=== PATIENT | female | born 1985 | race Hispanic/Latino ===

== ENCOUNTER 2019-04-23 01:19 | Emergency (ER) | payer SELFPAY ==
[2019-04-23] MEDS ORDERED: BENZONATATE 100 MG CAP PO ONE (01:46)
[2019-04-23] MEDS ORDERED: IPRATROPIUM BROM 0.5MG/2.5ML ONE (01:47)
[2019-04-23] MEDS ORDERED: ALBUTEROL 2.5 MG/3 ML NEB SOL ONE (01:47)
[2019-04-23 02:01] LABS: Urine Specific Gravity >1.030 (1.005-1.030)
[2019-04-23 02:01] LABS: Urine Blood TRACE (NEG); Urine Glucose NEGATIVE (NEG); Urine Protein NEGATIVE (NEG); Urine Specific Gravity >1.030 (1.005-1.030)
--- NOTE | 2019-04-23 02:37 | EDPHYS ---
Physician Documentation [facility] Name: Dionna Pack Age: 33 yrs Sex: Female : 1985 Arrival Date: 04/23/2019 Time: 01:20 Bed 13 Private MD: ED Physician Jeffery Fish HPI: 04/23 01:46 This 33 yrs old Female presents to ER via Ambulatory with complaints of Sore cp Throat, Chest Pain, Runny Nose. 01:47 The patient or guardian reports cough, that is intermittent, with productive sputum, cp that is yellow. Onset: The symptoms/episode began/occurred 3 day(s) ago. Associated signs and symptoms: Pertinent positives: chest pain, with cough, rhinorrhea, sore throat, Pertinent negatives: diarrhea, fever, vomiting. Severity of symptoms: in the emergency department the symptoms are unchanged despite home interventions. Historical: - Allergies: 01:21 No Known Allergies; jb4 - Home Meds: 01:21 None [Active]; jb4 - PMHx: 01:21 None; jb4 - PSHx: 01:21 None; jb4 - Immunization history:: Adult Immunizations up to date. - Social history:: Smoking status: Patient/guardian denies using tobacco, Patient/guardian denies using alcohol, street drugs. - Ebola Screening: : No symptoms or risks identified at this time. ROS: 01:47 Eyes: Negative for injury, pain, redness, and discharge. cp 01:47 Constitutional: Negative for body aches, chills, fever, poor PO intake. 01:47 ENT: Positive for rhinorrhea, sore throat, Negative for drainage from ear(s), ear pain, difficulty swallowing, difficulty handling secretions. 01:47 Cardiovascular: Positive for chest pain, with cough. 01:47 Respiratory: Positive for cough, with yellow sputum, Negative for shortness of breath, wheezing. 01:47 Abdomen/GI: Negative for abdominal pain, nausea, vomiting, and diarrhea. 01:47 Neuro: Negative for headache. 01:47 All other systems are negative. Exam: 01:49 Head/Face: Normocephalic, atraumatic. cp 01:49 Constitutional: The patient appears in no acute distress, alert, awake, non-diaphoretic, non-toxic, well developed, well nourished. 01:49 Eyes: Periorbital structures: appear normal, Conjunctiva: normal, no exudate, no injection, Sclera: no appreciated abnormality, Lids and lashes: appear normal, bilaterally. 01:49 ENT: External ear(s): are unremarkable, Ear canal(s): are normal, clear, TM's: bulging, is not appreciated, bilaterally, dullness, bilaterally, erythema, is not appreciated, bilaterally, Nose: is normal, Mouth: Lips: moist, Oral mucosa: moist, Posterior pharynx: Airway: no evidence of obstruction, patent, Tonsils: with erythema, no enlargement, no exudate, Uvula: midline, erythema, that is mild, exudate, is not appreciated. 01:49 Neck: ROM/movement: is normal, is supple, without pain, no range of motions limitations, no meningismus, no nuchal rigidity, Lymph nodes: no appreciated lymphadenopathy. 01:49 Chest/axilla: Inspection: normal, Palpation: is normal, no crepitus, no tenderness. 01:49 Cardiovascular: Rate: normal, Rhythm: regular, Heart sounds: murmur, not appreciated, Edema: is not appreciated, JVD: is not appreciated. 01:49 Respiratory: the patient does not display signs of respiratory distress, Respirations: normal, no use of accessory muscles, no retractions, no splinting, no tachypnea, labored breathing, is not present, Breath sounds: rales, are not appreciated, decreased breath sounds, are not appreciated, rhonchi, are not appreciated, stridor, is not appreciated, wheezing: is not appreciated. 01:49 Abdomen/GI: Exam negative for discomfort, distension, guarding, Inspection: abdomen appears normal. 01:49 Skin: no rash present. Vital Signs: 01:21 BP 109 / 77; Pulse 95; Resp 16; Temp 98.3(O); Pulse Ox 99% on R/A; Weight 63.5 kg (R); jb4 Height 5 ft. 0 in. (152.40 cm) (R); Pain 2/10; 02:46 BP 114 / 79; Pulse 82; Resp 18; Pulse Ox 99% on R/A; jb4 01:21 Body Mass Index 27.34 (63.50 kg, 152.40 cm) jb4 MDM: 01:28 Patient medically screened. cp 01:51 Differential diagnosis: bronchitis, flu, URI, strep throat. cp 02:36 Data reviewed: vital signs, nurses notes, lab test result(s), and as a result, I will cp discharge patient. 02:36 Antibiotic administration: Not indicated, the patient does not have an appreciated cp infiltrate. Counseling: I had a detailed discussion with the patient and/or guardian regarding: the historical points, exam findings, and any diagnostic results supporting the discharge/admit diagnosis, lab results, to return to the emergency department if symptoms worsen or persist or if there are any questions or concerns that arise at home. Response to treatment: the patient's symptoms have mildly improved after treatment, and as a result, I will discharge patient. 04/23 01:30 Order name: Influenza Screen (a \T\ B) cp 04/23 01:30 Order name: Strep cp 04/23 01:54 Order name: Urine Dipstick--Ancillary (enter results) oe 04/23 01:55 Order name: Urine --Ancillary (enter results) oe 04/23 02:39 Order name: Throat Culture EDAZ 04/23 01:30 Order name: Urine Test (obtain specimen); Complete Time: 01:53 cp Administered Medications: 01:53 Drug: Albuterol 2.5 mg Route: Inhalation; jb4 02:07 Follow up: Response: No adverse reaction jb4 01:54 Drug: AtroVENT Aerosol 0.5 mg Route: Inhalation; jb4 02:07 Follow up: Response: No adverse reaction jb4 01:54 Drug: Tessalon Perle 200 mg Route: PO; jb4 02:07 Follow up: Response: No adverse reaction jb4 Disposition: 03:49 Co-signature as Attending Physician, Jeffery Fish MD. pkl Disposition: 04/23/19 02:37 Discharged to Home. Impression: Acute upper respiratory infection, unspecified. - Condition is Stable. - Discharge Instructions: Upper Respiratory Infection, Adult. - Prescriptions for Ibuprofen 800 mg Oral Tablet - take 1 tablet by ORAL route every 8 hours As needed take with food; 30 tablet. Tessalon Perles 100 mg Oral Capsule - take 2 capsule by ORAL route every 8 hours As needed; 30 capsule. Albuterol Sulfate 90 mcg/actuation - inhale 1-2 puff by INHALATION route every 4-6 hours; 1 Inhaler. - Medication Reconciliation Form, Thank You Letter, Antibiotic Education, Prescription Opioid Use, Work release form form. - Follow up: Private Physician; When: 2 - 3 days; Reason: Worsening of condition. - Problem is new. - Symptoms have improved. Signatures: Dispatcher [employer] EDMS Jeffery Fish MD MD pkl Nikoals Hernandez PA PA Cesar Galeano, RN RN jb4 Corrections: (The following items were deleted from the chart) 02:48 02:37 04/23/2019 02:37 Discharged to Home. Impression: Acute upper respiratory jb4 infection, unspecified. Condition is Stable. Forms are Medication Reconciliation Form, Thank You Letter, Antibiotic Education, Prescription Opioid Use. Follow up: Private Physician; When: 2 - 3 days; Reason: Worsening of condition. Problem is new. Symptoms have improved. cp
--- NOTE | 2019-04-23 02:37 | ER ---
Nurse's Notes [facility] Name: Dionna Pack Age: 33 yrs Sex: Female : 1985 Arrival Date: 04/23/2019 Time: 01:20 Bed 13 Private MD: Diagnosis: Acute upper respiratory infection, unspecified Presentation: 04/23 01:21 Presenting complaint: Patient states: Starting 3 days ago I felt like my allergies were jb4 acting up. It progressed to being congested and having a soar throat. Now when I cough I have chest pain. 01:21 Transition of care: patient was not received from another setting of care. Onset of jb4 symptoms was April 20, 2019. Risk Assessment: Do you want to hurt yourself or someone else? Patient reports no desire to harm self or others. Initial Sepsis Screen: Does the patient meet any 2 criteria? HR > 90 bpm. Yes Does the patient have a suspected source of infection? Yes: Productive cough/pneumonia. Care prior to arrival: None. 01:21 Method Of Arrival: Ambulatory jb4 01:21 Acuity: CORTES 4 jb4 Triage Assessment: 01:21 General: Appears in no apparent distress. comfortable, Behavior is calm, cooperative, jb4 appropriate for age. Pain: Complains of pain in chest, throat Pain does not radiate. Pain currently is 2 out of 10 on a pain scale. EENT: Ear canal clear on left ear and right ear Throat is clear is reddened. Neuro: Level of Consciousness is awake, alert, obeys commands, Oriented to person, place, time, situation. Cardiovascular: Patient's skin is warm and dry. Respiratory: Airway is patent Respiratory effort is even, unlabored, Respiratory pattern is regular, symmetrical. GI: No deficits noted. No signs and/or symptoms were reported involving the gastrointestinal system. : No deficits noted. No signs and/or symptoms were reported regarding the genitourinary system. Derm: Skin is intact, Skin is pink, warm \T\ dry. Musculoskeletal: Circulation, motion, and sensation intact. Range of motion: intact in all extremities. Historical: - Allergies: 01:21 No Known Allergies; jb4 - Home Meds: 01:21 None [Active]; jb4 - PMHx: :21 None; jb4 - PSHx: 01:21 None; jb4 - Immunization history:: Adult Immunizations up to date. - Social history:: Smoking status: Patient/guardian denies using tobacco, Patient/guardian denies using alcohol, street drugs. - Ebola Screening: : No symptoms or risks identified at this time. Screenin:21 Abuse screen: Denies threats or abuse. Nutritional screening: No deficits noted. jb4 Tuberculosis screening: No symptoms or risk factors identified. Fall Risk None identified. Assessment: 01:21 General: see triage assessment.. jb4 02:46 Reassessment: Patient appears in no apparent distress at this time. Patient and/or jb4 family updated on plan of care and expected duration. Pain level reassessed. Patient is alert, oriented x 3, equal unlabored respirations, skin warm/dry/pink. Patient states feeling better. Vital Signs: 01:21 BP 109 / 77; Pulse 95; Resp 16; Temp 98.3(O); Pulse Ox 99% on R/A; Weight 63.5 kg (R); jb4 Height 5 ft. 0 in. (152.40 cm) (R); Pain 2/10; 02:46 BP 114 / 79; Pulse 82; Resp 18; Pulse Ox 99% on R/A; jb4 01:21 Body Mass Index 27.34 (63.50 kg, 152.40 cm) jb4 ED Course: 01:20 Patient arrived in ED. ds1 01:21 Cesar Epps, RN is Primary Nurse. jb4 01:21 Arm band placed on left wrist. jb4 01:21 Patient has correct armband on for positive identification. Placed in gown. Bed in low jb4 position. Call light in reach. Side rails up X 1. Pulse ox on. NIBP on. 01:23 Nikolas Hernandez PA is PHCP. cp 01:23 Jeffery Fish MD is Attending Physician. cp 01:31 Triage completed. jb4 01:40 Flu and/or RSV swab sent to lab. Strep swab sent to lab. jb4 01:44 Strep Sent. jb4 01:44 Influenza Screen (a \T\ B) Sent. jb4 01:54 Strep Sent. jb4 01:54 Influenza Screen (a \T\ B) Sent. jb4 02:46 No provider procedures requiring assistance completed. Patient did not have IV access jb4 during this emergency room visit. Administered Medications: 01:53 Drug: Albuterol 2.5 mg Route: Inhalation; jb4 02:07 Follow up: Response: No adverse reaction jb4 01:54 Drug: AtroVENT Aerosol 0.5 mg Route: Inhalation; jb4 02:07 Follow up: Response: No adverse reaction jb4 01:54 Drug: Tessalon Perle 200 mg Route: PO; jb4 02:07 Follow up: Response: No adverse reaction jb4 Outcome: 02:37 Discharge ordered by . jody 02:46 Discharged to home ambulatory. jb4 02:46 Condition: stable 02:46 Discharge instructions given to patient, Instructed on discharge instructions, follow up and referral plans. medication usage, Demonstrated understanding of instructions, follow-up care, medications, Prescriptions given X 3. 02:48 Patient left the ED. jb4 Signatures: Gin Arias ds1 Nikolas Hernandez PA PA Cesar Galeano, RN RN jb4
[2019-04-23 02:53] VITALS: TEMP 98.3; O2SAT 99
[2019-04-23 02:55] VITALS: BP 114/79
== END 2019-04-23 02:48 | disposition home or self-care (01) ==
LOC: ER 01:19
DX: J06.9 Acute upper respiratory infection, unspecified (principal)
CPT/HCPCS: 81003; 81025; 87070; 87081; 87804; 99284

== ENCOUNTER 2019-11-24 15:29 | Emergency (ER) | payer SELFPAY ==
[2019-11-24] MEDS ORDERED: MINERAL OIL ENEMA 135 ML BTL PR ONE (16:59)
--- NOTE | 2019-11-24 18:22 | ER ---
Nurse's Notes [facility] Name: Dionna Pack Age: 34 yrs Sex: Female : 1985 Arrival Date: 11/24/2019 Time: 15:33 Bed 8 Private MD: Diagnosis: Foreign body in ear Presentation: 11/23 15:52 Chief complaint: Patient states: my LEFTear started hurting last night, my daughter tw2 left the window open and i think a bug crawled in or something but it is still hurting, i feel something moving, my coworker brought me here because i didn't have car to get here sooner. Coronavirus screen: Proceed with normal triage. Patient denies a cough. Patient denies shortness of breath or difficulty breathing. Patient denies measured and/or subjective temperature greater than 100.4F prior to today's visit. Patient denies travel on a cruise ship or to a country the [facility] currently lists as an affected area. Patient denies contact with known and/or suspected case of COVID-19. Ebola Screen: Patient denies travel to an Ebola-affected area in the 21 days before illness onset. Initial Sepsis Screen: Does the patient meet any 2 criteria? No. Patient's initial sepsis screen is negative. Does the patient have a suspected source of infection? No. Patient's initial sepsis screen is negative. Risk Assessment: Do you want to hurt yourself or someone else? Patient reports no desire to harm self or others. Onset of symptoms was November 24, 2019. 15:52 Method Of Arrival: Ambulatory tw2 15:52 Acuity: CORTES 4 tw2 Triage Assessment: 15:55 General: Appears in no apparent distress. Behavior is calm, cooperative, appropriate tw2 for age. Pain: Complains of pain in left ear. EENT: Reports pain in left ear. Historical: - Allergies: 15:54 No Known Allergies; tw2 - Home Meds: 15:54 None [Active]; tw2 - PMHx: 15:54 None; tw2 - PSHx: 15:54 ; tw2 - Immunization history:: Adult Immunizations. - Social history:: Smoking status: Patient/guardian denies using. Screenin:45 Abuse screen: Denies threats or abuse. Denies injuries from another. Nutritional sv screening: No deficits noted. Tuberculosis screening: No symptoms or risk factors identified. Fall Risk None identified. Assessment: 16:46 General: Appears in no apparent distress. uncomfortable, well groomed, Behavior is ph calm, cooperative, appropriate for age. Pain: Complains of pain in left ear. Neuro: Level of Consciousness is awake, alert, obeys commands, Oriented to person, place, time, situation. Cardiovascular: Capillary refill < 3 seconds in bilateral fingers Patient's skin is warm and dry. Respiratory: Airway is patent Respiratory effort is even, unlabored. EENT: Reports pain in left ear. Derm: Skin is intact, is healthy with good turgor, Skin is pink, warm \T\ dry. Musculoskeletal: Circulation, motion, and sensation intact. Range of motion: intact in all extremities. 17:47 Reassessment: Stan LOPEZ at the bedside attempting to get the insect out of her left ear. sv 18:41 Reassessment: Patient appears in no apparent distress at this time. No changes from sv previously documented assessment. Patient and/or family updated on plan of care and expected duration. Pain level reassessed. Patient is alert, oriented x 3, equal unlabored respirations, skin warm/dry/pink. Vital Signs: 15:52 BP 131 / 94; Pulse 78; Resp 17; Temp 97.8(TE); Pulse Ox 100% on R/A; Weight 61.23 kg tw2 (R); Height 5 ft. 0 in. (152.40 cm); Pain 8/10; 18:33 BP 127 / 98; Pulse 81; Resp 18; Temp 98.0; Pulse Ox 96% on R/A; ph 15:52 Body Mass Index 26.37 (61.23 kg, 152.40 cm) tw2 ED Course: 15:33 Patient arrived in ED. mr 15:54 Triage completed. tw2 15:54 Arm band placed on. tw2 16:30 Yumi Correa RN is Primary Nurse. sv 16:31 Stan Sena PA is PHCP. jr8 16:31 Nikolas Ladd MD is Attending Physician. jr8 16:45 Patient has correct armband on for positive identification. Bed in low position. Call sv light in reach. Door closed. Head of bed elevated. 18:00 Patient did not have IV access during this emergency room visit. Ear irrigation: Route ph left ear with Normal Saline amount 250ml Patient tolerated well. 18:20 Yumi Vora MD is Referral Physician. jr8 18:31 removal of foreign body (bug) from L ear, after multiple attempts and irrigation ph foreign body only partially removed, attempt to remove remainder has become painful for pt, provider to place pt on antibiotics to prevent infection and pt instructed to follow up w/ ENT. Administered Medications: 17:00 Drug: Viscous Lidocaine Liquid (4 %) 5 ml Route: Mucous Membrane; sv 18:34 Follow up: Response: No adverse reaction ph Outcome: 18:20 Discharge ordered by . jr8 18:41 Discharged to home ambulatory. sv 18:41 Condition: stable 18:41 Discharge instructions given to patient, Instructed on discharge instructions, follow up and referral plans. medication usage, Demonstrated understanding of instructions, follow-up care, medications, Prescriptions given X 1. 18:42 Patient left the ED. sv Signatures: Yumi Correa, RN RN De GuzmanEmiliana mr SenaStan, JOHN LOPEZ jr8 iKra Salcedo, SONAL PRUITT Alessandra Pierre RN RN tw2 Corrections: (The following items were deleted from the chart) 16:48 15:52 Chief complaint: Patient states: my LEFT eye started hurting last night, my tw2 daughter left the window open and i think a bug crawled in or something but it is still hurting, i feel something moving, my coworker brought me here because i didn't have car to get here sooner tw2
--- NOTE | 2019-11-24 18:22 | EDPHYS ---
Physician Documentation [facility] Name: Dionna Pack Age: 34 yrs Sex: Female : 1985 Arrival Date: 11/24/2019 Time: 15:33 Bed 8 Private MD: ED Physician Nikolas Ladd HPI: 11/23 17:02 This 34 yrs old Female presents to ER via Ambulatory with complaints of Ear jr8 Pain. 17:02 The patient presents with a foreign body sensation, presumably from an insect, pain. jr8 The complaints affect the left ear. Onset: The symptoms/episode began/occurred acutely, today. Modifying factors: The symptoms are alleviated by nothing, the symptoms are aggravated by nothing. Associated signs and symptoms: The patient has no apparent associated signs or symptoms. Severity of symptoms: At their worst the symptoms were mild in the emergency department the symptoms are unchanged. The patient has not experienced similar symptoms in the past. The patient has not recently seen a physician. Patient stated that she feels something crawling in ear. Historical: - Allergies: 15:54 No Known Allergies; tw2 - Home Meds: 15:54 None [Active]; tw2 - PMHx: 15:54 None; tw2 - PSHx: 15:54 ; tw2 - Immunization history:: Adult Immunizations. - Social history:: Smoking status: Patient/guardian denies using. ROS: 17:02 Eyes: Negative for injury, pain, redness, and discharge, Neck: Negative for injury, jr8 pain, and swelling, Cardiovascular: Negative for chest pain, palpitations, and edema, Respiratory: Negative for shortness of breath, cough, wheezing, and pleuritic chest pain, Abdomen/GI: Negative for abdominal pain, nausea, vomiting, diarrhea, and constipation, Back: Negative for injury and pain, MS/Extremity: Negative for injury and deformity, Skin: Negative for injury, rash, and discoloration, Neuro: Negative for headache, weakness, numbness, tingling, and seizure. 17:02 ENT: Positive for ear pain, foreign body sensation. Exam: 17:02 Constitutional: This is a well developed, well nourished patient who is awake, alert, jr8 and in no acute distress. ENT: Nares patent. No nasal discharge, no septal abnormalities noted. Tympanic membranes are normal. Left external canal with insect in ear. Right canal normal. Oropharynx with no redness, swelling, or masses, exudates, or evidence of obstruction, uvula midline. Mucous membranes moist. Cardiovascular: Regular rate and rhythm with a normal S1 and S2. No gallops, murmurs, or rubs. Normal PMI, no JVD. No pulse deficits. Respiratory: Lungs have equal breath sounds bilaterally, clear to auscultation and percussion. No rales, rhonchi or wheezes noted. No increased work of breathing, no retractions or nasal flaring. Skin: Warm, dry with normal turgor. Normal color with no rashes, no lesions, and no evidence of cellulitis. MS/ Extremity: Pulses equal, no cyanosis. Neurovascular intact. Full, normal range of motion. Neuro: Awake and alert, GCS 15, oriented to person, place, time, and situation. Cranial nerves II-XII grossly intact. Motor strength 5/5 in all extremities. Sensory grossly intact. Cerebellar exam normal. Normal gait. Vital Signs: 15:52 BP 131 / 94; Pulse 78; Resp 17; Temp 97.8(TE); Pulse Ox 100% on R/A; Weight 61.23 kg tw2 (R); Height 5 ft. 0 in. (152.40 cm); Pain 8/10; 18:33 BP 127 / 98; Pulse 81; Resp 18; Temp 98.0; Pulse Ox 96% on R/A; ph 15:52 Body Mass Index 26.37 (61.23 kg, 152.40 cm) tw2 Procedures: 18:18 Foreign Body Removal: insect, from the left ear canal, by using a curette, lidocaine jr8 lavage, normal saline irrigation, The patient tolerated the removal well. MDM: 16:31 Patient medically screened. jr8 18:18 Data reviewed: vital signs, nurses notes. Data interpreted: Pulse oximetry: on room air jr8 is 100 %. Interpretation: normal. Counseling: I had a detailed discussion with the patient and/or guardian regarding: the historical points, exam findings, and any diagnostic results supporting the discharge/admit diagnosis, the need for outpatient follow up, an ENT specialist, to return to the emergency department if symptoms worsen or persist or if there are any questions or concerns that arise at home. ED course: Was able to extract most of insect but still some in there but too deep and too near TM to get the rest. Will put on Abx drops and send to ENT for rest of extraction . Administered Medications: 17:00 Drug: Viscous Lidocaine Liquid (4 %) 5 ml Route: Mucous Membrane; sv 18:34 Follow up: Response: No adverse reaction ph Disposition: 11/24/19 18:20 Discharged to Home. Impression: Foreign body in ear. - Condition is Stable. - Discharge Instructions: Ear Foreign Body. - Prescriptions for Ciprodex 0.3- 0.1 % Otic Drops, Suspension - instill 4 drop by OTIC route every 12 hours for 7 days , for ears ONLY; 1 Container. - Medication Reconciliation Form, Thank You Letter, Antibiotic Education, Prescription Opioid Use form. - Follow up: Yumi Vora MD; When: 2 - 3 days; Reason: Recheck today's complaints, Continuance of care, Re-evaluation by your physician. - Problem is new. - Symptoms have improved. Addendum: 11/25/2019 18:42 Co-signature as Attending Physician, Nikolas Ladd MD I agree with the assessment and c diaz plan of care. Signatures: Yumi Correa, RN RN Nikolas Ayon MD MD cha Roszak, Josh, PA PA jr8 Alessandra Pierre RN RN tw2 Kira Salcedo RN ph Corrections: (The following items were deleted from the chart) 11/23 18:42 18:20 11/24/2019 18:20 Discharged to Home. Impression: Foreign body in ear. Condition sv is Stable. Forms are Medication Reconciliation Form, Thank You Letter, Antibiotic Education, Prescription Opioid Use. Follow up: Yumi Vora; When: 2 - 3 days; Reason: Recheck today's complaints, Continuance of care, Re-evaluation by your physician. Problem is new. Symptoms have improved. jr8
[2019-11-24 18:48] VITALS: BP 127/98; TEMP 98; O2SAT 96
== END 2019-11-24 18:42 | disposition home or self-care (01) ==
LOC: ER 15:29
PROC: 09C47ZZ Extirpation of Matter from Left External Auditory Canal, Via Natural or Artificial Opening (ICD-10-PCS; principal; 2019-11-24)
DX: T16.2XXA Foreign body in left ear, initial encounter (principal); X58.XXXA Exposure to other specified factors, initial encounter; Y93.9 Activity, unspecified; Y92.013 Bedroom of single-family (private) house as the place of occurrence of the external cause
CPT/HCPCS: 99283

== ENCOUNTER 2020-04-16 23:36 | Emergency (ER) | payer SELFPAY ==
--- NOTE | 2020-04-17 01:31 | EDPHYS ---
Physician Documentation [facility] Name: Dionna Pack Age: 34 yrs Sex: Female : 1985 Arrival Date: 04/16/2020 Time: 23:38 Bed 4 Private MD: ED Physician Cachorro Lewis HPI: 04/17 00:37 This 34 yrs old Female presents to ER via Wheelchair with complaints of Leg mh7 Injury, Fall Injury. 00:37 The patient presents with an injury. The complaints affect the dorsum of left foot. mh7 Context: The problem was sustained at a relative's home, resulted from a direct blow, from a heavy object. Onset: The symptoms/episode began/occurred 2 day(s) ago. 00:55 Modifying factors: The symptoms are alleviated by nothing. the symptoms are aggravated mh7 by weight bearing. Associated signs and symptoms: Pertinent positives: swelling, Pertinent negatives calf tenderness, fever, nausea, numbness, rash, tingling, vomiting, warmth, weakness. Treatment prior to arrival includes: no previous treatment. Severity of symptoms: At their worst the symptoms were moderate, 2 day(s) ago, in the emergency department the symptoms have improved, moderately. Patient states that she was helping someone move a heavy piece of furniture down some stairs when the furniture slipped and fell onto her foot. She denies any other injuries.. 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 - Social history:: Smoking status: unknown Patient/guardian denies using alcohol, street drugs. ROS: 04/17 00:55 Constitutional: Negative for fever, chills, and weight loss, Eyes: Negative for injury, mh7 pain, redness, and discharge, ENT: Negative for injury, pain, and discharge, Neck: Negative for injury, pain, and swelling, Cardiovascular: Negative for chest pain, palpitations, and edema, Respiratory: Negative for shortness of breath, cough, wheezing, and pleuritic chest pain, Abdomen/GI: Negative for abdominal pain, nausea, vomiting, diarrhea, and constipation, Back: Negative for injury and pain, : Negative for injury, bleeding, discharge, and swelling, Skin: Negative for injury, rash, and discoloration, Neuro: Negative for headache, weakness, numbness, tingling, and seizure, Psych: Negative for depression, anxiety, suicide ideation, homicidal ideation, and hallucinations, Allergy/Immunology: Negative for hives, rash, and allergies, Endocrine: Negative for neck swelling, polydipsia, polyuria, polyphagia, and marked weight changes, Hematologic/Lymphatic: Negative for swollen nodes, abnormal bleeding, and unusual bruising. Exam: 00:55 Constitutional: This is a well developed, well nourished patient who is awake, alert, mh7 and in no acute distress. Head/Face: Normocephalic, atraumatic. Eyes: Pupils equal round and reactive to light, extra-ocular motions intact. Lids and lashes normal. Conjunctiva and sclera are non-icteric and not injected. Cornea within normal limits. Periorbital areas with no swelling, redness, or edema. Neck: Trachea midline, no thyromegaly or masses palpated, and no cervical lymphadenopathy. Supple, full range of motion without nuchal rigidity, or vertebral point tenderness. No Meningismus. Chest/axilla: Normal chest wall appearance and motion. Nontender with no deformity. No lesions are appreciated. Cardiovascular: Regular rate and rhythm with a normal S1 and S2. No gallops, murmurs, or rubs. Normal PMI, no JVD. No pulse deficits. Respiratory: Lungs have equal breath sounds bilaterally, clear to auscultation and percussion. No rales, rhonchi or wheezes noted. No increased work of breathing, no retractions or nasal flaring. Abdomen/GI: Soft, non-tender, with normal bowel sounds. No distension or tympany. No guarding or rebound. No evidence of tenderness throughout. Back: No spinal tenderness. No costovertebral tenderness. Full range of motion. Neuro: Awake and alert, GCS 15, oriented to person, place, time, and situation. Cranial nerves II-XII grossly intact. Motor strength 5/5 in all extremities. Sensory grossly intact. Cerebellar exam normal. Normal gait. Psych: Awake, alert, with orientation to person, place and time. Behavior, mood, and affect are within normal limits. 01:21 Musculoskeletal/extremity: Extremities: noted in the dorsum of left foot: abrasion, mh7 contusion, pain, swelling, noted in the left ankle: pain, swelling, ROM: intact in all extremities, Circulation is intact in all extremities. Pulses: are normal with no appreciated deficits, Perfusion: the patient is normally perfused throughout, Perfusion: the extremity is normally perfused throughout, Calf tenderness, is absent, Edema, is not appreciated, Sensation intact. Compartment Syndrome exam of affected extremity: is normal. no numbness, no tingling, no sensation deficit, no palor, no weak pulses, Joints: Weight bearing: able to fully bear weight, Tendon exam: specific tendon testing normal through active and passive range of motion 01:21 Skin: injury, abrasion(s), small abrasion noted, of the dorsum of left foot, contusion(s), that are superficial, of the dorsum of left foot. Vital Signs: 04/16 23:45 BP 145 / 96; Pulse 89; Resp 16; Temp 98.3; Pulse Ox 99% ; Weight 63.5 kg; Height 5 ft. rr5 0 in. (152.40 cm); Pain 9/10; 04/17 01:08 BP 105 / 63; Pulse 72; Resp 16; Pulse Ox 100% on R/A; ll2 01:35 BP 110 / 70; Pulse 75; Resp 16; Pulse Ox 99% ; rr5 04/16 23:45 Body Mass Index 27.34 (63.50 kg, 152.40 cm) rr5 MDM: 04/16 23:56 Patient medically screened. mh7 04/17 01:21 Differential diagnosis: dislocation, closed fracture, contusion, abrasion. Data 7 reviewed: vital signs, nurses notes, radiologic studies, plain films. Data interpreted: Pulse oximetry: on room air is 100 %. Interpretation: normal. Counseling: I had a detailed discussion with the patient and/or guardian regarding: the historical points, exam findings, and any diagnostic results supporting the discharge/admit diagnosis, radiology results, the need for outpatient follow up, to return to the emergency department if symptoms worsen or persist or if there are any questions or concerns that arise at home. Response to treatment: the patient's symptoms have markedly improved after treatment. 04/16 23:58 Order name: Foot Left 3 View XRAY 7 04/17 00:00 Order name: Ankle Left 3 View XRAY 7 04/17 01:54 Order name: Aircast Ankle Splint; Complete Time: :54 5 Administered Medications: 01:24 Drug: Ibuprofen 600 mg Route: PO; rr5 01:51 Follow up: Response: Medication administered at discharge. rr5 Disposition: 04/17/20 01:30 Discharged to Home. Impression: Left Foot Contusion . - Condition is Stable. - Discharge Instructions: Foot Contusion, [id number]. - Prescriptions for Ibuprofen 600 mg Oral Tablet - take 1 tablet by ORAL route every 8 hours As needed take with food; 15 tablet. - Medication Reconciliation Form, Thank You Letter, Antibiotic Education, Prescription Opioid Use form. - Follow up: Private Physician; When: 1 - 2 days; Reason: Worsening of condition, Recheck today's complaints, Continuance of care, Re-evaluation by your physician. Follow up: Clyde Mccray DPM; When: 1 - 2 days; Reason: Worsening of condition, Recheck today's complaints. - Problem is new. - Symptoms have improved. Signatures: Dispatcher [employer] EDMS Cliff Aguilar RN RN rr5 Cachorro Lewis MD MD mh7 Corrections: (The following items were deleted from the chart) 01:44 01:30 04/17/2020 01:30 Discharged to Home. Impression: Left Foot Contusion . Condition rr5 is Stable. Forms are Medication Reconciliation Form, Thank You Letter, Antibiotic Education, Prescription Opioid Use. Follow up: Private Physician; When: 1 - 2 days; Reason: Worsening of condition, Recheck today's complaints, Continuance of care, Re-evaluation by your physician. Follow up: Clyde Mccray; When: 1 - 2 days; Reason: Worsening of condition, Recheck today's complaints. Problem is new. Symptoms have improved. 7 :54 01:54 Misc. Order ordered. rr5 rr5 01:55 01:44 04/17/2020 01:30 Discharged to Home. Impression: Left Foot Contusion . Condition rr5 is Stable. Discharge Instructions: Foot Contusion, [id number]. Prescriptions for Ibuprofen 600 mg Oral Tablet - take 1 tablet by ORAL route every 8 hours As needed take with food; 15 tablet. and Forms are Medication Reconciliation Form, Thank You Letter, Antibiotic Education, Prescription Opioid Use. Follow up: Private Physician; When: 1 - 2 days; Reason: Worsening of condition, Recheck today's complaints, Continuance of care, Re-evaluation by your physician. Follow up: Clyde Mccray; When: 1 - 2 days; Reason: Worsening of condition, Recheck today's complaints. Problem is new. Symptoms have improved. rr5
--- NOTE | 2020-04-17 01:31 | ER ---
Nurse's Notes [facility] Name: Dionna Pack Age: 34 yrs Sex: Female : 1985 Arrival Date: 04/16/2020 Time: 23:38 Bed 4 Private MD: Diagnosis: Left Foot Contusion Presentation: 04/16 23:45 Chief complaint: Patient states: my left foot is hurting. 2 days ago I fell down on a rr5 stairs 2 steps height then a dresser fell on my foot. denies Loss of consciousness. 23:45 Coronavirus screen: Client denies travel out of the [place] in the last 14 days. At this rr5 time, the client does not indicate any symptoms associated with coronavirus-19. Ebola Screen: Patient negative for fever greater than or equal to 101.5 degrees Fahrenheit, and additional compatible Ebola Virus Disease symptoms Patient denies exposure to infectious person. Patient denies travel to an Ebola-affected area in the 21 days before illness onset. Initial Sepsis Screen: Does the patient meet any 2 criteria? No. Patient's initial sepsis screen is negative. Does the patient have a suspected source of infection? No. Patient's initial sepsis screen is negative. Risk Assessment: Do you want to hurt yourself or someone else? Patient reports no desire to harm self or others. Onset of symptoms was April 14, 2020. 23:45 Method Of Arrival: Wheelchair rr5 23:45 Acuity: CORTES 4 rr5 BAIT TIER: 04/17 00:03 LMP 04/10/2020 rr5 Historical: - Allergies: 04/16 23:45 No Known Allergies; rr5 - Home Meds: 23:45 None [Active]; rr5 - PMHx: 23:45 None; rr5 - PSHx: 23:45 ; rr5 - Immunization history:: Adult Immunizations up to date, Last tetanus immunization: < 5 years ago. - Social history:: Smoking status: unknown Patient/guardian denies using alcohol, street drugs. Screenin:51 Abuse screen: Denies threats or abuse. Denies injuries from another. Nutritional rr5 screening: No deficits noted. Tuberculosis screening: No symptoms or risk factors identified. Fall Risk Fall in past 12 months (25 points). IV access (20 points). Total Benton Fall Scale indicates High Risk Score (45 or more points). Fall prevention measures have been instituted. Side Rails Up X 2 Placed Close to Nursing Station Frequent Obs/Assessments Occuring As available patient and family educated on Fall Prevention Program and Strategies. Assessment: 23:51 General: Appears in no apparent distress. uncomfortable, Behavior is calm, cooperative, rr5 appropriate for age. Pain: Complains of pain in left foot Pain currently is 9 out of 10 on a pain scale. Quality of pain is described as aching, Pain began suddenly, Is intermittent. Neuro: Level of Consciousness is awake, alert, obeys commands, Oriented to person, place, time, situation. Cardiovascular: Capillary refill < 3 seconds Patient's skin is warm and dry. Respiratory: Airway is patent Respiratory effort is even, unlabored, Respiratory pattern is regular, symmetrical. GI: No signs and/or symptoms were reported involving the gastrointestinal system. : No signs and/or symptoms were reported regarding the genitourinary system. EENT: No signs and/or symptoms were reported regarding the EENT system. Derm: Skin is intact, is healthy with good turgor, Skin temperature is warm Wound noted right foot and left foot Wound is abrasion. Musculoskeletal: Capillary refill < 3 seconds, Swelling present in left foot. 04/17 01:00 Reassessment: Patient appears in no apparent distress at this time. Patient and/or rr5 family updated on plan of care and expected duration. Pain level reassessed. Patient is alert, oriented x 3, equal unlabored respirations, skin warm/dry/pink. awaiting for result. 01:40 Reassessment: Patient appears in no apparent distress at this time. Patient is alert, rr5 oriented x 3, equal unlabored respirations, skin warm/dry/pink. discharge instruction given and explained without complaints made. Vital Signs: 04/16 23:45 BP 145 / 96; Pulse 89; Resp 16; Temp 98.3; Pulse Ox 99% ; Weight 63.5 kg; Height 5 ft. rr5 0 in. (152.40 cm); Pain 02/23; 04/17 01:08 BP 105 / 63; Pulse 72; Resp 16; Pulse Ox 100% on R/A; ll2 01:35 BP 110 / 70; Pulse 75; Resp 16; Pulse Ox 99% ; rr5 04/16 23:45 Body Mass Index 27.34 (63.50 kg, 152.40 cm) rr5 ED Course: 04/16 23:38 Patient arrived in ED. am2 23:47 Cachorro Lewis MD is Attending Physician. 7 23:47 Cliff Aguilar, RN is Primary Nurse. rr5 23:50 Triage completed. rr5 23:51 Arm band placed on right wrist. rr5 23:51 Patient has correct armband on for positive identification. Bed in low position. Call ea light in reach. Side rails up X 1. 11 00:50 Foot Left 3 View XRAY In Process Unspecified. EDMS 00:50 Ankle Left 3 View XRAY In Process Unspecified. EDMS 01:29 Clyde Mccray DPM is Referral Physician. 7 01:30 air cast ortho boots left foot. rr5 01:35 No provider procedures requiring assistance completed. Patient did not have IV access rr5 during this emergency room visit. 01:52 Primary Nurse role handed off by Cliff Aguilar RN rr5 01:52 Cliff Aguilar RN is Primary Nurse. rr5 Administered Medications: 01:24 Drug: Ibuprofen 600 mg Route: PO; rr5 01:51 Follow up: Response: Medication administered at discharge. rr5 Outcome: 01:30 Discharge ordered by . 7 01:40 Discharged to home ambulatory. rr5 01:40 Condition: stable 01:40 Discharge instructions given to patient, Instructed on discharge instructions, follow up and referral plans. medication usage, Demonstrated understanding of instructions, follow-up care, medications, Prescriptions given X 1. 01:44 Patient left the ED. rr5 01:55 Patient left the ED. rr5 Signatures: Dispatcher [employer] EDWI Cuca Stone am2 Rima Wade RN RN ea Roque, Raymond, RN RN rr5 Ketty Renteria RN RN 2 Cachorro Lewis MD MD 7 Corrections: (The following items were deleted from the chart) 01:58 01:30 air cast ortho boots rr5 rr5
[2020-04-17] MEDS ORDERED: IBUPROFEN 400 MG TAB ONE (01:36)
[2020-04-17] MEDS ORDERED: IBUPROFEN 200 MG TAB PO ONE (01:36)
[2020-04-17 01:54] VITALS: TEMP 98.3
[2020-04-17 01:55] VITALS: BP 105/63; O2SAT 100
--- NOTE | 2020-04-17 09:57 | RAD REPORT ---
EXAM DESCRIPTION: Ankle Left 3 View CLINICAL HISTORY: 34 years,Female,trauma COMPARISON: None. TECHNIQUE: Three views of the left foot and three views of the left ankle. FINDINGS: No acute fractures or dislocations are identified. No osseous destructive lesions. There is a radiopaque density along the plantar surface of the foot which could be external to the patient . Clinical correlation recommended to exclude a radiopaque foreign body. IMPRESSION: No acute fracture is identified. There is a radiopaque density along the plantar surface of the foot which could be external to the pa tient. Clinical correlation recommended to exclude a radiopaque foreign body. Electronically signed by: Yo Fink MD 04/17/2020 12:56 AM WIND FIELD SERVICE MANAGER Due to temporary technical issues with the PACS/Fluency reporting system, reports are being signed by the in house radiologist without review as a courtesy to ensure prompt reporting. The interpreting r adiologist is fully responsible for the content of the report.
--- NOTE | 2020-04-17 09:58 | RAD REPORT ---
EXAM DESCRIPTION: Foot Left 3 View CLINICAL HISTORY: 34 years,Female,trauma COMPARISON: None. TECHNIQUE: Three views of the left foot and three views of the left ankle. FINDINGS: No acute fractures or dislocations are identified. No osseous destructive lesions. There is a radio paque density along the plantar surface of the foot which could be external to the patient. Clinical correlation recommended to exclude a radiopaque foreign body. IMPRESSION: No acute fracture is identified. There is a radiopaque density along the plantar surface of the foot which could be external to the pa tient. Clinical correlation recommended to exclude a radiopaque foreign body. Electronically signed by: Yo Fink MD 04/17/2020 12:56 AM IRON MINER Due to temporary technical issues with the PACS/Fluency reporting system, reports are being signed by the in house radiologist without review as a courtesy to ensure prompt reporting. The interpreting r adiologist is fully responsible for the content of the report.
== END 2020-04-17 01:55 | disposition home or self-care (01) ==
LOC: ER 23:36
DX: S90.32XA Contusion of left foot, initial encounter (principal); W20.8XXA Other cause of strike by thrown, projected or falling object, initial encounter; Y93.89 Activity, other specified; Y92.89 Other specified places as the place of occurrence of the external cause
CPT/HCPCS: 99284

== ENCOUNTER 2021-01-04 13:03 | Emergency (ER) | payer SELFPAY ==
--- NOTE | 2021-01-04 15:28 | ER ---
Nurse's Notes [facility] Name: Dionna Pack Age: 35 yrs Sex: Female : 1985 Arrival Date: 01/04/2021 Time: 13:05 Bed Waiting Private MD: Diagnosis: Diarrhea, unspecified Presentation: 01/04 13:19 Coronavirus screen: Client denies travel out of the [place] in the last 14 days. Ebola hb Screen: Patient denies exposure to infectious person. Patient denies travel to an Ebola-affected area in the 21 days before illness onset. Initial Sepsis Screen: Does the patient meet any 2 criteria? No. Patient's initial sepsis screen is negative. Does the patient have a suspected source of infection? No. Patient's initial sepsis screen is negative. Risk Assessment: Do you want to hurt yourself or someone else? Patient reports no desire to harm self or others. Onset of symptoms was December 31, 2020. 13:19 Method Of Arrival: Ambulatory hb 13:19 Acuity: CORTES 4 hb 13:19 Chief complaint: Patient states: abd pain that began today after eating. hb Historical: - Allergies: 13:37 NSAIDS (Non-Steroidal Anti-Inflammatory Drug); ss - Home Meds: 13:23 None [Active]; ss - PMHx: 13:23 None; ss - PSHx: 13:23 ; ss - Immunization history:: Adult Immunizations up to date, Client reports having NOT received the Covid vaccine. - Social history:: Smoking status: Patient denies any tobacco usage or history of. Screenin:19 Abuse screen: Denies threats or abuse. Denies injuries from another. Nutritional ss screening: No deficits noted. Tuberculosis screening: Never had TB. Fall Risk None identified. Assessment: 13:19 General: Appears in no apparent distress. comfortable, Behavior is calm, cooperative, ss Denies fever, feeling ill, fatigue, chills. Pain: Complains of pain in abdomen Pain currently is 0 out of 10 on a pain scale. Quality of pain is described as tender, Is episodic. Neuro: Level of Consciousness is awake, alert, obeys commands, Oriented to person, place, time, situation, Hedge Fund Manager are equal bilaterally. Cardiovascular: Capillary refill < 3 seconds is brisk in bilateral fingers Patient's skin is warm and dry. Respiratory: Airway is patent Trachea midline Respiratory effort is even, unlabored, Respiratory pattern is regular, symmetrical. GI: Abdomen is non-distended. : Denies. EENT: Oral mucosa is moist. Throat is clear. Derm: Skin is intact, is healthy with good turgor, Skin is dry, Skin is pink, warm \T\ dry. normal. Musculoskeletal: Range of motion: intact in all extremities, Swelling absent. Vital Signs: 13:19 BP 125 / 87; Pulse 90; Resp 16; Temp 97.7; Pulse Ox 99% on R/A; Weight 68.04 kg; Height ss 5 ft. 0 in. (152.40 cm); Pain 0/10; 13:19 Body Mass Index 29.30 (68.04 kg, 152.40 cm) ss ED Course: 13:05 Patient arrived in ED. rg4 13:21 Triage completed. hb 13:23 Arm band placed on right wrist. ss 13:28 Richa Carr FNP-C is PHCP. kb 13:28 Nikolas Ladd MD is Attending Physician. kb 15:35 Patient has correct armband on for positive identification. Bed in low position. Call ss light in reach. 15:35 No provider procedures requiring assistance completed. Patient did not have IV access ss during this emergency room visit. 15:40 Aspen Burciaga, RN is Primary Nurse. hb Administered Medications: No medications were administered Outcome: 15:27 Discharge ordered by . kb 15:40 Patient left the ED. hb Signatures: Richa Carr FNP-C FNP-Ckb Smirch, Shelby, RN RN Aspen Burciaga RN RN Lucina Vela rg4 Corrections: (The following items were deleted from the chart) 13:22 13:19 Chief complaint: Parent and/or Guardian states: abd pain and diarrhea that begen hb 4 days ago. Was seen in [place] [facility] and told it was a 24 hour virus. hb 13:22 13:19 Pulse 103bpm; Resp 18bpm; Pulse Ox 100% RA; Temp 98.9F Temporal; 37.5 kg; Pain hb 0/10; hb 13:29 13:19 BP 125 / 87; Pulse 90bpm; Resp 16bpm; Pulse Ox 99% RA; Temp 97.7F; 68.04 kg; ss Height 5 ft. 0 in.; BMI: 29.2; Pain 0/10; hb 13:37 13:23 Allergies: No Known Allergies; ss ss
--- NOTE | 2021-01-04 15:28 | EDPHYS ---
Physician Documentation [facility] Name: Dionna Pack Age: 35 yrs Sex: Female : 1985 Arrival Date: 01/04/2021 Time: 13:05 Bed Waiting Private MD: ED Physician Nikolas Ladd HPI: 01/04 13:55 This 35 yrs old Female presents to ER via Ambulatory with complaints of Fever, kb Vomiting. 13:55 The patient presents with abdominal pain in the epigastric area. Onset: The kb symptoms/episode began/occurred this morning. The symptoms do not radiate. Associated signs and symptoms: Pertinent positives: diarrhea, Pertinent negatives: nausea and vomiting, fever. The symptoms are described as achy. Modifying factors: The symptoms are alleviated by nothing, the symptoms are aggravated by nothing. Severity of pain: At its worst the pain was mild moderate in the emergency department the pain has resolved. The patient has not experienced similar symptoms in the past. The patient has not recently seen a physician. Pt reports upper abd pain and diarrhea after eating this morning. Symptoms now resolved. Both kids have similar symptoms. Historical: - Allergies: 13:37 NSAIDS (Non-Steroidal Anti-Inflammatory Drug); ss - Home Meds: 13:23 None [Active]; ss - PMHx: 13:23 None; ss - PSHx: 13:23 ; ss - Immunization history:: Adult Immunizations up to date, Client reports having NOT received the Covid vaccine. - Social history:: Smoking status: Patient denies any tobacco usage or history of. ROS: 13:56 Constitutional: Negative for fever, chills, and weight loss. kb 13:56 Abdomen/GI: Positive for abdominal pain, diarrhea, Negative for nausea and vomiting. 13:56 All other systems are negative. Exam: 13:56 Constitutional: This is a well developed, well nourished patient who is awake, alert, kb and in no acute distress. Head/Face: Normocephalic, atraumatic. ENT: Moist Mucous membranes Cardiovascular: Regular rate and rhythm with a normal S1 and S2. No gallops, murmurs, or rubs. No pulse deficits. Respiratory: Respirations even and unlabored. No increased work of breathing, no retractions or nasal flaring. Skin: Warm, dry with normal turgor. Normal color. MS/ Extremity: Pulses equal, no cyanosis. Neurovascular intact. Full, normal range of motion. Neuro: Awake and alert, GCS 15, oriented to person, place, time, and situation. Moves all extremities. Normal gait. Psych: Awake, alert, with orientation to person, place and time. Behavior, mood, and affect are within normal limits. 13:56 Abdomen/GI: Inspection: abdomen appears normal, Bowel sounds: normal, in all quadrants, Palpation: soft, in all quadrants, mild abdominal tenderness, in the epigastric area. Vital Signs: 13:19 BP 125 / 87; Pulse 90; Resp 16; Temp 97.7; Pulse Ox 99% on R/A; Weight 68.04 kg; Height ss 5 ft. 0 in. (152.40 cm); Pain 0/10; 13:19 Body Mass Index 29.30 (68.04 kg, 152.40 cm) ss MDM: 13:28 Patient medically screened. 13:55 Data reviewed: vital signs, nurses notes. Data interpreted: Pulse oximetry: on room air kb is 99 %. Interpretation: normal. 15:27 Counseling: I had a detailed discussion with the patient and/or guardian regarding: the kb historical points, exam findings, and any diagnostic results supporting the discharge/admit diagnosis, lab results, the need for outpatient follow up, a family practitioner, to return to the emergency department if symptoms worsen or persist or if there are any questions or concerns that arise at home. 15:29 ED course: Tolerating PO intake. 01/04 13:29 Order name: Flu 01/04 13:29 Order name: COVID-19 : Document "Date of Symptom Onset" if Symptomatic. 01/04 13:29 Order name: Influenza Screen (A ; Complete Time: 14:15 EDOH 01/04 14:52 Order name: SARS-COV-2 RT PCR; Complete Time: 14:55 EDOH 01/04 15:14 Order name: PO challenge; Complete Time: 15:14 kb Administered Medications: No medications were administered Disposition: 01/05 09:07 Co-signature as Attending Physician, Nikolas Ladd MD I agree with the assessment and kyle plan of care. Disposition Summary: 01/04/21 15:27 Discharge Ordered Location: Home kb Condition: Stable kb Diagnosis - Diarrhea, unspecified kb Followup: kb - With: Emergency Department - When: As needed - Reason: Worsening of condition Followup: kb - With: Private Physician - When: 2 - 3 days - Reason: Recheck today's complaints, Continuance of care, Re-evaluation by your physician Discharge Instructions: - Discharge Summary Sheet kb - Food Choices to Help Relieve Diarrhea, Adult kb - Diarrhea, Adult, [id number] kb Forms: - Medication Reconciliation Form kb - Thank You Letter kb - Antibiotic Education kb - Prescription Opioid Use kb - Work release form em1 Signatures: Dispatcher [employer] EDMS Richa Carr, SHANK STITCHER-C SHANK STITCHER-Nikolas Lucia MD MD cha Smirch, Shelby, RN RN Aspen Burciaga RN RN Corrections: (The following items were deleted from the chart) 01/04 13:37 13:23 Allergies: No Known Allergies; [facility]
[2021-01-04 15:57] VITALS: BP 125/87; TEMP 97.7; O2SAT 99
== END 2021-01-04 15:40 | disposition home or self-care (01) ==
LOC: ER 13:03
DX: R19.7 Diarrhea, unspecified (principal); Z20.822 Contact with and (suspected) exposure to COVID-19; Z88.6 Allergy status to analgesic agent
CPT/HCPCS: 87804; 99281; U0003

== ENCOUNTER 2021-02-02 21:00 | Emergency (ER) | payer SELFPAY ==
--- OUTSIDE RECORDS SUMMARY | 2021-02-02 21:02 | XMS REPORT | Continuity of Care Document ---
:1985 Author Organization [facility] t Address [address] [place] [address] Care Team Providers Name Role Phone Zaire OBREGON Attending Clinician Anson RN, S Attending Clinician Unavailable Doctor Unassigned, Name Attending Clinician Unavailable Jake Nails DO Attending Clinician Anaid AGUILARP Attending Clinician Xiomara AGUILARP, F Attending Clinician Alayna GLASS CUT OFF SUPERVISOR, B Attending Clinician Problems This patient has no known problems. Allergies, Adverse Reactions, Alerts This patient has no known allergies or adverse reactions. Medications This patient has no known medications. Procedures This patient has no known procedures. Encounters Start End Encounter Admission Attending Care Care Encounter Source Date/Time Date/Time Type Type Clinicians Facility Department ID 2021-01-22 2021-01-22 Emergency Zaire [facility] [id number] 20:36:00 22:45:00 [place] Derek [id number] [place] [id number] [place] [id number] 2021-01-22 2021-01-22 Nurse DAVID Griggs [id number] 00:00:00 00:00:00 Triage Isabelle LUNA [id number] [facility] [id number] 2021-01-22 2021-01-22 Orders Doctor DAVID [id number] 00:00:00 00:00:00 Only Unassigned, CHERYL [id number] [place] [facility] [id number] 2021-01-08 2021-01-08 Emergency [facility] [id number] 11:45:00 13:10:00 Joyce Jake Reed [id number] [place] [id number] [place] [id number] 2021-01-06 2021-01-06 [facility] [id number] 00:28:00 03:00:00 Bar Reed [id number] [place] [id number] [place] [id number] 2020-12-31 2020-12-31 [facility] [id number] 18:26:00 21:47:00 Aimee Reed [id number] [place] [id number] [place] [id number] 2020-12-09 2020-12-10 Emergency [place], [facility] [id number] 20:42:00 01:58:00 Hammad Reed [id number] [place] [id number] [place] [id number] Results Test Description Test Time Test Comments Results Result [facility] e Comments CHEST 1 VIEW 2020-11-16 PORTABLE 18:30:00 [facility] : 1985 Sex: F [facility] [facility], [place] [id number] IMAGING REPORTPatient Name: DONNY SÁNCHEZ Aaronmarissa of Service: [id number]: 35 Sex: F Order #: [id number] Room: ERSDOB: 1985 X-Ray Number: [id number] Record Number: [id number] Hospital Number: [id number] Physician: Flavio JADE Physician: Eve WALKER: Chest APHistory: Shortness of breathComparison: No comparison availableFindings: No focal consolidation, pleural effusion or pneumothorax. Thecardiac and superior mediastinal silhouettes are within normal limits.Impression:No acute cardiopulmonary process.Electronicall y Signed By: Jesse Davalos M.D., 11/16/2020 6:28 PMLegally authenticated by MARYLU LOWE JR 2020-11-16 18:28:06 COVID SYMPTOMATIC ER ONLY 2020-11-16 17:45:00 Test Item Value Reference Range Interpretation Comme nts CORONAVIRUS (COVID-19)BY PCR (test code = TEX51AZO) NEGATIVE ISTAT [id number] 17:10:00 Test Item Value Reference Range Interpretation Comments ISTAT HCG (test <5.0 IU/L A value of l ess than or code = ISHCG) equal to <5 IU /L is considered NEGA TIVE A value between 5 IU/L and 25 IU/L is cons idered INDETERMINATE A value of >25 IU/L is con sidered POSITIVE ANKLE 3 [id number] 04:24:00 [facility] : 1985 [facility] [place], [place] [id number] IMAGING REPORTPatient Name: DONNY SÁNCHEZ IDate of Service: [id number]: 35 Sex: F Order #: [id number] [facility] 1985 [facility] Number: [id number] Record Number: [id number] Hospital Number: [id number] Physician: Flavio JADE Physician: HAILE JADEPROEDINURE: ANKLE 3 VIEWSINDICATIONS: Dx: ankle injury pt sts: pt reports falling and twisting herleft anklenohapsv:lsrshielded3 views left ankleComparison: NoneFindings:No fractures or dislocations.There is a small ankle joint effusion.No significant arthritic change. No radiopaque foreign b olesya.Impression:1. No acute bony abnormality involving the left ankle. A small jointeffusion is present.This document has been electronically signed by: Sebastian Rutledge MD on10/08/2020 04:23:50Legally authenticated by NAZIA Kaplan 2020-10-08 02:56:00
[2021-02-03] MEDS ORDERED: dexAMETHasone 10 MG/ML VIAL ONE (00:05)
[2021-02-03] MEDS ORDERED: LEVALBUTEROL 1.25 MG/3 ML NEB ONE (00:06)
--- NOTE | 2021-02-03 01:14 | ER ---
Nurse's Notes [facility] Name: Dionna Pack Age: 35 yrs Sex: Female : 1985 Arrival Date: 02/02/2021 Time: 21:04 Bed 11 Private MD: Diagnosis: Contact with and (suspected) exposure to hazardous, chiefly nonmedicinal, chemicals Presentation: 02/02 21:14 Chief complaint: Patient states: Pt stated, " I was cleaning the bathroom with bleach kg and it splashed into my face and now I'm having difficulty breathing." This happened at 20:00 Pt denies any vision problems. Coronavirus screen: Client denies travel out of the [place] in the last 14 days. At this time, unable to obtain information related to travel outside the [place] Client presents with at least one sign or symptom that may indicate coronavirus-19. Standard/surgical mask placed on the client. Provider contacted for isolation considerations. Ebola Screen: Patient negative for fever greater than or equal to 101.5 degrees Fahrenheit, and additional compatible Ebola Virus Disease symptoms Patient denies exposure to infectious person. Patient denies travel to an Ebola-affected area in the 21 days before illness onset. No symptoms or risks identified at this time. Initial Sepsis Screen: Does the patient meet any 2 criteria? No. Patient's initial sepsis screen is negative. Does the patient have a suspected source of infection? No. Patient's initial sepsis screen is negative. Risk Assessment: Do you want to hurt yourself or someone else? Patient reports no desire to harm self or others. Onset of symptoms was February 02, 2021 at 20:00. 21:14 Method Of Arrival: Ambulatory kg 21:14 Acuity: CORTES 4 kg Triage Assessment: 21:18 General: Appears in no apparent distress. Behavior is calm, cooperative, appropriate kg for age, quiet. Pain: Complains of pain in anterior aspect of right upper chest, anterior aspect of left upper chest and mid-sternal area Pain currently is 9 out of 10 on a pain scale. at worst was 9 out of 10 on a pain scale. level that patient reports is acceptable is 3 out of 10 on a pain scale. Respiratory: Reports cough that is non-productive, pain with cough pain with movement Pain is 9 out of 10 on a pain scale. pain with respiration Pain is 9 out of 10 on a pain scale. Onset: The symptoms/episode began/occurred just prior to arrival, the patient has mild shortness of breath. PEDIATRIC DIETICIAN: 21:18 LMP 01/10/2021 kg Historical: - Allergies: 21:18 None; kg - Home Meds: 21:18 None [Active]; kg - PMHx: 21:18 Asthma; kg - PSHx: 21:18 ; Ligation of fallopian tube; kg - Immunization history:: Adult Immunizations up to date, Client reports receiving the Adin \\T\\ Adin single-dose vaccine. Date received January 04, 2021. - Social history:: Smoking status: Patient denies any tobacco usage or history of. Patient uses alcohol, occasionally. Screenin:57 Abuse screen: Denies threats or abuse. Denies injuries from another. Nutritional zb screening: No deficits noted. Tuberculosis screening: No symptoms or risk factors identified. Fall Risk None identified. Assessment: 22:50 Reassessment: patient clarified that bleach didn't splash on her face. she inhaled the zb fumes while she was cleaning and she was unable to breathe due to the fume being so strong. 22:56 General: Appears in no apparent distress. comfortable, Behavior is calm, cooperative, zb appropriate for age. Pain: Denies pain. Neuro: Level of Consciousness is awake, alert, obeys commands, Oriented to person, place, time, situation, Moves all extremities. Full function Reports dizziness. Cardiovascular: Patient's skin is warm and dry. Rhythm is regular. Respiratory: Reports cough that is non-productive, hacking, persistent since today Airway is patent Respiratory effort is even, unlabored, Respiratory pattern is regular, symmetrical, the patient has mild shortness of breath. GI: Patient currently denies nausea, vomiting. Derm: Skin is intact, is healthy with good turgor, Skin is dry, Skin is normal, Skin temperature is warm. Musculoskeletal: Range of motion: intact in all extremities. 02/03 01:13 Reassessment: Patient appears in no apparent distress at this time. Patient and/or em family updated on plan of care and expected duration. Pain level reassessed. Patient is alert, oriented x 3, equal unlabored respirations, skin warm/dry/pink. Patient states feeling better. Vital Signs: 02/02 21:14 Pulse 83; Resp 20; Temp 98.3(TE); Pulse Ox 99% on R/A; Weight 65.77 kg (R); Height 5 kg ft. 0 in. (152.40 cm) (R); Pain 9/10; 22:57 BP 129 / 75; em 21:14 Body Mass Index 28.32 (65.77 kg, 152.40 cm) kg ED Course: 21:04 Patient arrived in ED. bp1 21:18 Triage completed. kg 21:18 Arm band placed on left wrist. kg 22:01 Oracio Gomze PA is PHCP. jmm 22:01 Cachorro Lewis MD is Attending Physician. [facility] 22:38 Albina Menjivar RN is Primary Nurse. zb 22:58 Patient has correct armband on for positive identification. Pulse ox on. NIBP on. Door zb closed. Noise minimized. 02/03 01:21 No provider procedures requiring assistance completed. Patient did not have IV access em during this emergency room visit. Administered Medications: 02/02 12:45 Drug: Xopenex (levalbuterol) (3) 1.25 mg Route: Inhalation; zb 02/03 00:13 Follow up: Response: No adverse reaction zb 02/02 22:45 Drug: Decadron (dexamethasone) 10 mg Route: IM; Site: left deltoid; zb 02/03 00:13 Follow up: Response: No adverse reaction zb Outcome: 01:13 Discharge ordered by . [facility] 01:21 Discharged to home ambulatory. em 01:21 Condition: improved 01:21 Discharge instructions given to patient, Instructed on discharge instructions, follow up and referral plans. medication usage, Demonstrated understanding of instructions, follow-up care, medications, Prescriptions given X 2. 01:21 Patient left the ED. em Signatures: Oracio Gomez PA PA jmm Munoz, Edgar, RN SONAL em Macarena Guaman bp1 Albina Menjivar RN RN zb Aida Gomez RN RN kg
--- NOTE | 2021-02-03 01:14 | EDPHYS ---
Physician Documentation [facility] Name: Dionna Pack Age: 35 yrs Sex: Female : 1985 Arrival Date: 02/02/2021 Time: 21:04 Bed 11 Private MD: ED Physician Cachorro Lewis HPI: 02/02 23:19 This 35 yrs old Female presents to ER via Ambulatory with complaints of jmm Breathing Difficulty. 23:19 The patient has shortness of breath at rest. Onset: The symptoms/episode began/occurred jmm acutely, just prior to arrival. Duration: The symptoms are continuous. The patient's shortness of breath is aggravated by nothing, is alleviated by nothing. Associated signs and symptoms: Pertinent negatives: fever. 35-year-old female with a history of asthma the presents emerged department with complaints of shortness of breath which occurred after a chemical exposure. Patient states she was cleaning with bleach.. ON CALL: 21:18 LMP 01/10/2021 kg Historical: - Allergies: 21:18 None; kg - Home Meds: 21:18 None [Active]; kg - PMHx: 21:18 Asthma; kg - PSHx: 21:18 ; Ligation of fallopian tube; kg - Immunization history:: Adult Immunizations up to date, Client reports receiving the Adin \T\ Adin single-dose vaccine. Date received January 04, 2021. - Social history:: Smoking status: Patient denies any tobacco usage or history of. Patient uses alcohol, occasionally. ROS: 23:19 Constitutional: Negative for fever, chills, and weight loss, Cardiovascular: Negative jmm for chest pain, palpitations, and edema. 23:19 Respiratory: Positive for cough. 23:19 All other systems are negative. Exam: 23:19 Constitutional: This is a well developed, well nourished patient who is awake, alert, jmm and in no acute distress. Head/Face: atraumatic. Eyes: EOMI, no conjunctival erythema appreciated ENT: Moist Mucus Membranes Neck: Trachea midline, Supple Chest/axilla: Normal chest wall appearance and motion. Cardiovascular: Regular rate and rhythm. No edema appreciated 23:19 Abdomen/GI: Non distended, soft Back: Normal ROM Skin: General appearance color normal MS/ Extremity: Moves all extremities, no obvious deformities appreciated, no edema noted to the lower extremities Neuro: Awake and alert, normal gait Psych: Behavior is normal, Mood is normal, Patient is cooperative and pleasant 23:19 Respiratory: the patient does not display signs of respiratory distress, Respirations: normal, Breath sounds: wheezing: that is mild, is scattered. Vital Signs: 21:14 Pulse 83; Resp 20; Temp 98.3(TE); Pulse Ox 99% on R/A; Weight 65.77 kg (R); Height 5 kg ft. 0 in. (152.40 cm) (R); Pain 9/10; 22:57 BP 129 / 75; em 21:14 Body Mass Index 28.32 (65.77 kg, 152.40 cm) kg MDM: 23:19 Patient medically screened. [facility] 02/03 01:11 Data reviewed: vital signs, nurses notes. Counseling: I had a detailed discussion with charbel the patient and/or guardian regarding: the historical points, exam findings, and any diagnostic results supporting the discharge/admit diagnosis, the need for outpatient follow up, to return to the emergency department if symptoms worsen or persist or if there are any questions or concerns that arise at home. ED course: Patient states feeling much better after lisinopril and steroids. Patient will be prescribed home steroids and albuterol for home and is otherwise given strict return precautions. Patient understood and agrees plan of care. Administered Medications: 02/02 12:45 Drug: Xopenex (levalbuterol) (3) 1.25 mg Route: Inhalation; 02/03 00:13 Follow up: Response: No adverse reaction 02/02 22:45 Drug: Decadron (dexamethasone) 10 mg Route: IM; Site: left deltoid; 02/03 00:13 Follow up: Response: No adverse reaction Disposition: 03:19 Co-signature as Attending Physician, Cachorro Lewis MD. [email or web address] Disposition Summary: 02/03/21 01:13 Discharge Ordered Location: Home [facility] Condition: Stable [facility] Diagnosis - Contact with and (suspected) exposure to hazardous, chiefly nonmedicinal, chemicals [facility] Followup: [facility] - With: Private Physician - When: 2 - 3 days - Reason: Recheck today's complaints, Continuance of care, Re-evaluation by your physician Discharge Instructions: - Discharge Summary Sheet [facility] - Chemical Inhalation Injury, Adult [facility] Forms: - Medication Reconciliation Form [facility] - Thank You Letter [facility] - Antibiotic Education [facility] - Prescription Opioid Use [facility] Prescriptions: - albuterol sulfate 90 mcg/actuation Inhalation HFA aerosol inhaler - inhale 2 puff by INHALATION route every 4 hours; 1 Pump; Refills: 0, Product [facility] Selection Permitted - Prednisone 20 mg Oral Tablet - take 3 tablets by ORAL route once daily for 5 days; 15 tablet; Refills: 0, [facility] Product Selection Permitted Signatures: Oracio Gomez PA PA jmm Holmes, Maurice, MD MD mh7 Albina Menjivar RN RN Aida Pierre RN RN kg
[2021-02-03 01:28] VITALS: TEMP 98.3; O2SAT 99
[2021-02-03 01:29] VITALS: BP 129/75
== END 2021-02-03 01:21 | disposition home or self-care (01) ==
LOC: ER 21:00
DX: R05 Cough (principal); Z77.098 Contact with and (suspected) exposure to other hazardous, chiefly nonmedicinal, chemicals
CPT/HCPCS: 96372; 99284

== ENCOUNTER 2021-03-14 16:37 | Emergency (ER) | payer SELFPAY ==
[2021-03-14 17:46] LABS: Urine Blood Trace-intact (Negative); Urine Glucose Negative (Negative); Urine Protein Negative (Negative); Urine Specific Gravity 1.025 (1.005-1.030)
[2021-03-14 19:21] LABS: Absolute Lymphocytes (CBC) 2.6 K/uL (0.7-4.9); Basophils % 0.3 % (0-1.3); Lymphocytes % 20.3 % (15.3-44.8); MPV 8.4 fL (7.6-11.3); RBC Red Blood Cell Count 4.56 M/uL (3.86-4.86)
[2021-03-14] MEDS ORDERED: ONDANSETRON 4 MG/2 ML VIAL ONE ×2 (19:22→20:44)
[2021-03-14] MEDS ORDERED: MORPHINE 4 MG/ML SYR ONE (19:22)
[2021-03-14 19:52] LABS: Urine Specific Gravity/Preg 1.025 (1.005-1.030)
[2021-03-14 20:07] LABS: BUN Blood Urea Nitrogen 17 mg/dL (7-18); Bicarbonate 28 mmol/L (21-32); Glucose Level 93 mg/dL (74-106); Potassium 3.5 mmol/L (3.5-5.1); Sodium Level 142 mmol/L (136-145)
[2021-03-14 20:12] LABS: HCG, Quantitative < 1 mIU/mL (1-3)
[2021-03-14] MEDS ORDERED: MECLIZINE HCL 12.5 MG TAB ONE (20:43)
[2021-03-14] MEDS ORDERED: NA CHLORIDE 0.9% 1,000 ML ONE (20:44)
--- NOTE | 2021-03-14 21:18 | RAD REPORT ---
EXAM DESCRIPTION: CTAbdomen Pelvis W Contrast - 03/14/2021 9:04 pm CLINICAL HISTORY: Abdominal pain. ABD PAIN COMPARISON: CT ABD PELVIS W CONTRAST dated 06/28/2012; CT ABD PELVIS W CONTRAST dated 01/17/2012 TECHNIQUE: Biphasic CT imaging of the abdomen and pelvis was performed with 100 ml non-ionic IV cont rast. All CT scans are performed using dose optimization technique as appropriate and may include automated exposure control or mA/KV adjustment according to patient size. FINDINGS: The lung bases are clear. The liver, spleen, pancreas, adrenal glands and kidneys are within normal limits. No bowel obstruction, free air, free fluid or abscess. Small fat containing umbilical hernia. The josefina endix is normal. Mild sigmoid diverticulosis coli without diverticulitis. No evidence of significant lymphadenopathy. No suspicious bony findings. IMPRESSION: No acute intra-abdominal or pelvic finding.
--- NOTE | 2021-03-14 22:01 | ER ---
Nurse's Notes [facility] Name: Dionna Pack Age: 35 yrs Sex: Female : 1985 Arrival Date: 03/14/2021 Time: 16:37 Bed 27 Private MD: Diagnosis: Abdominal pain. Dizziness Presentation: 03/14 17:24 Chief complaint: Patient states: Headache, abdomina pain, dizziness, nausea starting kg yesterday. Coronavirus screen: Vaccine status: Patient reports receiving the 1st dose of the Covid vaccine. Date January 24, 2021 Adin \T\ Adin. Coronavirus screen: headache. Ebola Screen: Patient negative for fever greater than or equal to 101.5 degrees Fahrenheit, and additional compatible Ebola Virus Disease symptoms Patient denies exposure to infectious person. Patient denies travel to an Ebola-affected area in the 21 days before illness onset. Initial Sepsis Screen: Does the patient meet any 2 criteria? No. Patient's initial sepsis screen is negative. Does the patient have a suspected source of infection? No. Patient's initial sepsis screen is negative. Risk Assessment: Do you want to hurt yourself or someone else? Patient reports no desire to harm self or others. Onset of symptoms was March 13, 2021. 17:24 Method Of Arrival: Ambulatory kg 17:24 Acuity: CORTES 3 kg Triage Assessment: 17:29 Headache History: Denies prior headaches. General: Appears in no apparent distress. kg Behavior is calm, cooperative, appropriate for age, quiet. Pain: Complains of pain in head, abdomen Pain currently is 10 out of 10 on a pain scale. at worst was 10 out of 10 on a pain scale. level that patient reports is acceptable is 3 out of 10 on a pain scale. Quality of pain is described as pulsating, Pain began 1 day ago. Also complains of nausea, shortness of breath. Neuro: Reports dizziness, headache in left weakness. 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 - Social history:: Smoking status: Patient denies any tobacco usage or history of. Patient uses alcohol, occasionally. Screenin:54 Abuse screen: Denies threats or abuse. Nutritional screening: No deficits noted. kh1 Tuberculosis screening: No symptoms or risk factors identified. Fall Risk None identified. No fall in past 12 months (0 pts). No secondary diagnosis (0 pts). No IV (0 pts). Ambulatory Aid- None/Bed Rest/Nurse Assist (0 pts). Gait- Normal/Bed Rest/Wheelchair (0 pts) Mental Status- Oriented to own ability (0 pts). Assessment: 17:52 General: Appears in no apparent distress. comfortable, Behavior is calm, cooperative, kh1 appropriate for age. Pain: Complains of pain in abdomen Pain radiates to back Pain currently is 10 out of 10 on a pain scale. Quality of pain is described as sharp, Pain began weeks ago. Neuro: No deficits noted. Level of Consciousness is awake, alert, obeys commands, Oriented to person, place, time, situation, Reports dizziness, headache frontal area. Cardiovascular: No deficits noted. Respiratory: No deficits noted. Reports Airway is patent Respiratory effort is even, unlabored, Respiratory pattern is regular. 19:26 General: Appears in no apparent distress. well groomed, Behavior is calm, cooperative. dc2 Pain: Complains of pain in lower right and left abdominal pain since yesterday , states it comes and goes with PRS 10/10. Co generalized headache that started with the abdominal pain PRS 10/10 . Neuro: No deficits noted. 19:26 : No deficits noted. dc2 19:26 GI: Reports lower abdominal pain, upper abdominal pain, nausea, Reports last BM was dc2 this morning and normal. Vital Signs: 17:24 Pulse 90; Resp 20; Temp 98.2(TE); Pulse Ox 100% on R/A; Weight 81.65 kg (R); Height 5 kg ft. 0 in. (152.40 cm) (R); Pain 10/10; 17:24 BP 135 / 105 RA Sitting (auto/); kg 19:25 BP 128 / 85; Pulse 87; Resp 18; Temp 97.5; Weight 45.36 kg; Pain 10/10; dc2 20:34 BP 117 / 73; Pulse 75; Resp 17; Pulse Ox 100% on R/A; dc2 21:00 BP 130 / 81; Pulse 102; Resp 18; Pulse Ox 99% ; Pain 0/10; dc2 19:25 Body Mass Index 19.53 (45.36 kg, 152.40 cm) dc2 ED Course: 16:37 Patient arrived in ED. ds1 17:29 Triage completed. kg 17:29 Arm band placed on left wrist. kg 17:52 Golden Weller MD is Attending Physician. kdr 17:52 Cara Sparks is Primary Nurse. kh1 18:28 Urine --Ancillary (enter results) Sent. kh1 19:03 Initial lab(s) drawn, by sc, sent to lab. Inserted saline lock: 20 gauge in right vg1 antecubital area, using aseptic technique. Blood collected. 19:05 Abo/rh Typing Sent. vg1 19:05 Basic Metabolic Panel Sent. vg1 19:05 CBC with Diff Sent. vg1 19:05 Quantitative Hcg Sent. vg1 19:45 Attending Physician role handed off by Golden Weller MD pkl 19:45 Jeffery Fish MD is Attending Physician. pkl 19:52 ED physician to see patient. dc2 20:00 Patient has correct armband on for positive identification. Bed in low position. Call dc2 light in reach. Side rails up X 1. 20:[address] via wheelchair. dc2 20:56 CT Abd/Pelvis - IV Contrast Only Sent. dc2 21:03 CT Abd/Pelvis - IV Contrast Only In Process Unspecified. EDMS 21:13 Patient moved back from CT. dc2 22:20 No provider procedures requiring assistance completed. IV discontinued, intact, dc2 bleeding controlled, No redness/swelling at site. Pressure dressing applied. Administered Medications: 20:24 Drug: Zofran (Ondansetron) 4 mg Route: IVP; Site: right antecubital; dc2 21:30 Follow up: Response: Nausea is decreased dc2 21:30 Follow up: Response: Nausea is decreased dc2 20:25 Drug: NS 0.9% 1000 ml Route: IV; Rate: 1000 ml; Infused Over: 1 hrs; Site: right dc2 antecubital; Delivery: Primary tubing; 21:20 Follow up: IV Status: Completed infusion; IV Intake: 1000ml dc2 20:25 Drug: Antivert (meclizine) 25 mg Route: PO; dc2 21:20 Follow up: Response: Marked relief of symptoms dc2 Intake: 21:20 IV: 1000ml; Total: 1000ml. dc2 Outcome: 21:59 Discharge ordered by . enzo 22:18 Discharge instructions given to patient, Instructed on discharge instructions, follow dc2 up and referral plans. Demonstrated understanding of instructions. 22:29 Discharged to home ambulatory. dc2 22:29 Condition: stable 22:32 Patient left the ED. dc2 Signatures: Dispatcher [employer] EDMS Jeffery Fish MD MD pkl Rittger, Kevin, MD MD kdr Sanford, Gin ds1 Willow Vela RN RN vg1 Aida Gomez RN RN kg Cara Sparks 1 Keri Matthews RN RN dc2 Corrections: (The following items were deleted from the chart) 17:31 17:29 Home Meds: None; kg kg 17:31 17:29 PSHx: Ligation of fallopian tube; kg kg
--- NOTE | 2021-03-14 22:01 | EDPHYS ---
Physician Documentation [facility] Name: Dionna Pack Age: 35 yrs Sex: Female : 1985 Arrival Date: 03/14/2021 Time: 16:37 Bed 27 Private MD: ED Physician Jeffery Fish HPI: 03/14 18:52 This 35 yrs old Female presents to ER via Ambulatory with complaints of kdr Headache, Dizziness. 18:52 Patient states that for the past couple of days she has had intermittent shortness of kdr breath and dizziness. She indicated that she initially gets short of breath and then the dizziness develops after that. She had similar symptoms when she was initially diagnosed with 2 prior pregnancies. She has no other related symptoms. She is otherwise stable. She does not appear toxic or in any way emergently ill at this time. Onset: The symptoms/episode began/occurred gradually, 2 day(s) ago. Severity of symptoms: At their worst the symptoms were mild in the emergency department the symptoms are unchanged. The patient has experienced similar episodes in the past, several times, When diagnosed with prior pregnancies. The patient has not recently seen a physician. 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 - Social history:: Smoking status: Patient denies any tobacco usage or history of. Patient uses alcohol, occasionally. ROS: 18:52 Constitutional: Negative for fever, chills, and weight loss, Eyes: Negative for injury, kdr pain, redness, and discharge, ENT: Negative for injury, pain, and discharge, Neck: Negative for injury, pain, and swelling, Cardiovascular: Negative for chest pain, palpitations, and edema, Abdomen/GI: Negative for abdominal pain, nausea, vomiting, diarrhea, and constipation, Back: Negative for injury and pain, : Negative for injury, bleeding, discharge, and swelling, MS/Extremity: Negative for injury and deformity, Skin: Negative for injury, rash, and discoloration, Psych: Negative for depression, anxiety, suicide ideation, homicidal ideation, and hallucinations, Allergy/Immunology: Negative for hives, rash, and allergies, Endocrine: Negative for neck swelling, polydipsia, polyuria, polyphagia, and marked weight changes, Hematologic/Lymphatic: Negative for swollen nodes, abnormal bleeding, and unusual bruising. 18:52 Respiratory: Positive for shortness of breath, at rest. Transient, Negative for cough, dyspnea on exertion, hemoptysis, orthopnea, pleurisy, sputum production, wheezing. 18:52 Neuro: Positive for dizziness. Exam: 18:52 Constitutional: This is a well developed, well nourished patient who is awake, alert, kdr and in no acute distress. Head/Face: Normocephalic, atraumatic. Eyes: Pupils equal round and reactive to light, extra-ocular motions intact. Lids and lashes normal. Conjunctiva and sclera are non-icteric and not injected. Cornea within normal limits. Periorbital areas with no swelling, redness, or edema. Neck: Trachea midline, no thyromegaly or masses palpated, and no cervical lymphadenopathy. Supple, full range of motion without nuchal rigidity, or vertebral point tenderness. No Meningismus. Chest/axilla: Normal chest wall appearance and motion. Nontender with no deformity. No lesions are appreciated. Cardiovascular: Regular rate and rhythm with a normal S1 and S2. No gallops, murmurs, or rubs. Normal PMI, no JVD. No pulse deficits. Respiratory: Lungs have equal breath sounds bilaterally, clear to auscultation and percussion. No rales, rhonchi or wheezes noted. No increased work of breathing, no retractions or nasal flaring. Abdomen/GI: Soft, non-tender, with normal bowel sounds. No distension or tympany. No guarding or rebound. No evidence of tenderness throughout. Back: No spinal tenderness. No costovertebral tenderness. Full range of motion. Skin: Warm, dry with normal turgor. Normal color with no rashes, no lesions, and no evidence of cellulitis. MS/ Extremity: Pulses equal, no cyanosis. Neurovascular intact. Full, normal range of motion. Neuro: Awake and alert, GCS 15, oriented to person, place, time, and situation. Cranial nerves II-XII grossly intact. Motor strength 5/5 in all extremities. Sensory grossly intact. Cerebellar exam normal. Normal gait. Psych: Awake, alert, with orientation to person, place and time. Behavior, mood, and affect are within normal limits. Vital Signs: 17:24 Pulse 90; Resp 20; Temp 98.2(TE); Pulse Ox 100% on R/A; Weight 81.65 kg (R); Height 5 kg ft. 0 in. (152.40 cm) (R); Pain 10/10; 17:24 BP 135 / 105 RA Sitting (auto/); kg 19:25 BP 128 / 85; Pulse 87; Resp 18; Temp 97.5; Weight 45.36 kg; Pain 10/10; dc2 20:34 BP 117 / 73; Pulse 75; Resp 17; Pulse Ox 100% on R/A; dc2 21:00 BP 130 / 81; Pulse 102; Resp 18; Pulse Ox 99% ; Pain 0/10; dc2 19:25 Body Mass Index 19.53 (45.36 kg, 152.40 cm) dc2 MDM: 19:45 Patient medically screened. pkl 21:56 Data reviewed: vital signs, nurses notes, lab test result(s), radiologic studies, CT pkl scan. ED course: Patient feeling better. Asymptomatic. ED course: Advised to follow with her PCP in 2 to 3 days. To return if necessary. Patient understood instructions. 03/14 17:46 Order name: Urine Dipstick-Ancillary; Complete Time: 19:46 EDME 03/14 17:48 Order name: Urine --Ancillary (enter results); Complete Time: 19:54 bd 03/14 18:51 Order name: Abo/rh Typing; Complete Time: 19:46 kdr 03/14 18:51 Order name: Basic Metabolic Panel; Complete Time: 20:19 kdr 03/14 18:51 Order name: CBC with Diff; Complete Time: 19:54 kdr 03/14 18:51 Order name: Quantitative Hcg; Complete Time: 20:19 kdr 03/14 17:47 Order name: Urine Dipstick-Ancillary (obtain specimen); Complete Time: 17:47 kh1 03/14 18:51 Order name: IV Saline Lock; Complete Time: 19:03 kdr 03/14 18:51 Order name: Labs collected and sent; Complete Time: 19:03 [facility] 03/14 18:51 Order name: NPO; Complete Time: 19:03 kdr 03/14 20:20 Order name: CT Abd/Pelvis - IV Contrast Only; Complete Time: 21:52 pkl Administered Medications: 20:24 Drug: Zofran (Ondansetron) 4 mg Route: IVP; Site: right antecubital; dc2 21:30 Follow up: Response: Nausea is decreased dc2 21:30 Follow up: Response: Nausea is decreased dc2 20:25 Drug: NS 0.9% 1000 ml Route: IV; Rate: 1000 ml; Infused Over: 1 hrs; Site: right dc2 antecubital; Delivery: Primary tubing; 21:20 Follow up: IV Status: Completed infusion; IV Intake: 1000ml dc2 20:25 Drug: Antivert (meclizine) 25 mg Route: PO; dc2 21:20 Follow up: Response: Marked relief of symptoms dc2 Disposition Summary: 03/14/21 21:59 Discharge Ordered Location: Home pkl Problem: new pkl Symptoms: have improved pkl Condition: Stable pkl Diagnosis - Abdominal pain. Dizziness pkl Followup: pkl - With: Private Physician - When: 2 - 3 days - Reason: Re-evaluation by your physician Forms: - Medication Reconciliation Form pkl - Thank You Letter pkl - Antibiotic Education pkl - Prescription Opioid Use pkl Signatures: Dispatcher [employer] EDJeffery Perry MD MD pkl Golden Weller MD MD kdr Graham, Kristen, RN RN kg Cara Sparks [facility] Keri Matthews RN RN dc2 Corrections: (The following items were deleted from the chart) 17:31 17:29 Home Meds: None; kg kg 17:31 17:29 PSHx: Ligation of fallopian tube; kg kg
[2021-03-14 22:53] VITALS: TEMP 97.5
[2021-03-14 22:57] VITALS: BP 130/81; O2SAT 99
== END 2021-03-14 22:32 | disposition home or self-care (01) ==
LOC: ER 16:37
DX: R10.9 Unspecified abdominal pain (principal); J45.909 Unspecified asthma, uncomplicated
CPT/HCPCS: 36415; 74177; 80048; 81003; 81025; 84702; 85025; 86900; 86901; 96361; 96374; 99284; J2405; J7030; Q9967

== ENCOUNTER 2021-08-13 17:15 | Emergency (ER) | payer SELFPAY ==
--- OUTSIDE RECORDS SUMMARY | 2021-08-13 17:20 | XMS REPORT | Continuity of Care Document ---
:1985 Author Organization [facility] t Address [address] [place] [address] Care Team Providers Name Role Phone PCP, DOES NOT HAVE A Primary Care Physician Unavailable Juan Jose JONES Attending Clinician Unavailable Juan Jose Sebastian Attending Clinician Jake Bello DO Attending Clinician Jake BELLO Attending Clinician Unavailable Yasmin OBREGON Attending Clinician YASMIN Attending Clinician Unavailable Anson PRUITT, S Attending Clinician Unavailable Doctor Unassigned, Name Attending Clinician Unavailable Anaid OBREGON Attending Clinician Xiomara OBREGON, F Attending Clinician Mannie CASH Attending Clinician Unavailable Emanuel OBREGON B Attending Clinician Leona CASTELLANOS Attending Clinician Unavailable JADE Attending Clinician Unavailable JONES, R Admitting Clinician Unavailable HOFFMAN Admitting Clinician Unavailable JADE Admitting Clinician Unavailable Payers Payer Name Policy Type Policy Number Effective Date Expiration Date S kandice MEDICAID ALIEN PENDING 2021 PENDING 00:00:00 Problems Condition Condition Condition Status Onset Resolution Last Treating Co mments Source Name Details Category Date Date Treatment Clinician Date Contracept Contracept Disease Active U daniele spike spike 10-18 [place] [facility] Depo Depo Disease Active [facility] contracept contracept 10-18 it y of ion ion 00:00: [place] 00 [facility] History of History of Disease Active U daniele tubal tubal 10-18 ity of ligation ligation 00:00: [place] [facility] Heavy Heavy Disease Active Univers menses menses 10-18 ity of 00:00: [place] 00 Medical Branch Morbid Morbid Disease Active Univers obesity obesity 10-18 ity of 00:00: [place] [facility] Dysmenorrh Dysmenorrh Disease Active U rioers ea ea 10-18 ity of 00:00: [place] 00 Medical Branch Allergies, Adverse Reactions, Alerts Allergy Allergy Status Severity Reaction(s) Onset Inactive Treating Comm ents Source Name Type Date Date Clinician No known Miscella Active [facility] Allerg[facility] Allergy 02:53: l s 30 ([facility]) No known Miscella Active U Not [facility] drug neous Specified 4-25 Hospita Allergie Allergy 02:53: l s 30 ([facility]) No known Miscella Active U Not [facility] drug neous Specified 4-25 Hospita Allergie Allergy 02:53: l s 30 ([facility]) No known Miscella Active U Not 2020- [facility] Spec[facility] 4-25 [facility]ospita Allergie Allergy 02:53: l s 30 ([facility]) No known Miscella Active U Not 2020- [facility] Specified 4-25 [facility]ospita Allergie Allergy 02:53: l s 30 ([facility]) No known Miscella Active U Not 2020- [facility] drug [facility] Specified 4-25 Hospita Allergie Allergy 02:53: l s 30 ([facility]) No known Miscella Active U Not 2020- [facility] Specified 4-25 [facility]ospita Allergie Allergy 02:53: l s 30 ([facility]) No known Miscella Active U Not 2020- [facility] drug neous Specified 4-25 Hospita Allergie Allergy 02:53: l s 30 ([facility]) No known Miscella Active U Not 2020- [facility] drug [facility] Specified 4-25 [facility] Allergie Allergy 02:53: [facility] ([facility] No known Miscella Active U Not [facility] drug ne[facility] Specified 10-08 [facility]osp[facility] Allergie Allergy 02:53: [facility] ([facility] No Known NA Active [facility] Allergie 10-08 [facility]ospita s 02:53: l 22 ([facility]) NO KNOWN Drug Active Univers ALLERGIE Class ity of [facility] Social History Social Habit Start Date Stop Date Quantity Comments Source Exposure to Not sure [facility] SARS-CoV-2 (event) [facility] Alcohol intake 2021-06-22 2021-06-22 0 /d [facility] 00:00:00 00:00:00 [facility] Tobacco use and 2016-01-17 2016-01-17 Never used [facility] exposure 00:00:00 00:00:00 [facility] Sex [birth year] [facility] 00:00:00 00:00:00 [facility] Smoking Status Start Date Stop Date Source Never smoker [facility] Medications Ordered Filled Start Stop Current Ordering Indication Dosage Frequency Signature Comments Components Source Medication Medication Date Date Medication? Clinician (SIG) Name Name ibuprofen No 600mg 600 mg, Uni vers (IBU) 06-23 Oral, ity of tablet 600 00:15: 23:27 ONCE, 1 [place] mg 00 :00 dose, On Medical 06/22/21 Branch at 1815, ÁNGEL ibuprofen Yes [id number] 600mg Take 1 Univers 600 mg 06-22 [id number] tablet by ity of tablet 00:00: mouth [place] 00 every 6 Medical (six) Branch hours as needed for Pain (scale 4-6). ibuprofen 2020-06 No 600mg 600 mg, Uni vers (IBU) 07-20 Oral, ity of tablet 600 00:30: 23:25 ONCE, 1 [place] mg 00 :00 dose, On Medical Fri Branch 05/18/21 at 1830, ÁNGEL HYDROcodone 2020- No 1{tbl} 1 tablet, Univers -acetaminop 03-03-18 Oral, ity of hen (NORCO 23:30: 22:20 ONCE, 1 [place] 5) 5-325 mg 00 :00 dose, On Medi yevgeniy tablet 1 Sat Branch tablet 03/03/21 at 1830, ÁNGEL HYDROcodone 2020-2020- No 1{tbl} 1 tablet, Univers -acetaminop 03-03 Oral, ity of hen (NORCO 23:30: 22:20 ONCE, 1 [place] 5) 5-325 mg 00 :00 dose, On Medi yevgeniy tablet 1 Sat Branch tablet 03/03/21 at 1830, ÁNGEL ibuprofen 2020-2020- No 800mg 800 mg, Uni vers (IBU) 01-23- Oral, ity of tablet 800 04:30: 03:40 ONCE, 1 [place] mg 00 :00 dose, [facility] 01/22/21 at Branch 2330, ÁNGEL ibuprofen 2020-0 Yes [id number] 800mg Take 1 Univers 800 mg 8-09 tablet by ity of tablet 00:00: mouth [place] 00 every 8 Medical (eight) Branch hours as needed for Pain (scale 4-6). ibuprofen 2020-0 Yes [id number] 800mg Take 1 [facility] 800 mg 8-09 tablet by ity of tablet 00:00: mouth [place] 00 every 8 Medical (eight) Branch hours as needed for Pain (scale 4-6). ibuprofen 2020-0 Yes [id number] 800mg Take 1 [facility] 800 mg 8-09 tablet by ity of tablet 00:00: mouth [place] 00 every 8 Medical (eight) Branch hours as needed for Pain (scale 4-6). ibuprofen 2020-0 Yes [id number] 800mg Take 1 [facility] 800 mg 8-09 tablet by ity of tablet 00:00: mouth [place] 00 every 8 Medical (eight) Branch hours as needed for Pain (scale 4-6). ibuprofen 2020-0 Yes [id number] 800mg Take 1 Univers 800 mg 8-09 tablet by ity of tablet 00:00: mouth [place] 00 every 8 Medical (eight) Branch hours as needed for Pain (scale 4-6). acetaminoph 2020- No [id number] 1{tbl} Take 1 U nivers en-codeine 01-22 tablet by ity of 300-30 mg 00:00: 04:59 mouth [place] tablet 00 :00 every 6 Medical (six) Branch hours as needed for Pain (scale 7-10) for up to 7 days. Indication s: acute pain maalox:diph 2020- No 15mL 15 mL, Uni vers enhydrAMINE 01-08 Oral, ity of :lidocaine 18:00: 17:03 ONCE, 1 [place] 2 % viscous 00 :00 dose, [facility] ical 1:1:1 01/08/21 at [place] (FIRST-MOUT 1300, HWASH BLM) Routine oral suspension 15 mL famotidine 2020- No 20mg 20 mg, Univ ers (PEPCID 01-08 Slow IV ity of (PF)) 18:00: 16:59 Push, [place] injection 00 :00 ONCE, 1 Medical 20 mg dose, [facility] 01/08/21 at 1300, Routine metoclopram 2020- No 10mg 10 mg, Uni vers luke HCl 01-08 Slow IV ity of (REGLAN) 18:00: 16:59 Push, [place] injection 00 :00 ONCE, 1 Medical 10 mg dose, [facility] 01/08/21 at 1300, ÁNGEL NaCl 0.9% 2020- No 1000mL at 999 Uni vers (NS) bolus 01-08 mL/hr, ity of infusion 18:00: 18:06 1,000 mL, [place] 1,000 mL 00 :00 IV Medical Piggyback, [place] ONCE, 1 dose, [facility] 01/08/21 at 1300, STAT metoclopram 2020-0 Yes [id number] 10mg Take 1 Univers luke HCl 10 7-26 tablet by ity of mg tablet 00:00: mouth [place] 00 every 6 Medical (six) Branch hours as needed for Nausea and Vomiting (N/V). metoclopram 2020-0 Yes [id number] 10mg Take 1 Univers luke HCl 10 7-26 tablet by ity of mg tablet 00:00: mouth [place] 00 every 6 Medical (six) Branch hours as needed for Nausea and Vomiting (N/V). metoclopram 2020-0 Yes [id number] 10mg Take 1 Univers luke HCl 10 7-26 tablet by ity of mg tablet 00:00: mouth [place] 00 every 6 Medical (six) Branch hours as needed for Nausea and Vomiting (N/V). metoclopram 2020-0 Yes [id number] 10mg Take 1 Univers luke HCl 10 7-26 tablet by ity of mg tablet 00:00: mouth [place] 00 every 6 Medical (six) Branch hours as needed for Nausea and Vomiting (N/V). metoclopram 2020-0 Yes [id number] 10mg Take 1 Univers luke HCl 10 7-26 tablet by ity of mg tablet 00:00: mouth [place] 00 every 6 Medical (six) Branch hours as needed for Nausea and Vomiting (N/V). metoclopram 2020-0 Yes [id number] 10mg Take 1 Univers luke HCl 10 7-26 tablet by ity of mg tablet 00:00: mouth [place] 00 every 6 Medical (six) Branch hours as needed for Nausea and Vomiting (N/V). metoclopram 2020-0 Yes [id number] 10mg Take 1 Univers luke HCl 10 7-26 tablet by ity of mg tablet 00:00: mouth [place] 00 every 6 Medical (six) Branch hours as needed for Nausea and Vomiting (N/V). metoclopram 2020-0 Yes [id number] 10mg Take 1 Univers luke HCl 10 7-26 tablet by ity of mg tablet 00:00: mouth [place] 00 every 6 Medical (six) Branch hours as needed for Nausea and Vomiting (N/V). ondansetron 2020- No 4mg 4 mg, Univ ers (ZOFRAN-ODT 01-06-24 Oral, ity of ) 07:30: 06:42 ONCE, 1 [place] disintegrat 00 :00 dose, Sat Med ical ing tablet 01/06/21 at [facility] 4 mg 0230, Routine ondansetron 2020-0 Yes [id number] 4mg Take 1 Univers 4 mg 7-24 tablet by ity of disintegrat 00:00: mouth [place] ing tablet 00 every 12 Medic al (twelve) Branch hours as needed for Nausea and Vomiting (N/V). ondansetron 2020-0 Yes [id number] 4mg Take 1 Univers 4 mg 7-24 tablet by ity of disintegrat 00:00: mouth [place] ing tablet 00 every 12 Medic al (twelve) Branch hours as needed for Nausea and Vomiting (N/V). ondansetron 2020-0 Yes [id number] 4mg Take 1 Univers 4 mg 7-24 tablet by ity of disintegrat 00:00: mouth [place] ing tablet 00 every 12 Medic al (twelve) Branch hours as needed for Nausea and Vomiting (N/V). ondansetron 2020-0 Yes [id number] 4mg Take 1 Univers 4 mg 7-24 tablet by ity of disintegrat 00:00: mouth [place] ing tablet 00 every 12 Medic al (twelve) Branch hours as needed for Nausea and Vomiting (N/V). ondansetron 2020-0 Yes [id number] 4mg Take 1 Univers 4 mg 7-24 tablet by ity of disintegrat 00:00: mouth [place] ing tablet 00 every 12 Medic al (twelve) Branch hours as needed for Nausea and Vomiting (N/V). ondansetron 2020-0 Yes [id number] 4mg Take 1 Univers 4 mg 7-24 tablet by ity of disintegrat 00:00: mouth [place] ing tablet 00 every 12 Medic al (twelve) Branch hours as needed for Nausea and Vomiting (N/V). ondansetron 2020-0 Yes [id number] 4mg Take 1 Univers 4 mg 7-24 tablet by ity of disintegrat 00:00: mouth [place] ing tablet 00 every 12 Medic al (twelve) Branch hours as needed for Nausea and Vomiting (N/V). ondansetron 2020-0 Yes [id number] 4mg Take 1 Univers 4 mg 7-24 tablet by ity of disintegrat 00:00: mouth [place] ing tablet 00 every 12 Medic al (twelve) Branch hours as needed for Nausea and Vomiting (N/V). ondansetron 2020-0 Yes [id number] 4mg Take 1 Univers 4 mg 7-24 tablet by ity of disintegrat 00:00: mouth [place] ing tablet 00 every 12 Medic al (twelve) Branch hours as needed for Nausea and Vomiting (N/V). traMADoL 2020-0 2020- No 50mg 50 mg, Univer s (ULTRAM) 01-01- Oral, ity of tablet 50 01:45: 00:45 ONCE, 1 [place] mg 00 :00 dose, [facility] 12/31/20 at Branch 2044, Routine traMADoL 50 2020-0 Yes [id number] 50mg Take 1 Univ ers mg tablet 7-18 tablet by ity o f 00:00: mouth [place] 00 every 6 Medical (six) Branch hours as needed for Pain (scale 7-10). Indication s: acute pain traMADoL 50 1-0 Yes [id number] 50mg Take 1 Univ ers mg tablet 7-18 tablet by ity o f 00:00: mouth [place] 00 every 6 Medical (six) Branch hours as needed for Pain (scale 7-10). Indication s: acute pain traMADoL 50 1-0 Yes [id number] 50mg Take 1 Univ ers mg tablet 7-18 tablet by ity o f 00:00: mouth [place] 00 every 6 Medical (six) Branch hours as needed for Pain (scale 7-10). Indication s: acute pain traMADoL 50 1-0 Yes [id number] 50mg Take 1 Univ ers mg tablet 7-18 tablet by ity o f 00:00: mouth [place] 00 every 6 Medical (six) Branch hours as needed for Pain (scale 7-10). Indication s: acute pain traMADoL 50 2020-0 Yes [id number] 50mg Take 1 Univ ers mg tablet 7-18 tablet by ity o f 00:00: mouth [place] 00 every 6 Medical (six) Branch hours as needed for Pain (scale 7-10). Indication s: acute pain traMADoL 50 2020-0 Yes [id number] 50mg Take 1 Univ ers mg tablet 7-18 tablet by ity o f 00:00: mouth [place] 00 every 6 Medical (six) Branch hours as needed for Pain (scale 7-10). Indication s: acute pain traMADoL 50 1-0 Yes [id number] 50mg Take 1 Univ ers mg tablet 7-18 tablet by ity o f 00:00: mouth [place] 00 every 6 Medical (six) Branch hours as needed for Pain (scale 7-10). Indication s: acute pain traMADoL 50 1-0 Yes [id number] 50mg Take 1 Univ ers mg tablet 7-18 tablet by ity o f 00:00: mouth [place] 00 every 6 Medical (six) Branch hours as needed for Pain (scale 7-10). Indication s: acute pain traMADoL 50 1-0 Yes [id number] 50mg Take 1 Univ ers mg tablet 7-18 tablet by ity o f 00:00: mouth [place] 00 every 6 Medical (six) Branch hours as needed for Pain (scale 7-10). Indication s: acute pain traMADoL 50 1-0 Yes [id number] 50mg Take 1 Univ ers mg tablet 7-18 tablet by ity o f 00:00: mouth [place] 00 every 6 Medical (six) Branch hours as needed for Pain (scale 7-10). Indication s: acute pain diazePAM 2020- No 5mg 5 mg, Univers (VALIUM) 12-10 Intramuscu ity of injection 5 06:00: 05:24 lar, ONCE, [place] mg 00 :00 1 dose, Medical [place] [facility] 12/10/20 at 0100, STAT dexamethaso 2020- No 10mg 10 mg, Uni vers ne 12-10 Intramuscu ity of (DECADRON 06:00: 05:29 lar, ONCE, [place] PHOSPHATE) 00 :00 1 dose, Medica l injection Sun Branch 10 mg 12/10/20 at 0100, STAT ketorolac 2020- No 30mg 30 mg, Unive rs (TORADOL) 12-10 Intramuscu ity of injection 06:00: 05:26 lar, ONCE, [place] 30 mg 00 :00 1 dose, Medical [place] [facility] 12/10/20 at 0100, ÁNGEL
Fa culty member approving Restricted medication : SIMBA CAMPOS ibuprofen Yes [id number] 800mg Take 1 Univers 800 mg 6-27 tablet by ity of tablet 00:00: mouth [place] 00 every 8 Medical (eight) Branch hours as needed for Pain (scale 4-6). ibuprofen 0 Yes [id number] 800mg Take 1 Univers 800 mg 6-27 tablet by ity of tablet 00:00: mouth [place] 00 every 8 Medical (eight) Branch hours as needed for Pain (scale 4-6). ibuprofen 0 Yes [id number] 800mg Take 1 Univers 800 mg 6-27 tablet by ity of tablet 00:00: mouth [place] 00 every 8 Medical (eight) Branch hours as needed for Pain (scale 4-6). ibuprofen 0 Yes [id number] 800mg Take 1 Univers 800 mg 6-27 tablet by ity of tablet 00:00: mouth [place] 00 every 8 Medical (eight) Branch hours as needed for Pain (scale 4-6). ibuprofen 0 Yes [id number] 800mg Take 1 Univers 800 mg 6-27 tablet by ity of tablet 00:00: mouth [place] 00 every 8 Medical (eight) Branch hours as needed for Pain (scale 4-6). ibuprofen 0 Yes [id number] 800mg Take 1 Univers 800 mg 6-27 tablet by ity of tablet 00:00: mouth [place] 00 every 8 Medical (eight) Branch hours as needed for Pain (scale 4-6). ibuprofen 0 Yes [id number] 800mg Take 1 Univers 800 mg 6-27 tablet by ity of tablet 00:00: mouth [place] 00 every 8 Medical (eight) Branch hours as needed for Pain (scale 4-6). ibuprofen 0 Yes [id number] 800mg Take 1 Univers 800 mg 6-27 tablet by ity of tablet 00:00: mouth [place] 00 every 8 Medical (eight) Branch hours as needed for Pain (scale 4-6). ibuprofen 0 Yes [id number] 800mg Take 1 Univers 800 mg 6-27 tablet by ity of tablet 00:00: mouth [place] 00 every 8 Medical (eight) Branch hours as needed for Pain (scale 4-6). ibuprofen 0 Yes [id number] 800mg Take 1 Univers 800 mg 6-27 tablet by ity of tablet 00:00: mouth [place] 00 every 8 Medical (eight) Branch hours as needed for Pain (scale 4-6). ibuprofen 0 Yes [id number] 800mg Take 1 Univers 800 mg 6-27 tablet by ity of tablet 00:00: mouth [place] 00 every 8 Medical (eight) Branch hours as needed for Pain (scale 4-6). methocarbam 2020- No [id number] 750mg Take 1 Univers oL 6-27 -18 tablet by ity of (ROBAXIN-75 00:00: 04:59 mouth 4 [place] 0) 750 mg 00 :00 (four) Medical tablet times Branch daily as needed for Pain (scale 7-10) for up to 20 days. predniSONE 2020- No [id number] 60mg Take 3 Univers 20 mg 6-27 07-03 tablets by ity of tablet 00:00: 04:59 mouth [place] 00 :00 every Medical morning Branch for 5 days. traMADOL Yes 50mg Take 1 Tab Uni vers (ULTRAM) 50 9-01 by mouth ity of mg tablet 00:00: every 6 [place] 00 (six) Medical hours as Branch needed for Pain (scale 7-10). traMADOL 2015-0 Yes 50mg Take 1 Tab Uni vers (ULTRAM) 50 9-01 by mouth ity of mg tablet 00:00: every 6 [place] 00 (six) Medical hours as Branch needed for Pain (scale 7-10). traMADOL 2015-0 Yes 50mg Take 1 Tab Uni vers (ULTRAM) 50 9-01 by mouth ity of mg tablet 00:00: every 6 [place] 00 (six) Medical hours as Branch needed for Pain (scale 7-10). traMADOL 2015-0 Yes 50mg Take 1 Tab Uni vers (ULTRAM) 50 9-01 by mouth ity of mg tablet 00:00: every 6 [place] 00 (six) Medical hours as Branch needed for Pain (scale 7-10). traMADOL 2015-0 Yes 50mg Take 1 Tab Uni vers (ULTRAM) 50 9-01 by mouth ity of mg tablet 00:00: every 6 [place] 00 (six) Medical hours as Branch needed for Pain (scale 7-10). traMADOL 2015-0 Yes 50mg Take 1 Tab Uni vers (ULTRAM) 50 9-01 by mouth ity of mg tablet 00:00: every 6 [place] 00 (six) Medical hours as Branch needed for Pain (scale 7-10). traMADOL 2015-0 Yes 50mg Take 1 Tab Uni vers (ULTRAM) 50 9-01 by mouth ity of mg tablet 00:00: every 6 [place] 00 (six) Medical hours as Branch needed for Pain (scale 7-10). traMADOL 2015-0 Yes 50mg Take 1 Tab Uni vers (ULTRAM) 50 9-01 by mouth ity of mg tablet 00:00: every 6 [place] 00 (six) Medical hours as Branch needed for Pain (scale 7-10). traMADOL 2015-0 Yes 50mg Take 1 Tab Uni vers (ULTRAM) 50 9-01 by mouth ity of mg tablet 00:00: every 6 [place] 00 (six) Medical hours as Branch needed for Pain (scale 7-10). traMADOL 2015-0 Yes 50mg Take 1 Tab Uni vers (ULTRAM) 50 9-01 by mouth ity of mg tablet 00:00: every 6 [place] 00 (six) Medical hours as Branch needed for Pain (scale 7-10). traMADOL 2015-0 Yes 50mg Take 1 Tab Uni vers (ULTRAM) 50 9-01 by mouth ity of mg tablet 00:00: every 6 [place] 00 (six) Medical hours as Branch needed for Pain (scale 7-10). doxycycline 2015-0 Yes 100mg Take 1 Cap Univers (VIBRAMYCIN 7-05 by mouth 2 it y of ) 100 mg 00:00: (two) [place] capsule 00 times Medical daily. Branch doxycycline 2015-0 Yes 100mg Take 1 Cap Univers (VIBRAMYCIN 7-05 by mouth 2 it y of ) 100 mg 00:00: (two) [place] capsule 00 times Medical daily. Branch doxycycline 2015-0 Yes 100mg Take 1 Cap Univers (VIBRAMYCIN 7-05 by mouth 2 it y of ) 100 mg 00:00: (two) [place] capsule 00 times Medical daily. Branch doxycycline 2015-0 Yes 100mg Take 1 Cap Univers (VIBRAMYCIN 7-05 by mouth 2 it y of ) 100 mg 00:00: (two) [place] capsule 00 times Medical daily. Branch doxycycline 2015-0 Yes 100mg Take 1 Cap Univers (VIBRAMYCIN 7-05 by mouth 2 it y of ) 100 mg 00:00: (two) [place] capsule 00 times Medical daily. Branch doxycycline 2015-0 Yes 100mg Take 1 Cap Univers (VIBRAMYCIN 7-05 by mouth 2 it y of ) 100 mg 00:00: (two) [place] capsule 00 times Medical daily. Branch doxycycline 2015-0 Yes 100mg Take 1 Cap Univers (VIBRAMYCIN 7-05 by mouth 2 it y of ) 100 mg 00:00: (two) [place] capsule 00 times Medical daily. Branch doxycycline 2015-0 Yes 100mg Take 1 Cap Univers (VIBRAMYCIN 7-05 by mouth 2 it y of ) 100 mg 00:00: (two) [place] capsule 00 times Medical daily. Branch doxycycline 2015-0 Yes 100mg Take 1 Cap Univers (VIBRAMYCIN 7-05 by mouth 2 it y of ) 100 mg 00:00: (two) [place] capsule 00 times Medical daily. Branch doxycycline 2015-0 Yes 100mg Take 1 Cap Univers (VIBRAMYCIN 7-05 by mouth 2 it y of ) 100 mg 00:00: (two) [place] capsule 00 times Medical daily. Branch doxycycline 2015-0 Yes 100mg Take 1 Cap Univers (VIBRAMYCIN 7-05 by mouth 2 it y of ) 100 mg 00:00: (two) [place] capsule 00 times Medical daily. Branch hydrocodone Yes 1{tbl} Take 1-2 Univers -acetaminop 8-25 Tabs by ity o f hen (NORCO 00:00: mouth [place] 5) 5-325 mg 00 every 6 Medic al tablet (six) Branch hours as needed for Pain. hydrocodone Yes 1{tbl} Take 1-2 Univers -acetaminop 8-25 Tabs by ity o f hen (NORCO 00:00: mouth [place] 5) 5-325 mg 00 every 6 Medic al tablet (six) Branch hours as needed for Pain. hydrocodone Yes 1{tbl} Take 1-2 Univers -acetaminop 8-25 Tabs by ity o f hen (NORCO 00:00: mouth [place] 5) 5-325 mg 00 every 6 Medic al tablet (six) Branch hours as needed for Pain. hydrocodone Yes 1{tbl} Take 1-2 Univers -acetaminop 8-25 Tabs by ity o f hen (NORCO 00:00: mouth [place] 5) 5-325 mg 00 every 6 Medic al tablet (six) Branch hours as needed for Pain. hydrocodone Yes 1{tbl} Take 1-2 Univers -acetaminop 8-25 Tabs by ity o f hen (NORCO 00:00: mouth [place] 5) 5-325 mg 00 every 6 Medic al tablet (six) Branch hours as needed for Pain. hydrocodone Yes 1{tbl} Take 1-2 Univers -acetaminop 8-25 Tabs by ity o f hen (NORCO 00:00: mouth [place] 5) 5-325 mg 00 every 6 Medic al tablet (six) Branch hours as needed for Pain. hydrocodone Yes 1{tbl} Take 1-2 Univers -acetaminop 8-25 Tabs by ity o f hen (NORCO 00:00: mouth [place] 5) 5-325 mg 00 every 6 Medic al tablet (six) Branch hours as needed for Pain. hydrocodone Yes 1{tbl} Take 1-2 Univers -acetaminop 8-25 Tabs by ity o f hen (NORCO 00:00: mouth [place] 5) 5-325 mg 00 every 6 Medic al tablet (six) Branch hours as needed for Pain. hydrocodone Yes 1{tbl} Take 1-2 Univers -acetaminop 8-25 Tabs by ity o f hen (NORCO 00:00: mouth [place] 5) 5-325 mg 00 every 6 Medic al tablet (six) Branch hours as needed for Pain. hydrocodone Yes 1{tbl} Take 1-2 Univers -acetaminop 8-25 Tabs by ity o f hen (NORCO 00:00: mouth [place] 5) 5-325 mg 00 every 6 Medic al tablet (six) Branch hours as needed for Pain. hydrocodone Yes 1{tbl} Take 1-2 Univers -acetaminop 8-25 Tabs by ity o f hen (NORCO 00:00: mouth [place] 5) 5-325 mg 00 every 6 Medic al tablet (six) Branch hours as needed for Pain. hydrocodone Yes 1{tbl} Take 1 Tab Univers -acetaminop 7-22 by mouth ity of hen ([place] 00:00: every 4 [place] 5) 5-325 mg 00 (four) Medica l tablet hours as Branch needed for Pain. proMETHazin Yes 25mg Take 1 Tab Univers e 7-22 by mouth ity of (PHENERGAN) 00:00: every 6 [place] 25 mg 00 (six) Medical tablet hours as Branch needed for Nausea and Vomiting. ranitidine Yes 150mg Take 1 Tab Univers (ZANTAC) 7-22 by mouth 2 ity o f 150 mg 00:00: (two) [place] tablet 00 times Medical daily. Branch hydrocodone Yes 1{tbl} Take 1 Tab Univers -acetaminop 7-22 by mouth ity of hen ([place] 00:00: every 4 [place] 5) 5-325 mg 00 (four) Medica l tablet hours as Branch needed for Pain. proMETHazin Yes 25mg Take 1 Tab Univers e 7-22 by mouth ity of (PHENERGAN) 00:00: every 6 [place] 25 mg 00 (six) Medical tablet hours as Branch needed for Nausea and Vomiting. ranitidine Yes 150mg Take 1 Tab Univers (ZANTAC) 7-22 by mouth 2 ity o f 150 mg 00:00: (two) [place] tablet 00 times Medical daily. Branch hydrocodone 2011- Yes 1{tbl} Take 1 Tab Univers -acetaminop 7-22 by mouth ity of hen ([place] 00:00: every 4 [place] 5) 5-325 mg 00 (four) Medica l tablet hours as Branch needed for Pain. proMETHazin 2011-0 Yes 25mg Take 1 Tab Univers e 7-22 by mouth ity of (PHENERGAN) 00:00: every 6 [place] 25 mg 00 (six) Medical tablet hours as Branch needed for Nausea and Vomiting. ranitidine Yes 150mg Take 1 Tab Univers (ZANTAC) 7-22 by mouth 2 ity o f 150 mg 00:00: (two) [place] tablet 00 times Medical daily. Branch hydrocodone Yes 1{tbl} Take 1 Tab Univers -acetaminop 7-22 by mouth ity of hen ([place] 00:00: every 4 [place] 5) 5-325 mg 00 (four) Medica l tablet hours as Branch needed for Pain. proMETHazin 2011-0 Yes 25mg Take 1 Tab Univers e 7-22 by mouth ity of (PHENERGAN) 00:00: every 6 [place] 25 mg 00 (six) Medical tablet hours as Branch needed for Nausea and Vomiting. ranitidine 0 Yes 150mg Take 1 Tab Univers (ZANTAC) 7-22 by mouth 2 ity o f 150 mg 00:00: (two) [place] tablet 00 times Medical daily. Branch hydrocodone Yes 1{tbl} Take 1 Tab Univers -acetaminop 7-22 by mouth ity of hen ([place] 00:00: every 4 [place] 5) 5-325 mg 00 (four) Medica l tablet hours as Branch needed for Pain. proMETHazin 2011-0 Yes 25mg Take 1 Tab Univers e 7-22 by mouth ity of (PHENERGAN) 00:00: every 6 [place] 25 mg 00 (six) Medical tablet hours as Branch needed for Nausea and Vomiting. ranitidine 2011-0 Yes 150mg Take 1 Tab Univers (ZANTAC) 7-22 by mouth 2 ity o f 150 mg 00:00: (two) [place] tablet 00 times Medical daily. Branch hydrocodone 2011- Yes 1{tbl} Take 1 Tab Univers -acetaminop 7-22 by mouth ity of [place] (NORCO 00:00: every 4 [place] 5[place] 5-325 mg 00 (four) Medica l tablet hours as Branch needed for Pain. proMETHazin 2012-0 Yes 25mg Take 1 Tab Univers e 7-22 by mouth ity of (PHENERGAN) 00:00: every 6 [place] 25 mg 00 (six) Medical tablet hours as Branch needed for Nausea and Vomiting. ranitidine 2011-0 Yes 150mg Take 1 Tab Univers (ZANTAC) 7-22 by mouth 2 ity o f 150 mg 00:00: (two) [place] tablet 00 times Medical daily. Branch hydrocodone Yes 1{tbl} Take 1 Tab Univers -acetaminop 7-22 by mouth ity of [place] (NOR[place] 00:00: every 4 [place]) 5-325 mg 00 (four) Medica l tablet hours as Branch needed for Pain. proMETHazin 2011-0 Yes 25mg Take 1 Tab Univers e 7-22 by mouth ity of (PHENERGAN) 00:00: every 6 [place] 25 mg 00 (six) Medical tablet hours as Branch needed for Nausea and Vomiting. ranitidine 2011-0 Yes 150mg Take 1 Tab Univers (ZANTAC) 7-22 by mouth 2 ity o f 150 mg 00:00: (two) [place] tablet 00 times Medical daily. Branch hydrocodone Yes 1{tbl} Take 1 Tab Univers -acetaminop 7-22 by mouth ity of [place] (NOR[place] 00:00: every 4 [place]) 5-325 mg 00 (four) Medica l tablet hours as Branch needed for Pain. proMETHazin 2011-0 Yes 25mg Take 1 Tab Univers e 7-22 by mouth ity of (PHENERGAN) 00:00: every 6 [place] 25 mg 00 (six) Medical tablet hours as Branch needed for Nausea and Vomiting. ranitidine 2012-0 Yes 150mg Take 1 Tab Univers (ZANTAC) 7-22 by mouth 2 ity o f 150 mg 00:00: (two) [place] tablet 00 times Medical daily. Branch hydrocodone 2011- Yes 1{tbl} Take 1 Tab Univers -acetaminop 7-22 by mouth ity of [place] (NORCO 00:00: every 4 [place]) 5-325 mg 00 (four) Medica l tablet hours as Branch needed for Pain. proMETHazin 2011-0 Yes 25mg Take 1 Tab Univers e 7-22 by mouth ity of (PHENERGAN) 00:00: every 6 [place] 25 mg 00 (six) Medical tablet hours as Branch needed for Nausea and Vomiting. ranitidine 2011-0 Yes 150mg Take 1 Tab Univers (ZANTAC) 7-22 by mouth 2 ity o f 150 mg 00:00: (two) [place] tablet 00 times Medical daily. Branch hydrocodone 2011-0 Yes 1{tbl} Take 1 Tab Univers -acetaminop 7-22 by mouth ity of [place] (NORCO 00:00: every 4 [place]) 5-325 mg 00 (four) Medica l tablet hours as Branch needed for Pain. proMETHazin 2011-0 Yes 25mg Take 1 Tab Univers e 7-22 by mouth ity of (PHENERGAN) 00:00: every 6 [place] 25 mg 00 (six) Medical tablet hours as Branch needed for Nausea and Vomiting. ranitidine 2011-0 Yes 150mg Take 1 Tab Univers (ZANTAC) 7-22 by mouth 2 ity o f 150 mg 00:00: (two) [place] tablet 00 times Medical daily. Branch hydrocodone 2011-0 Yes 1{tbl} Take 1 Tab Univers -acetaminop 7-22 by mouth ity of [place] (NORCO 00:00: every 4 [place] 5) 5-325 mg 00 (four) Medica l tablet hours as Branch needed for Pain. proMETHazin 2011-0 Yes 25mg Take 1 Tab Univers e 7-22 by mouth ity of (PHENERGAN) 00:00: every 6 [place] 25 mg 00 (six) Medical tablet hours as Branch needed for Nausea and Vomiting. ranitidine 2011-0 Yes 150mg Take 1 Tab Univers (ZANTAC) 7-22 by mouth 2 ity o f 150 mg 00:00: (two) [place] tablet 00 times Medical daily. Branch Immunizations Ordered Filled Immunization Date Status Comments [facility] e Immunization Name Name TD 2015-10-19 Completed University 00:00:00 [facility] TD 2015-10-19 Completed University 00:00:00 [facility] 2015-10-19 Completed University of 00:00:00 [facility] 2015-10-19 Completed University of 00:00:00 [place] [facility] TDAP 2015-10-19 Completed University of 00:00:00 [place] [facility] TDAP 2015-10-19 Completed University of 00:00:00 [place] [facility] TDAP 2015-10-19 Completed University of 00:00:00 [place] [facility] TDAP 2015-10-19 Completed University of 00:00:00 [place] [facility] TDAP 2015-10-19 Completed University of 00:00:00 [place] [facility] TDAP 2015-10-19 Completed University of 00:00:00 [place] [facility] TDAP 2015-10-19 Completed University of 00:00:00 [facility] Vital Signs Vital Name Observation Time Observation Value Comments Source Systolic blood 2021-06-22 22:36:00 121 mm[Hg] Univer sity of pressure [facility] Diastolic blood 2021-06-22 22:36:00 86 mm[Hg] Unive rsity of [facility] Heart rate 2021-06-22 22:36:00 98 /min [facility] Body temperature 2021-06-22 22:36:00 36.78 [place] [facility] Respiratory rate 2021-06-22 22:36:00 19 /min [facility] Body height 2021-06-22 22:36:00 149.9 cm [facility] Body weight 2021-06-22 22:36:00 85.73 kg [facility] BMI 2021-06-22 22:36:00 38.17 kg/m2 [facility] Oxygen saturation in 2021-06-22 22:36:00 100 /min [facility] Arterial blood by [facility] Pulse oximetry Branch Systolic blood 2021-05-18 23:09:00 133 mm[Hg] Univer sity of pressure [facility] Diastolic blood 2021-05-18 23:09:00 86 mm[Hg] Unive rsity of pressure [facility] Heart rate 2021-05-18 23:09:00 100 /min [facility] Body temperature 2021-05-18 23:09:00 36.83 [place] [facility] Respiratory rate 2021-05-18 23:09:00 16 /min [facility] Branch Body height 2021-05-18 23:09:00 152.4 cm Universi ty [facility] [place] [facility] Body weight 2021-05-18 23:09:00 85.73 kg Universi ty [facility] [place] [facility] BMI 2021-05-18 23:09:00 36.91 kg/m2 Universi ty [facility] [place] [facility] Oxygen saturation in 2021-05-18 23:09:00 97 /min University of Arterial blood by [place] [facility] Pulse oximetry Branch Systolic blood 2021-03-03 22:11:00 141 mm[Hg] Univer sity of pressure [place] [facility] Diastolic blood 2021-03-03 22:11:00 85 mm[Hg] Unive rsity of pressure [place] [facility] Heart rate 2021-03-03 22:11:00 97 /min Universi ty of [place] [facility] Body temperature 2021-03-03 22:11:00 37.11 [place] Univ ersity of [place] [facility] Respiratory rate 2021-03-03 22:11:00 16 /min Univ ersity of [place] [facility] Body height 2021-03-03 22:11:00 152.4 cm [facility] [place] [facility] Body weight 2021-03-03 22:11:00 68.04 kg [facility] [place] [facility] BMI 2021-03-03 22:11:00 29.29 kg/m2 Universi ty [facility] [place] [facility] Oxygen saturation in 2021-03-03 22:11:00 97 /min University of Arterial blood by [place] [facility]evgeniy Pulse oximetry Branch Systolic blood 2021-01-23 03:39:00 126 mm[Hg] Univer sity of pressure [place] [facility] Diastolic blood 2021-01-23 03:39:00 91 mm[Hg] Unive rsity of pressure [place] [facility] Heart rate 2021-01-23 03:39:00 89 /min [facility]i ty [facility] [place] [facility] Respiratory rate 2021-01-23 03:39:00 16 /min Univ ersity of [place] [facility] Oxygen saturation in 2021-01-23 03:39:00 98 /min University of Arterial blood by [place] [facility]i yevgeniy Pulse oximetry Branch Body temperature 2021-01-23 01:34:00 37.67 [place] [facility] ersity of [place] [facility] Body height 2021-01-23 01:34:00 152.4 cm Universi ty [facility] [place] [facility] Body weight 2021-01-23 01:34:00 68.04 kg Universi [facility] [place] [facility] BMI 2021-01-23 01:34:00 29.29 kg/m2 [facility] [place] [facility] Systolic blood 2021-01-23 03:39:00 126 mm[Hg] Univer sity of pressure [place] [facility] Diastolic blood 2021-01-23 03:39:00 91 mm[Hg] Unive rsity of pressure [place] [facility] Heart rate 2021-01-23 03:39:00 89 /min Universi ty [facility] [place] [facility] Respiratory rate 2021-01-23 03:39:00 16 /min Univ ersity of [place] [facility] Oxygen saturation in 2021-01-23 03:39:00 98 /min University of Arterial blood by [place] ACSIAN yevgeniy Pulse oximetry Branch Body temperature 2021-01-23 01:34:00 37.67 [place] [facility] ersity of [place] [facility] Body height 2021-01-23 01:34:00 152.4 cm Universi [facility] [place] [facility] Body weight 2021-01-23 01:34:00 68.04 kg [facility]i [facility] [place] [facility] BMI 2021-01-23 01:34:00 29.29 kg/m2 [facility] [place] [facility] Systolic blood 2021-01-08 16:42:00 118 mm[Hg] Univer sity of pressure [place] [facility] Diastolic blood 2021-01-08 16:42:00 85 mm[Hg] Unive rsity of pressure [place] [facility] Heart rate 2021-01-08 16:42:00 89 /min Universi ty [facility] [place] [facility] Body temperature 2021-01-08 16:42:00 36.78 [place] [facility] ersity of [place] [facility] Respiratory rate 2021-01-08 16:42:00 18 /min Univ ersity of [place] [facility] Body weight 2021-01-08 16:42:00 72.576 kg [facility]i [facility] [place] [facility] BMI 2021-01-08 16:42:00 31.25 kg/m2 [facility] [place] [facility] Oxygen saturation in 2021-01-08 16:42:00 98 /min University of Arterial blood by [place] ACS[facility] yevgeniy Pulse oximetry Branch Systolic blood 2021-01-08 16:42:00 118 mm[Hg] Univer sity of pressure [place] [facility] Diastolic blood 2021-01-08 16:42:00 85 mm[Hg] Unive rsity of pressure [place] [facility] Heart rate 2021-01-08 16:42:00 89 /min [facility] [place] [facility] Body temperature 2021-01-08 16:42:00 36.78 [place] Univ ersity of [place] [facility] Respiratory rate 2021-01-08 16:42:00 18 /min Univ ersity of [place] [facility] Body weight 2021-01-08 16:42:00 72.576 kg [facility]i [facility] [place] [facility] BMI 2021-01-08 16:42:00 31.25 kg/m2 [facility] [place] [facility] Oxygen saturation in 2021-01-08 16:42:00 98 /min University of Arterial blood by [facility] Pulse oximetry Branch Systolic blood 2021-01-06 07:57:17 130 mm[Hg] Univer sity of pressure [place] [facility] Diastolic blood 2021-01-06 07:57:17 80 mm[Hg] Unive rsity of pressure [place] [facility] Heart rate 2021-01-06 07:57:17 85 /min Universi ty [facility] [place] [facility] Respiratory rate 2021-01-06 07:57:17 16 /min Univ ersity of [place] [facility] Oxygen saturation in 2021-01-06 07:57:17 98 /min University of Arterial blood by [facility] Pulse oximetry Branch Body temperature 2021-01-06 05:25:00 36.72 [place] Univ ersity of [place] [facility] Body height 2021-01-06 05:25:00 152.4 cm [facility] [place] [facility] Body weight 2021-01-06 05:25:00 72.576 kg [facility] [place] [facility] BMI 2021-01-06 05:25:00 31.25 kg/m2 Universi ty [facility] [place] [facility] Systolic blood 2021-01-06 07:57:17 130 mm[Hg] Univer sity of pressure [place] [facility] Diastolic blood 2021-01-06 07:57:17 80 mm[Hg] Unive rsity of pressure [place] [facility] Heart rate 2021-01-06 07:57:17 85 /min [facility]i [facility] [place] [facility] Respiratory rate 2021-01-06 07:57:17 16 /min Univ ersity of [place] [facility] Oxygen saturation in 2021-01-06 07:57:17 98 /min University of Arterial blood by [place] ACS[facility] yevgeniy Pulse oximetry Branch Body temperature 2021-01-06 05:25:00 36.72 [place] [facility] ersity of [place] [facility] Body height 2021-01-06 05:25:00 152.4 cm [facility] [place] [facility] Body weight 2021-01-06 05:25:00 72.576 kg [facility] [place] [facility] BMI 2021-01-06 05:25:00 31.25 kg/m2 [facility] [place] [facility] Systolic blood 2021-01-01 01:44:12 122 mm[Hg] Univer sity of pressure [place] [facility] Diastolic blood 2021-01-01 01:44:12 82 mm[Hg] Unive rsity of pressure [place] [facility] Heart rate 2021-01-01 01:44:12 64 /min [facility]i [facility] [place] [facility] Respiratory rate 2021-01-01 01:44:12 16 /min Univ ersity of [place] [facility] Oxygen saturation in 2021-01-01 01:44:12 100 /min University of Arterial blood by [place] ACS[facility] yevgeniy Pulse oximetry Branch Body temperature 2020-12-31 23:25:00 37.06 [place] [facility] ersity of [place] [facility] Body weight 2020-12-31 23:25:00 81.647 kg [facility] [place] [facility] BMI 2020-12-31 23:25:00 35.15 kg/m2 [facility] [place] [facility] Systolic blood 2021-01-01 01:44:12 122 mm[Hg] Univer sity of pressure [place] [facility] Diastolic blood 2021-01-01 01:44:12 82 mm[Hg] Unive rsity of pressure [place] [facility] Heart rate 2021-01-01 01:44:12 64 /min [facility]i [facility] [place] [facility] Respiratory rate 2021-01-01 01:44:12 16 /min Univ ersity of [place] [facility] Oxygen saturation in 2021-01-01 01:44:12 100 /min University of Arterial blood by [place] ACS[facility] yevgeniy Pulse oximetry Branch Body temperature 2020-12-31 23:25:00 37.06 [place] [facility] ersity of [place] [facility] Body weight 2020-12-31 23:25:00 81.647 kg Universi ty of [place] [facility] BMI 2020-12-31 23:25:00 35.15 kg/m2 Universi ty of [facility] Branch Systolic blood 2020-12-10 06:00:00 112 mm[Hg] Univer sity of pressure [place] [facility] Diastolic blood 2020-12-10 06:00:00 70 mm[Hg] Unive rsity of pressure [facility] Branch Heart rate 2020-12-10 06:00:00 84 /min Universi ty of [place] [facility] Respiratory rate 2020-12-10 06:00:00 16 /min Univ ersity of [facility] Branch Oxygen saturation in 2020-12-10 06:00:00 99 /min University of Arterial blood by [facility] Pulse oximetry Branch Body temperature 2020-12-10 01:40:00 37.11 [place] [facility] [place] [facility] Body weight 2020-12-10 01:40:00 81.647 kg Universi ty of [place] [facility] BMI 2020-12-10 01:40:00 35.15 kg/m2 Universi ty of [facility] Branch Systolic blood 2020-12-10 06:00:00 112 mm[Hg] Univer sity of pressure [place] [facility] Diastolic blood 2020-12-10 06:00:00 70 mm[Hg] Unive rsity of pressure [place] [facility] [place] Heart rate 2020-12-10 06:00:00 84 /min Universi ty [facility] [place] [facility] Respiratory rate 2020-12-10 06:00:00 16 /min Univ ersity of [place] [facility] Oxygen saturation in 2020-12-10 06:00:00 99 /min University of Arterial blood by [facility] Pulse oximetry Branch Body temperature 2020-12-10 01:40:00 37.11 [place] Univ ersity of [facility] Body weight 2020-12-10 01:40:00 81.647 kg Universi ty of [facility] Branch BMI 2020-12-10 01:40:00 35.15 kg/m2 [facility] ty [facility] [place] [facility] Procedures Procedure Date / Time Performed Performing Clinician Souralok e XR SHOULDER 2+ VW LEFT 2021-06-22 23:22:00 Nelson Jones [facility] CONSENT/REFUSAL FOR 2021-06-22 22:32:46 Doctor Unassigned, No [facility] [place] DIAGNOSIS AND Name Medical Branch TREATMENT NOTICE OF PRIVACY 2021-06-22 22:32:11 Doctor Unassigned, No [facility] Medical Branch XR ANKLE 3+ VW LEFT 2021-05-18 23:39:19 Nelson Jones [facility] XR TIBIA FIBULA 2 VW 2021-05-18 23:39:19 Nelson Jones [facility] OF [facility]IVACY 2021-05-18 23:06:10 Doctor Unassigned, No [facility] Branch CONSENT/REFUSAL FOR 2021-05-18 23:05:34 Doctor Unassigned, No Un [facility] [place] DIAGNOSIS AND Name Medical Branch TREATMENT XR ANKLE 3+ VW LEFT 2021-03-03 22:44:43 Joyce Bello [facility] POCT TEST 2021-01-23 03:16:00 Ashley Hoffman [facility] Branch XR ANKLE 3+ VW LEFT 2021-01-23 02:21:27 Ashley Hoffman [facility] Medical Branch XR FOOT 3+ VW LEFT 2021-01-23 02:21:27 Ashley Hoffman [facility] Branch XR KNEE 3 VW LEFT 2021-01-23 02:21[facility] TIBIA [facility]IB[facility] 2 VW 2021-01-23 02:21:27 Ashley Hoffman [facility] CONSENT/REFUSAL FOR 2021-01-23 01:04:20 Doctor Unassigned, No [facility] [place] DIAGNOSIS AND Name Medical Branch TREATMENT POCT TEST 2021-01-08 16:54:00 Joyce Bello [facility] [facility] LIPASE 2021-01-08 16:51:00 Joyce Bello [facility] HEPATIC FUNCTION PANEL 2021-01-08 16:51:00 Joyce Bello [facility] [place] ([id number]) Medical Branch (ALB,T.PRO,BILI T,BU/BC,ALT,AST,ALK PHOS) BASIC METABOLIC PANEL 2021-01-08 16:51:00 Joyce Bello [facility] (NA, K, CL, CO2, Medical Branch GLUCOSE, BUN, CREATININE, CA) CBC WITH DIFF 2021-01-08 16:51:00 Joyce Bello [facility] URINALYSIS 2021-01-08 16:51:00 Joyce Bello [facility] CONSENT/REFUSAL FOR 2021-01-08 16:36:20 Doctor Unassigned, No [facility] [place] DIAGNOSIS AND Name Medical Branch TREATMENT RAPID STREP SCREEN FOR 2021-01-06 07:24:00 [facility] GROUP A Medical Branch URINALYSIS 2021-01-06 06:36:00 Anaid [facility] [place] [facility] COVID-19 (ID NOW RAPID 2021-01-06 06:29:00 Anaid [facility] TESTING) Medical Branch CONSENT/REFUSAL FOR 2021-01-06 05:04:46 Doctor Unassigned, No [facility] [place] DIAGNOSIS AND Name [facility] TREATMENT XR ANKLE 3+ VW LEFT 2021-01-01 01:00:37 Cassandra Cash [facility] CONSENT/REFUSAL FOR 2020-12-31 23:11:51 Doctor Unassigned, No [facility] [place] DIAGNOSIS AND Name [facility] Branch TREATMENT NOTICE OF PRIVACY 2020-12-31 23:11:21 Doctor Unassigned, No [facility] PRACTICES Name [facility] URINALYSIS 2020-12-10 04:45:00 Hammad Castellanos [facility] XR LUMBAR SPINE 2 VW 2020-12-10 04:44:46 Hammad Castellanos [facility] POCT TEST 2020-12-10 04:41:00 Hammad Castellanos [facility] Encounters Start End Encounter Admission Attending Care Care Encounter Source Date/Time Date/Time Type Type Clinicians Facility Department ID 2021-06-22 2021-06-22 Emergency X KAREN [facility] ERT [id number] Univers 16:39:00 18:27:00 NELSON [facility] 2021-06-22 2021-06-22 Emergency [facility] [id number] Univers 16:39:00 18:27:00 Nelson ANAND [id number] i ty [id number] [facility] [id number] [address] 2021-05-18 2021-05-[address] [facility] ERT [id number] Univers 17:15:00 18:51:[address] [facility] 2021-05-18 2021-05-18 Emergency [facility] [id number] Univers 17:15:00 18:51:00 Nelson ANAND [id number] i ty of [place] [id number] [facility] [id number] [address] 2021-03-03 2021-03-03 Emergency [facility] [id number] Univers 17:12:00 18:23:00 Joyce Anand [id number] ity of [place] [id number] [facility] [id number] [address] 2021-03-03 2021-03-03 [facility] [id number] Univers 17:12:00 17:12:[address] [facility] 2021-01-22 2021-01-22 Emergency [facility] [id number] Univers 20:36:00 22:45:00 Ashley Anand [id number] i ty of [place] [id number] [facility] [id number] [address] 2021-01-22 2021-01-22 Emergency X [facility] ERT [id number] Univers 20:36:00 22:45:[address] [facility] 2021-01-22 2021-01-22 Emergency [facility] [id number] 20:36:00 22:45:00 Ashley Anand [id number] [place] [id number] [place] [id number] 2021-01-22 2021-01-22 Nurse DAVID Griggs [id number] Univers 00:00:00 00:00:00 Triage Isabelle LUNA [id number] ity of HOSPITAL [id number] [place] [id number] [facility] 019 Branch 2021-01-22 2021-01-22 Orders Doctor DAVID [id number] Univers 00:00:00 00:00:00 Only Unassigned, CHERYL [id number] ity of [place] [facility] [id number] [place] [id number] [facility] 009 Branch 2021-01-22 2021-01-22 DAVID Wylie [id number] 00:00:00 00:00:00 Triage Isabelle JAYY [id number] HOSPITAL [id number] [id number] 2021-01-22 2021-01-22 Orders Doctor DAVID [id number] 00:00:00 00:00:00 Only Unassigned, CHERYL [id number] [place] [facility] 4.2.7.2.686 [id number] [id number] 2021-01-08 2021-01-08 Emergency [facility] [id number] Univers 11:45:00 13:10:00 Joyce Anand [id number] [place]y [place] [id number] [place] [id number] [facility] 084 Branch 2021-01-08 2021-01-[address] [facility] 1.2.840.114 [id number] 11:45:00 13:10:00 Joyce Anand [id number] [place] [id number] [place] [id number] 084 2021-01-08 2021-01-[address] [facility] ERT [id number] Univers 11:36:00 11:36:[address] [facility] 2021-01-06 2021-01-06 Emergency Anaid, [facility] [id number] Univers 00:28:00 03:00:00 Cynnani Caret [id number] i ty of [place] [id number] [facility] [id number] [address] 2021-01-06 2021-01-06 Emergency Anaid, [facility] [id number] 00:28:00 03:00:00 Cynise Caret [id number] [place] [id number] [place] [id number] [facility] 2021-01-06 2021-01-[address] [facility] ERT [id number] Univers 00:04:00 00:04:[address] [facility] 2020-12-31 2020-12-31 Emergency Ibikunle, [facility] 1.2.840.114 [id number] Univers 18:26:00 21:47:00 Folleslieo Mannie Caret [id number] ity of [place] [id number] [facility] [id number] [address] 2020-12-31 2020-12-31 Emergency Ibikunle, [facility] 1.2.840.114 [id number] 18:26:00 21:47:00 Folleslieo F Caret [id number] [place] [id number] [place] [id number] [facility] 2020-12-31 2020-12-31 Emergency X IBIKUNLE, [facility] ERT [id number] Univers 18:26:00 18:26:00 [facility] 2020-12-09 2020-12-10 Emergency Emanuel, [facility] 1.2.840.114 [id number] Univers 20:42:00 01:58:00 Hammad B Caret [id number] i ty of [place] [id number] [facility] [id number] [address] 2020-12-09 2020-12-10 Emergency [place], [facility] 1.2.840.114 [id number] 20:42:00 01:58:00 Hammad Anand [id number] [place] [id number] [place] [id number] 084 2020-12-09 2020-12-09 Emergency X EMANUEL, [facility] ERT [id number] Univers 20:42:00 20:42:[address] [facility] 2020-11-16 2020-11-16 [id number]- [facility] 16:01:00 16:01:00 HAILE [id number] [facility]pi [facility] ([place]) 2020-10-08 2020-10-08 Emergency [facility] [id number] 9- [place]ian[place] 02:51:00 02:51:00 HAILE [id number] Hospi ta l ([place]) Results Test Description Test Time Test Comments Results Result Comments Source HCG, QUALITATIVE 2021-06-23 06:45:39 Test Item Value Reference Range Interpretation Comme nts HCG, QUALITATIVE (test code = NEGATIVE NEGATIVE UNLESS OTHERWISE 2507) INDICATED, ALL TESTING PERFORMED ATCLINICAL PATH [facility] [place] [address] 4 LABORATORY DIRE CTOR: ANGEL RAINES M.D. CLIA NUMBER [id number] [place]. [id number] CBC W/AUTO DIFF WITH [id number] 05:03:48 Test Item Value Reference Range Interpretation Comments WBC (test code = 8.8 K/UL 3.5-11.0 1001) RBC (test code = 4.36 M/UL 3.80-5.40 1002) HEMOGLOBIN (test code 12.1 G/DL 11.5-15.5 = 1003) HEMATOCRIT (test code 35.6 % 34.0-45.0 = 1004) MCV (test code = 81.7 fL 80.0-99.0 1005) MCH (test code = 27.8 PG 25.0-33.0 1006) MCHC (test code = 34.0 G/DL 31.0-36.0 1007) RDW (test code = 13.5 % 11.5-15.0 1038) NEUTROPHILS (test 59.1 % code = 1008) LYMPHOCYTES (test 29.7 % code = 1010) MONOCYTES (test code 9.1 % = 1011) EOSINOPHILS (test 1.5 % code = 1012) BASOPHILS (test code 0.1 % = 1013) IMMATURE GRANYLOCYTES 0.5 % (test code = 1036) NUCLEATED RBCS (test 0.0 /100 See_Comment [Autom ated code = 1065) WBC'S message] The sy stem which generated this result transmitted reference range : 0.0. The refere nce range was not u sed to interpret th is result as normal/abnormal . PLATELET COUNT (test 365 K/UL 130-400 code = 1015) ABSOLUTE NEUTROPHILS 5.20 K/UL 1.50-7.50 (test code = 1066) ABSOLUTE LYMPHOCYTES 2.61 K/UL 1.00-4.00 (test code = 1067) ABSOLUTE MONOCYTES 0.80 K/UL 0.20-1.00 (test code = 1068) ABSOLUTE EOSINOPHILS 0.13 K/UL 0.00-0.50 (test code = 1040) ABSOLUTE BASOPHILS 0.01 K/UL 0.00-0.20 (test code = 1069) ABS IMMATURE 0.04 K/UL 0.00-0.10 GRANULOCYTES (test code = 1020) ABS NUCLEATED RBCS 0.00 K/UL 0.00-0.11 (test code = 89751) POCT [id number] 03:16:00 Test Item Value Reference Range Interpretation Comments POCT PREG (test code = 1605) Negative On board controls acceptable with Present C Line (test code = 3574) POCT PREG LOT # (test code = HCG [id number]) POCT PREG TEST DATE (test 06/15/2022 code = 3576) Lab Interpretation (test code = Normal 76889-7) [facility] 17:54:54 Test Item Value Reference Range Interpretation Comments APPEARANCE (test code = Hazy Clear A 7442208769) COLOR (test code = Yellow Yellow 4452140244) PH (test code = 4.8-8.0 0131483893) SP GRAVITY (test code = 1.003-1.030 2880353792) GLU U QUAL (test code = Normal Normal 6110917663) BLOOD (test code = 1+ Negative A 6773012995) KETONES (test code = Negative Negative 8463321273) PROTEIN (test code = Negative Negative 2887-8) UROBILIN (test code = Normal Normal 2691268007) BILIRUBIN (test code = Negative Negative 7722946945) NITRITE (test code = Negative Negative 3997230217) LEUK LUIZ (test code = Negative Negative 2427232975) RBC/HPF (test code = See_Comment H [Autom ated message] 0286274676) The system [employer] generated this result transmitted ref erence range: 0 - 3 HP F. The reference range was not used to int erpret this result as normal/abnormal . WBC/HPF (test code = See_Comment [Autom ated message] 4758518563) The system [employer] generated this result transmitted ref erence range: 0 - 5 HP F. The reference range was not used to int erpret this result as normal/abnormal . BACTERIA (test code = Few Negative A 8001190511) SQ EPITH (test code = HPF 0770928215) Lab Interpretation (test Abnormal code = 23717-5) [facility] WITH [id number] 17:27:22 Test Item Value Reference Range Interpretation Comments WBC (test code = See_Comment [Automated message] 6690-2) The system [employer] generated this result transmitted ref erence range: 4.30 - 1 1.10 10*3/?L. The re ference range was not u sed to interpret this result as normal/abnor mal. RBC (test code = See_Comment [Automated message] 789-8) The system [employer] generated this result transmitted ref erence range: 3.93 - 5 .25 10*6/?L. The re ference range was not u sed to interpret this result as normal/abnor mal. HGB (test code = 12.6 g/dL 11.6-15.0 718-7) HCT (test code = 39.1 % 35.7-45.2 4544-3) MCV (test code = 85.6 fL 80.6-95.5 787-2) MCH (test code = 27.6 pg 25.9-32.8 785-6) MCHC (test code = 32.2 g/dL 31.6-35.1 786-4) RDW-SD (test code 40.7 fL 39.0-49.9 = 73897-1) RDW-CV (test code 13.1 % 12.0-15.5 = 788-0) PLT (test code = See_Comment [Automated message] 777-3) The system whic h generated this result transmitted ref erence range: 166 - 35 8 10*3/?L. The re ference range was not u sed to interpret this result as normal/abnor mal. MPV (test code = 10.3 fL 9.5-12.9 05717-2) NRBC/100 WBC (test See_Comment [Automat ed message] code = 4478834419) The syste m which generated this result transmitted ref erence range: 0.0 - 10 .0 /100 WBCs. The refer ence range was not u sed to interpret this result as normal/abnor mal. NRBC x10^3 (test <0.01 See_Comment [Automated message] code = 9284974781) The syste m which generated this result transmitted ref erence range: 10*3/?L. The reference range was not used to interpr et this result as normal/abnormal . GRAN MAT (NEUT) % 58.2 % (test code = 770-8) IMM GRAN % (test 0.50 % code = 4933136785) LYMPH % (test code 29.0 % = 736-9) MONO % (test code 10.0 % = 5905-5) EOS % (test code = 2.0 % 713-8) BASO % (test code 0.3 % = 706-2) GRAN MAT 4.65 10*3/uL 1.88-7.09 x10^3(ANC) (test code = 4248837846) IMM GRAN x10^3 0.04 10*3/uL 0.00-0.06 (test code = 7484769325) LYMPH x10^3 (test 2.32 10*3/uL 1.32-3.29 code = 731-0) MONO x10^3 (test 0.80 10*3/uL 0.33-0.92 code = 742-7) EOS x10^3 (test 0.16 10*3/uL 0.03-0.39 code = 711-2) BASO x10^3 (test <0.03 0.01-0.07 code = 704-7) [facility] METABOLIC PANEL (NA, K, CL, CO2, GLUCOSE, BUN, CREATININE, CA)2021-01-08 17:13:17 Test Item Value Reference Range Interpretation Comments NA (test code = 139 mmol/L 135-145 7025733547) K (test code = 3.9 mmol/L 3.5-5.0 7489822985) CL (test code = 106 mmol/L 98-108 2844309434) CO2 TOTAL (test code 25 mmol/L 23-31 = 9652576737) AGAP (test code = 2-16 4502443857) BUN (test code = 21 mg/dL 7-23 5328715030) GLUCOSE (test code = 99 mg/dL 70-110 8208752364) CREATININE (test code 0.59 mg/dL 0.50-1.04 = 5965823778) CALCIUM (test code = 8.9 mg/dL 8.6-10.6 4944051068) eGFR (test code = mL/min/1.73m2 2492858150) REDD (test code = REDD) Association of Glomerular Filtration Rate (GFR) and Staging of Kidney Disease* + + +- +| GFR (mL/min/1.73 m2) ?| With Kidney Damage ?| ?Without Kidney Damage+ ------+ ----+ ------+| ?>90 ?| ?Stage one ?| ? Normal ?+ -+ + -+| ?60-89 ?| ?Stage two ?| ? Decreased GFR ? + + +- +| ?30-59 ?| ?Stage three ?| ? Stage three ? + + +- +| ?15-29 ?| ?Stage four ? | ? Stage four ?+ -+ + -+| ?<15 (or dialysis) ? ?| ?Stage five ? | ? Stage five ?+ -+ + -+ *Each stage assumes the associated GFR level has been in effect for at least three months. ?Stages 1 to 5, with or without kidney disease, indicate chronic kidney disease. Notes: Determination of stages one and two (with eGFR >59mL/min/1.73 m2) requires estimation of kidney damage for at least three months as defined by structural or functional abnormalities of the kidney, manifested by either:Pathological abnormalities or Markers of kidney damage (including abnormalities in the composition of the blood or urine or abnormalities in imaging tests). [facility] (14818) (ALB,T.PRO,BILI T,BU/BC,ALT,AST,ALK PHOS)2021-01-08 17:13:17 Test Item Value Reference Range Interpretation Comments TOTAL BILI (test code = 6731471253) 0.4 mg/dL 0.1-1.1 BILI UNCON (test code = 8756658195) 0.3 mg/dL 0.1-1.1 BILI CONJ (test code = 0406938239) 0.0 mg/dL 0.0-0.3 T PROTEIN (test code = 4048904170) 8.4 g/dL 6.3-8.2 H ALBUMIN (test code = 1390466760) 4.4 g/dL 3.5-5.0 ALK PHOS (test code = 0312329234) 91 U/L 34-122 ALTv (test code = 1742-6) 25 U/L 5-35 AST(SGOT) (test code = 7905921975) 35 U/L 13-40 Lab Interpretation (test code = Abnormal 23064-6) [facility]2021-07-[facility] 17:13:17 Test Item Value Reference Range Interpretation Comments LIPASE (test code = 8533531628) 161 U/L 0-220 Lab Interpretation (test code = Normal 32318-1) [facility]PO[facility] [id number] 16:54:00 Test Item Value Reference Range Interpretation Comments POCT PREG (test code = 1605) negative On board controls acceptable with present C Line (test code = 3574) POCT PREG LOT # (test code = 3573) [id number] POCT PREG TEST DATE (test code = 3575) Lab Interpretation (test code = Normal 83178-5) [facility] [id number] 07:46:31 Test Item Value Reference Range Interpretation Comments Streptococcus pyogenes (group A) Negative Negative antigen (test code = 14177-1) Lab Interpretation (test code = Normal 47858-7) [facility]COVID[facility] (ID NOW RAPID TESTING)2021-01-06 07:02:23 Test Item Value Reference Range Interpretation Comments SARS-CoV-2 Rapid ID NOW Not Detected Not Detected (test code = 73081-7) REDD (test code = REDD) ID NOW COVID-19 Assay is an isothermal nucleic acid amplification test intended for the qualitative detection of nucleic acid from SARS-CoV-2 viral RNA in nasopharyngeal (UTILIZATION REVIEW NURSE) specimens. It is used under Emergency Use Authorization (EUA) by FDA. The limit of detection (LOD) of the assay is 125 Genome Equivalents/mL. A positive result is indicative of the presence of SARS-CoV-2 RNA. ?Clinical correlation with patient history and other diagnostic information is necessary to determine patient infection status. A negative (Not Detected) result does not preclude SARS-CoV-2 infection. In patients with clinical symptoms and other tests that are consistent with SARS-CoV-2 infection, negative results should be treated as presumptive negative and a new specimen should be tested with alternative PCR molecular test. Invalid: Please collect a new specimen for repeat patient testing if clinically indicated. Lab Interpretation Normal (test code = 71260-4) [facility]2021-[facility]-24 06:59:50 Test Item Value Reference Range Interpretation Comments APPEARANCE (test code = Cloudy Clear A 3356106809) COLOR (test code = Yellow Yellow 1366403992) PH (test code = 4.8-8.0 4301216760) SP GRAVITY (test code = 1.003-1.030 3594411075) GLU U QUAL (test code = Normal Normal 7806861009) BLOOD (test code = 1+ Negative A 9264243990) KETONES (test code = Negative Negative 0626724965) PROTEIN (test code = Negative Negative 2887-8) UROBILIN (test code = Normal Normal 7786370306) BILIRUBIN (test code = Negative Negative 6630194193) NITRITE (test code = Negative Negative 2762928873) LEUK LUIZ (test code = Negative Negative 2181129941) RBC/HPF (test code = See_Comment H [Autom ated message] 8977746993) The system [employer] generated this result transmitted ref erence range: 0 - 3 HP F. The reference range was not used to int erpret this result as normal/abnormal . WBC/HPF (test code = See_Comment [Autom ated message] 9411977916) The system [employer] generated this result transmitted ref erence range: 0 - 5 HP F. The reference range was not used to int erpret this result as normal/abnormal . BACTERIA (test code = Moderate Negative A 5158335102) MUCOUS (test code = Slight Negative LPF A 0458144474) SQ EPITH (test code = HPF 4383502395) TRANS EPI (test code = <1 See_Comment [Aut omated message] 4744488663) The system [employer] generated this result transmitted ref erence range: <=1 HPF. The reference range was not used to int erpret this result as normal/abnormal . Lab Interpretation (test Abnormal code = 09964-4) [facility] HospitalXR ANKLE 3+ VW [id number] 01:53:59There is no acute fracture or dislocation of the left ankle. RL: 6507 STUDY: XRAY XR ANKLE 3+ VW LEFT ORDERING PHYSICIAN: CASSANDRA CASH DATE: ?12/31/2020 7:45 PM REASON FOR EXAM: ?left ankle pain COMPARISON: None available TECHNIQUE: AP, lateral and oblique views of the left ankle FINDINGS: There is no acute fracture or dislocation. ? The joint spaces arepreserved. ?The alignment is anatomic. ?The soft tissues are unremarkable. [facility], Radiant Results Inft User - 12/31/2020 8:55 PM CDTFormatting of this note might be different fromthe original.STUDY: XRAY XR ANKLE 3+ VW LEFTORDERING PHYSICIAN: CASSANDRA HELTONATE: 12/31/2020 7:45 PMREASON FOR EXAM: left ankle pain COMPARISON: None available TECHNIQUE: AP, lateral and obliqueviews of the left ankleFINDINGS: There is no acute fracture or dislocation. The joint spaces arepreserved. The alignment is anatomic. The soft tissues are unremarkable. IMPRESSIONThere is no acute fracture or dislocation of the left ankle.RL: 6507 [facility] CenterUrinalysis2021-06-27 05:46:16 Test Item Value Reference Range Interpretation Comments APPEARANCE (test code = Hazy Clear A 5821247419) COLOR (test code = Yellow Yellow 5817337700) PH (test code = 4.8-8.0 8352701850) SP GRAVITY (test code = 1.003-1.030 0124441014) GLU U QUAL (test code = Normal Normal 0057306359) BLOOD (test code = 1+ Negative A 9698727039) KETONES (test code = Negative Negative 2050391905) PROTEIN (test code = 30 mg/dL Negative A 2887-8) UROBILIN (test code = Normal Normal 5760397067) BILIRUBIN (test code = Negative Negative 6359322664) NITRITE (test code = Negative Negative 9254693071) LEUK LUIZ (test code = Negative Negative 2592905761) RBC/HPF (test code = See_Comment H [Autom ated message] 9510021076) The system [employer] generated this result transmitted ref erence range: 0 - 3 HP F. The reference range was not used to int erpret this result as normal/abnormal . WBC/HPF (test code = See_Comment [Autom ated message] 8681955312) The system [employer] generated this result transmitted ref erence range: 0 - 5 HP F. The reference range was not used to int erpret this result as normal/abnormal . BACTERIA (test code = Few Negative A 1214063073) MUCOUS (test code = Slight Negative LPF A 9151739756) SQ EPITH (test code = HPF 9002291028) Lab Interpretation (test Abnormal code = 13625-4) [facility] HospitalXR LUMBAR SPINE 2 [id number] 05:43:05 No acute osseous findings or significant degenerative changes. Preliminary Report Dictated by Resident: Job Monae I, Eli Recinos MD., have reviewed this study and agree with theabove report.EXAM: XR LUMBAR SPINE 2 VW HISTORY: low back pain COMPARISON: None TECHNIQUE: Frontal and lateralviews of the lumbar spine were obtained. FINDINGS: There are five lumbar type vertebra identified. The lumbar vertebral bodiesare normal in height and alignment. No significant degenerative changesidentified. The visualized sacroiliac joints and sacral arcuate lines are unremarkable. [facility], Radiant Results Inft User - 12/10/2020 12:44 AM CDT EXAM: XR LUMBAR SPINE 2 VWHISTORY: low back pain COMPARISON: NoneTECHNIQUE: Frontal and lateral views of the lumbar spine were obtained.FINDINGS:There are five lumbar type vertebra identified. The lumbar vertebral bodiesare normal in height and alignment. No significant degenerative changesidentified.The visualized sacroiliac joints and sacral arcuate lines are unremarkable.IMPRESSIONNo acute osseous findings or significant degenerative changes.Preliminary Report Dictated by Resident: Eli Elliott MD., have reviewed this study and agree with theabove report. [facility] [id number] 04:41:00 Test Item Value Reference Range Interpretation Comments POCT PREG (test code = 1605) Negative On board controls acceptable with Present C Line (test code = 3574) POCT PREG LOT # (test code = HCG [id number] [id number]) POCT PREG TEST DATE (test 05/15/2022 code = 3576) Lab Interpretation (test code = Normal 13607-8) [facility] 1 VIEW [id number] 18:30:00 [facility] I : 1985 Sex: F[address] [place] [address]HNSCXHVZDS IMAGING REPORTPatient Name: DONNY SÁNCHEZ of Service: [id number]: 35 Sex: F Order #: [id number] [facility] 1985 [facility] Number: [id number] Record Number: [id number] Hospital Number: [id number] Physician: KI JADEONOrdering Physician: Belkys WALKERam: Chest APHistory: Shortness of breathComparison: No comparison availableFindings: No focal consolidation, pleural effusion or pneumothorax. Thecardiac and superior mediastinal silhouettes are within normal limits.Impression:No acute cardiopulmonary process.Electronically Signed By: Jesse Davalos M.D., 11/16/2020 6:28 PMLegally authenticated by MARYLU LOWE JR 2020-11-16 18:28:06COVID SYMPTOMATIC ER [id number] 17:45:00 Test Item Value Reference Range Interpretation Comments CORONAVIRUS (COVID-19)BY PCR (test NEGATIVE code = [id number]) ISTAT [id number] 17:10:00 Test Item Value Reference Range Interpretation Comments ISTAT HCG (test <5.0 IU/L A value of l ess than or code = ISHCG) equal to <5 IU /L is considered NEGA TIVE A value between 5 IU/L and 25 IU/L is cons idered INDETERMINATE A value of >25 IU/L is con sidered POSITIVE ANKLE 3 [id number] 04:24:00 [facility] I : 1985 [facility] [place], [place] [id number] IMAGING REPORTPatient Name: DONNY SÁNCHEZ of Service: [id number]: 35 Sex: F Order #: [id number] Room: [facility]: 1985 X-Ray Number: [id number] Record Number: [id number] Hospital Number: [id number] Physician: Genia JADEering Physician: HAILE JADEPROCEDURE: ANKLE 3 VIEWSINDICATIONS: Dx: ankle injury pt sts: pt reports falling and twisting herleft anklenohapsv:lsrshielded3 views left ankleComparison: NoneFindings:No fractures or dislocations.There is a small ankle joint effusion.No significant arthritic change. No radiopaque foreign b olesya.Impression:1. No acute bony abnormality involving the left ankle. A small jointeffusion is present.This document has been electronically signed by: Sebastian Rutledge MD 10/08/2020 04:23:50Legally authenticated by NAZIA Kaplan 2020-10-08 02:56:00"
--- NOTE | 2021-08-13 18:00 | ER ---
Nurse's Notes [facility] Name: Dionna Pack Age: 36 yrs Sex: Female : 1985 Arrival Date: 08/13/2021 Time: 17:18 Bed 10 Private MD: Diagnosis: Sprain of ankle;Sprain of calcaneofibular ligament of left ankle Presentation: 08/13 17:35 Chief complaint: Patient states: twisted lt ankle while mopping and having increased [facility] pain with movement. Coronavirus screen: Client denies travel out of the [place] in the last 14 days. Ebola Screen: Patient denies exposure to infectious person. Patient denies travel to an Ebola-affected area in the 21 days before illness onset. Initial Sepsis Screen: Does the patient meet any 2 criteria? No. Patient's initial sepsis screen is negative. Does the patient have a suspected source of infection? No. Patient's initial sepsis screen is negative. Risk Assessment: Do you want to hurt yourself or someone else? Patient reports no desire to harm self or others. Onset of symptoms was August 13, 2021. 17:35 Method Of Arrival: Ambulatory [facility] 17:35 Acuity: CORTES 4 [facility] Triage Assessment: 17:37 General: Appears in no apparent distress. Behavior is calm, cooperative. Pain: [facility] Complains of pain in left lateral ankle Pain currently is 8 out of 10 on a pain scale. Quality of pain is described as throbbing. 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 - Social history:: Smoking status: Patient denies any tobacco usage or history of. Screenin:53 Abuse screen: Denies threats or abuse. Nutritional screening: No deficits noted. lr4 Tuberculosis screening: No symptoms or risk factors identified. Fall Risk None identified. Assessment: 17:52 General: Appears in no apparent distress. comfortable, Behavior is calm, cooperative. lr4 Pain: Complains of pain in left lateral ankle Pain currently is 7 out of 10 on a pain scale. Quality of pain is described as throbbing, Aggravated by weight bearing. Neuro: No deficits noted. Cardiovascular: No deficits noted. Respiratory: No deficits noted. GI: No deficits noted. Musculoskeletal: No deficits noted. Reports pain in left lateral ankle. Vital Signs: 17:35 BP 123 / 83; Pulse 96; Resp 18; Temp 98.0(TE); Pulse Ox 100% ; Weight 72.57 kg; Height 6 5 ft. 0 in. (152.40 cm); Pain 8/10; 17:35 Body Mass Index 31.25 (72.57 kg, 152.40 cm) 6 ED Course: 17:18 Patient arrived in ED. as 17:37 Triage completed. 6 17:37 Arm band placed on right wrist. [facility] 17:39 Nikolas Ladd MD is Attending Physician. [facility] 17:52 Jessica Kim, RN is Primary Nurse. lr4 17:53 No provider procedures requiring assistance completed. lr4 17:57 Patient has correct armband on for positive identification. Door closed. Verbal lr4 reassurance given. 17:58 Alejandro Balderas MD is Referral Physician. [facility] 18:03 Ankle Left 3 View XRAY In Process Unspecified. EDMS 18:11 Patient did not have IV access during this emergency room visit. lr4 Administered Medications: 18:08 Drug: Tylenol 1000 mg Route: PO; lr4 18:08 Follow up: Response: No adverse reaction lr4 Outcome: 17:56 Condition: stable lr4 17:59 Discharge ordered by . kyle 18:11 Discharged to home ambulatory. lr4 18:11 Discharge instructions given to patient. lr4 18:33 Patient left the ED. lr4 Signatures: Dispatcher [employer] EDMN Nikolas Ladd MD MD cha Martinez, Amelia as Hastedt, Jennifer, RN RN [facility] Jessica Kim RN RN lr4
--- NOTE | 2021-08-13 18:00 | EDPHYS ---
Physician Documentation [facility] Name: Dionna Pack Age: 36 yrs Sex: Female : 1985 Arrival Date: 08/13/2021 Time: 17:18 Bed 10 Private MD: ED Physician Nikolas Ladd HPI: 08/13 17:54 This 36 yrs old Female presents to ER via Ambulatory with complaints of Foot kyle Pain. [employer] POLICE: 17:55 5, Living 5, LMP 08/02/2021 lr4 Historical: - Allergies: 17:37 none; jh6 17:37 NSAIDS (Non-Steroidal Anti-Inflammatory Drug); 6 - Home Meds: 17:37 albuterol sulfate Inhl [Active]; 6 - PMHx: 17:37 Asthma; 6 - PSHx: 17:37 ; 6 - Immunization history:: Client reports receiving the 1st dose of the Covid vaccine. - Social history:: Smoking status: Patient denies any tobacco usage or history of. ROS: 17:55 Constitutional: Negative for fever, chills, and weight loss, Eyes: Negative for injury, kyle pain, redness, and discharge, ENT: Negative for injury, pain, and discharge, Neck: Negative for injury, pain, and swelling, Cardiovascular: Negative for chest pain, palpitations, and edema, Respiratory: Negative for shortness of breath, cough, wheezing, and pleuritic chest pain, Abdomen/GI: Negative for abdominal pain, nausea, vomiting, diarrhea, and constipation, Back: Negative for injury and pain, : Negative for injury, bleeding, discharge, and swelling, Skin: Negative for injury, rash, and discoloration, Neuro: Negative for headache, weakness, numbness, tingling, and seizure, Psych: Negative for depression, anxiety, suicide ideation, homicidal ideation, and hallucinations, Allergy/Immunology: Negative for hives, rash, and allergies, Endocrine: Negative for neck swelling, polydipsia, polyuria, polyphagia, and marked weight changes, Hematologic/Lymphatic: Negative for swollen nodes, abnormal bleeding, and unusual bruising. 17:55 MS/extremity: Positive for pain, of the left lateral ankle. Exam: 17:55 Constitutional: This is a well developed, well nourished patient who is awake, alert, kyle and in no acute distress. Head/Face: Normocephalic, atraumatic. Eyes: Pupils equal round and reactive to light, extra-ocular motions intact. Lids and lashes normal. Conjunctiva and sclera are non-icteric and not injected. Cornea within normal limits. Periorbital areas with no swelling, redness, or edema. ENT: Nares patent. No nasal discharge, no septal abnormalities noted. Tympanic membranes are normal and external auditory canals are clear. Oropharynx with no redness, swelling, or masses, exudates, or evidence of obstruction, uvula midline. Mucous membranes moist. Neck: Trachea midline, no thyromegaly or masses palpated, and no cervical lymphadenopathy. Supple, full range of motion without nuchal rigidity, or vertebral point tenderness. No Meningismus. Chest/axilla: Normal chest wall appearance and motion. Nontender with no deformity. No lesions are appreciated. Cardiovascular: Regular rate and rhythm with a normal S1 and S2. No gallops, murmurs, or rubs. Normal PMI, no JVD. No pulse deficits. Respiratory: Lungs have equal breath sounds bilaterally, clear to auscultation and percussion. No rales, rhonchi or wheezes noted. No increased work of breathing, no retractions or nasal flaring. Abdomen/GI: Soft, non-tender, with normal bowel sounds. No distension or tympany. No guarding or rebound. No evidence of tenderness throughout. Back: No spinal tenderness. No costovertebral tenderness. Full range of motion. Pelvic Exam: Normal external genitalia. Speculum exam with closed cervical os, no discharge or bleeding noted. Bimanual exam with normal adnexa, no adnexal or cervical motion tenderness. Normal uterus. Female : Normal external genitalia. Skin: Warm, dry with normal turgor. Normal color with no rashes, no lesions, and no evidence of cellulitis. Neuro: Awake and alert, GCS 15, oriented to person, place, time, and situation. Cranial nerves II-XII grossly intact. Motor strength 5/5 in all extremities. Sensory grossly intact. Cerebellar exam normal. Normal gait. Psych: Awake, alert, with orientation to person, place and time. Behavior, mood, and affect are within normal limits. 17:55 Musculoskeletal/extremity: ROM: full active range of motion, full passive range of motion, Circulation is intact in all extremities. Sensation intact. Compartment Syndrome exam of affected extremity: is normal. DVT Exam: negative Homans' sign noted on exam, no appreciated bluish discoloration, no erythema, no increased warmth, pain, swelling, tenderness. Vital Signs: 17:35 BP 123 / 83; Pulse 96; Resp 18; Temp 98.0(TE); Pulse Ox 100% ; Weight 72.57 kg; Height jh6 5 ft. 0 in. (152.40 cm); Pain 8/10; 17:35 Body Mass Index 31.25 (72.57 kg, 152.40 cm) jh6 MDM: 17:39 Patient medically screened. kyle 17:57 Data reviewed: vital signs, nurses notes, radiologic studies, plain films. Data kyle interpreted: monitoring specialist: not applicable for this patient encounter. rate is 96 beats/min, rhythm is regular, Pulse oximetry: on room air is 100 %. Test interpretation: by ED physician or midlevel provider: plain radiologic studies. Counseling: I had a detailed discussion with the patient and/or guardian regarding: the historical points, exam findings, and any diagnostic results supporting the discharge/admit diagnosis, lab results, radiology results. 08/13 17:50 Order name: Ankle Left 3 View XRAY bd 08/13 17:53 Order name: Sonido wrap-joint; Complete Time: 18:08 kyle 08/13 17:53 Order name: Ice pack; Complete Time: 18:08 kyle Administered Medications: 18:08 Drug: Tylenol 1000 mg Route: PO; lr4 18:08 Follow up: Response: No adverse reaction lr4 Disposition Summary: 08/13/21 17:59 Discharge Ordered Location: Home kyle Problem: new kyle Symptoms: have improved kyle Condition: Stable kyle Diagnosis - Sprain of ankle kyle - Sprain of calcaneofibular ligament of left ankle kyle Followup: kyle - With: Private Physician - When: 2 - 3 days - Reason: Recheck today's complaints, Continuance of care, Re-evaluation by your physician Followup: kyle - With: Alejandro Balderas MD - When: 2 - 3 days - Reason: Recheck today's complaints, Continuance of care, Re-evaluation by your physician Discharge Instructions: - Discharge Summary Sheet kyle - Ankle Sprain kyle - Ankle Pain kyle Forms: - Medication Reconciliation Form kyle - Thank You Letter kyle - Antibiotic Education kyle - Prescription Opioid Use kyle Prescriptions: - Tylenol 325 mg Oral Tablet - take 2 tablets by ORAL route every 6 hours as needed; 1 bottle; Refills: 0, kyle Product Selection Permitted Signatures: Dispatcher [employer] Nikolas Berrios MD MD cha Hastedt, Jennifer RN RN jh6 Jessica Kim RN RN lr4
[2021-08-13] MEDS ORDERED: ACETAMINOPHEN 500 MG TAB ONE (18:05)
--- NOTE | 2021-08-13 18:12 | RAD REPORT ---
EXAM DESCRIPTION: RAD - Ankle Left 3 View -08/13/2021 6:03 pm CLINICAL HISTORY: Left ankle pain FINDINGS: No fracture or dislocation is seen.
[2021-08-13 19:01] VITALS: BP 123/83; TEMP 98; O2SAT 100
== END 2021-08-13 18:33 | disposition home or self-care (01) ==
LOC: ER 17:15
DX: S93.412A Sprain of calcaneofibular ligament of left ankle, initial encounter (principal); Z88.6 Allergy status to analgesic agent
CPT/HCPCS: 99283

== ENCOUNTER 2022-02-19 18:35 | Emergency (ER) | payer SELFPAY ==
--- OUTSIDE RECORDS SUMMARY | 2022-02-19 19:08 | XMS REPORT | Continuity of Care Document ---
:1985 Author Organization [facility] t Address [address] [place] [address] Care Team Providers Name Role Phone PCP, PATIENT DOES NOT HAVE A Primary Care Physician UnavailPETTY Noel Attending Clinician Unavailable Brandon Rapp MD Attending Clinician Petty Man Attending Clinician BRANDON RAPP Attending Clinician Unavailable JOYCE BELLO Attending Clinician Unavailable Joyce Bello DO Attending Clinician KADEEM ANDERSON Attending Clinician Unavailable Kadeem Nolen Attending Clinician NELSON JONES Attending Clinician Unavailable Nelson Sebastian Attending Clinician Ashley Marrero Attending Clinician ASHLEY HOFFMAN Attending Clinician Unavailable Isabelle Griggs RN Attending Clinician Unavailable Doctor Unassigned, [place] Attending Clinician Unavailable Bar Delgadillo Attending Clinician Cassandra Colindres Attending Clinician CASSANDRA CASH Attending Clinician Unavailable Hammad Adler Attending Clinician HAMMAD CASTELLANOS Attending Clinician Unavailable HAILE JADE Attending Clinician Unavailable PETTY BAILEY Admitting Clinician Unavailable BRANDON RAPP Admitting Clinician Unavailable JOYCE BELLO Admitting Clinician Unavailable KADEEM ANDERSON Admitting Clinician Unavailable NELSON JONES Admitting Clinician Unavailable ASHLEY HOFFMAN Admitting Clinician Unavailable HAILE JADE Admitting Clinician Unavailable Payers Payer Name Policy Type Policy Number Effective Date Expiration Date S ource MEDICAID ALIEN PENDING 2021 2021 PENDING 00:00:00 00:00:00 Problems Condition Condition Condition Status Onset Resolution Last Treating Co mments Source Name Details Category Date Date Treatment Clinician Date Contracept Contracept Disease Active U nivers spike spike 5-05 [place]y of management [place] [facility] Depo Depo Disease Active Univers contracept contracept 5-05 it y of ion ion 00:00: [address] Branch History of History of Disease Active U nivers tubal tubal 5-05 ity of ligation ligation 00:00: [place] 00 [facility] Branch Heavy Heavy Disease Active Univers menses menses 5-05 ity of 00:00: [place] 00 [facility] Branch Morbid Morbid Disease Active Univers obesity obesity 5-05 ity of 00:00: [place] 00 Medical Branch Dysmenorrh Dysmenorrh Disease Active U nivers ea ea 5-05 ity of 00:00: [place] 00 [facility] Allergies, Adverse Reactions, Alerts Allergy Allergy Status [...] Hospita Allergie Allergy 02:53: l s 30 ([facility] No known Miscella Active U Not [facility] drug neous Specified 10-08 Hospita Allergie Allergy 02:53: l s 30 ([facility]) No known Miscella Active U Not [facility]is t drug neous Specified 10-08 Hospita Allergie Allergy 02:53: l s 30 ([facility]) No known Miscella Active U Not Baptis t drug neous Specified 4- Hospita Allergie Allergy 02:53: l s 30 ([facility]) No known Miscella Active U Not Baptis t drug neous Specified 10-08 Hospita Allergie Allergy 02:53: l s 30 ([facility]) No known Miscella Active U Not Baptis t drug neous Specified 10-08 Hospita Allergie Allergy 02:53: l s 30 ([facility]) No Known NA Active [place] Allergie 10-08 Hospita s 02:53: l 22 ([facility]) NO KNOWN Drug Active Univers ALLERGIE Class ity of S [facility] Social History Social Habit Start Date Stop Date Quantity Comments Source Exposure to 2022-01-16 2022-01-26 Not sure [facility]-2 00:00:00 16:07:00 [facility] (event) [place] Alcohol intake 2022-01-26 2022-01-26 0 /d [facility] 00:00:00 00:00:00 [facility] Tobacco use and 2016-01-17 2016-01-17 Smokeless tobacco Un iversity of exposure 00:00:00 00:00:00 non-user [facility] Sex [birth year] Universit y of 00:00:00 00:00:00 [facility] Smoking Status Start Date Stop Date Source Never smoked tobacco [facility] Medications Ordered Filled Start Stop Current Ordering Indication Dosage Frequency Signature Comments Components Source Medication Medication Date Date Medication? Clinician (SIG) Name Name acetaminoph No 1000mg 1,000 mg, Univers en 01-26 Oral, ity of (TYLENOL) 23:00: 21:54 [place]CE, [place] 00 :[place] dose, On Medical 1,000 mg Sat Branch 01/26/22 at 1800, Routine ibuprofen 2021-0 Yes [id number] 600mg Take 1 Univers 600 mg 6-10 [id number] tablet by ity of tablet 00:00: mouth [place] 00 every 6 Medical (six) Branch hours as needed for Pain (scale 4-6). ibuprofen Yes [id number] 600mg Take 1 Univers 600 mg 6-10 [id number] tablet by ity of tablet 00:00: mouth [place] 00 every 6 Medical (six) Branch hours as needed for Pain (scale 4-6). ibuprofen 2021- No 800mg 800 mg, Uni vers (IBU) 09-25 Oral, ity of tablet 800 00:45: 23:53 ONCE, 1 [place] mg 00 :00 dose, On Medical Mon Branch 09/24/21 at 1945, ÁNGEL traMADoL 50 0 Yes [id number] 50mg Take 1 Univ ers mg tablet 4-11 tablet by ity o f 00:00: mouth [place] 00 every 8 Medical (eight) Branch hours as needed for Pain (scale 7-10). Indication s: acute pain ibuprofen 0 Yes [id number] 600mg Take 1 U nivers 600 mg 4-11 tablet by ity of tablet 00:00: mouth [place] 00 every 6 Medical (six) Branch hours as needed for Pain (scale 4-6). traMADoL 50 2021-0 Yes [id number] 50mg Take 1 Univ ers mg tablet 4-11 tablet by ity o f 00:00: mouth [place] 00 every 8 Medical (eight) Branch hours as needed for Pain (scale 7-10). Indication s: acute pain ibuprofen 2021-0 Yes [id number] 600mg Take 1 U nivers 600 mg 4-11 tablet by ity of tablet 00:00: mouth [place] 00 every 6 Medical (six) Branch hours as needed for Pain (scale 4-6). traMADoL 50 2021-0 Yes [id number] 50mg Take 1 Univ ers mg tablet 4-11 tablet by ity o f 00:00: mouth [place] 00 every 8 Medical (eight) Branch hours as needed for Pain (scale 7-10). Indication s: acute pain ibuprofen 2021-0 Yes [id number] 600mg Take 1 U nivers 600 mg 4-11 tablet by ity of tablet 00:00: mouth [place] 00 every 6 Medical (six) Branch hours as needed for Pain (scale 4-6). traMADoL 50 2021-0 Yes [id number] 50mg Take 1 Univ ers mg tablet 4-11 tablet by ity o f 00:00: mouth [place] 00 every 8 Medical (eight) Branch hours as needed for Pain (scale 7-10). Indication s: acute pain ibuprofen 2021-0 Yes [id number] 600mg Take 1 U nivers 600 mg 4-11 tablet by ity of tablet 00:00: mouth [place] 00 every 6 Medical (six) Branch hours as needed for Pain (scale 4-6). NaCl 0.9% 0 2021- No 1000mL at 999 Uni vers (NS) bolus -05 03-05 mL/hr, ity of infusion 13:30: 13:46 1,000 mL, [place] 1,000 mL 00 :00 IV Medical Infusion, Branch ONCE, 1 dose, On 08/18/21 at 0730, ÁNGEL ondansetron 2021-0 2021- No 4mg 4 mg, Slow Univers (ZOFRAN 3-05 03-05 IV Push, ity of (PF)) 13:15: 12:12 ONCE, 1 [place] injection 4 00 :00 dose, On Medi yevgeniy mg 08/18/21 Branch at 0715, ÁNGEL ondansetron 2021-0 Yes [id number] 4mg Take 1 Univers 4 mg 3-05 tablet by ity of disintegrat 00:00: mouth [place] ing tablet 00 every 8 Medica l (eight) Branch hours as needed for Nausea and Vomiting (N/V). ondansetron 2021-0 Yes [id number] 4mg Take 1 Univers 4 mg 3-05 tablet by ity of disintegrat 00:00: mouth [place] ing tablet 00 every 8 Medica l (eight) Branch hours as needed for Nausea and Vomiting (N/V). ondansetron 2021-0 Yes [id number] 4mg Take 1 Univers 4 mg 3-05 tablet by ity of disintegrat 00:00: mouth [place] ing tablet 00 every 8 Medica l (eight) Branch hours as needed for Nausea and Vomiting (N/V). ondansetron Yes [id number] 4mg Take 1 Univers 4 mg 3-05 tablet by ity of disintegrat 00:00: mouth [place] ing tablet 00 every 8 Medica l (eight) Branch hours as needed for Nausea and Vomiting (N/V). ondansetron Yes [id number] 4mg Take 1 Univers 4 mg 3-05 tablet by ity of disintegrat 00:00: mouth [place] ing tablet 00 every 8 Medica l (eight) Branch hours as needed for Nausea and Vomiting (N/V). ibuprofen 2021- No 600mg 600 mg, Uni vers (IBU) 06-23 Oral, ity of tablet 600 00:15: 23:27 ONCE, 1 [place] mg 00 :00 dose, On Medical 06/22/21 Branch at 1815, ÁNGEL ibuprofen Yes [id number] 600mg Take 1 Univers 600 mg 06-22 [id number] tablet by ity of tablet 00:00: mouth [place] 00 every 6 Medical (six) Branch hours as needed for Pain (scale 4-6). ibuprofen 2021- No [id number] 600mg Take 1 Univers 600 mg 06-22- [id number] tablet by ity o f tablet 00:00: 00:00 mouth [place] 00 :00 every 6 Medical (six) Branch hours as needed for Pain (scale 4-6). ibuprofen 2020-06 No 600mg 600 mg, Uni vers (IBU) 2 1203 Oral, ity of tablet 600 00:30: 23:25 ONCE, 1 [place] mg 00 :00 dose, On Medical Fri Branch 05/18/21 at 1830, ÁNGEL HYDROcodone 2020- No 1{tbl} 1 tablet, Univers -acetaminop 03-03 Oral, ity of hen (NORCO 23:30: 22:20 ONCE, 1 [place] 5) 5-325 mg 00 :00 dose, On Medi yevgeniy tablet 1 Sat Branch tablet 03/03/21 at 1830, ÁNGEL HYDROcodone 2020- No 1{tbl} 1 tablet, Univers -acetaminop 03-03- Oral, ity of hen (NORCO 23:30: 22:20 ONCE, 1 [place] 5) 5-325 mg 00 :00 dose, On Medi yevgeniy tablet 1 Sat Branch tablet 03/03/21 at 1830, ÁNGEL ibuprofen 2020-0 2020- No 800mg 800 mg, Uni vers (IBU) 8- 08-10 Oral, ity of tablet 800 04:30: 03:40 ONCE, 1 [place] mg 00 :00 dose, Mon Medical 01/22/21 at Branch 2330, ÁNGEL ibuprofen 2020-0 Yes [id number] 800mg Take 1 Univers 800 mg 8-09 tablet by ity of tablet 00:00: mouth [place] 00 every 8 Medical (eight) Branch hours as needed for Pain (scale 4-6). ibuprofen 2020-0 Yes [id number] 800mg Take 1 Univers 800 mg 8-09 tablet by ity of tablet 00:00: mouth [place] 00 every 8 Medical (eight) Branch hours as needed for Pain (scale 4-6). ibuprofen 2020-0 Yes [id number] 800mg Take 1 Univers 800 mg 8-09 tablet by ity of tablet 00:00: mouth [place] 00 every 8 Medical (eight) Branch hours as needed for Pain (scale 4-6). ibuprofen 2020-0 Yes [id number] 800mg Take 1 Univers 800 mg 8-09 tablet by ity of tablet 00:00: mouth [place] 00 every 8 Medical (eight) Branch hours as needed for Pain (scale 4-6). ibuprofen 2020-0 Yes [id number] 800mg Take 1 Univers 800 mg 8-09 tablet by ity of tablet 00:00: mouth [place] 00 every 8 Medical (eight) Branch hours as needed for Pain (scale 4-6). ibuprofen 2020-0 2021- No [id number] 800mg Take 1 Univers 800 mg 8-09 03-05 tablet by ity of tablet 00:00: 00:00 mouth [place] 00 :00 every 8 Medical (eight) Branch hours as needed for Pain (scale 4-6). acetaminoph 2020-0 2020- No [id number] 1{tbl} Take 1 U [...] as 2 % viscous 00 :00 dose, [facility] Med ical 1:1:1 01/08/21 at [place] (FIRST-MOUT 1300, HWASH BLM) Routine oral suspension 15 mL famotidine 2020- No 20mg 20 mg, Univ ers (PEPCID 01-08 Slow IV ity of (PF)) 18:00: 16:59 Push, [place] injection 00 :00 ONCE, 1 Medical 20 mg dose, [facility] 01/08/21 at 1300, Routine metoclopram No 10mg 10 mg, Uni vers luke HCl 01-08 Slow IV ity of (REGLAN) 18:00: 16:59 Push, [place] injection 00 :00 ONCE, 1 Medical 10 mg dose, [facility] 01/08/21 at 1300, ÁNGEL NaCl 0.9% 2020- No 1000mL at 999 Uni vers (NS) bolus 01-08 mL/hr, ity of infusion 18:00: 18:06 1,000 mL, [place] 1,000 mL 00 :00 IV Medical Piggyback, [place] ONCE, 1 dose, [facility] 01/08/21 at 1300, STAT metoclopram 2020-0 Yes [id number] 10mg Take 1 Univers luke HCl 10 7-26 tablet by ity of mg tablet 00:00: mouth [place] 00 every 6 Medical (six) Branch hours as needed for Nausea and Vomiting (N/V). metoclopram 2020-0 Yes [id number] 10mg Take 1 Univers luke HCl 10 7-26 tablet by ity of mg tablet 00:00: mouth [place] 00 every 6 Medical (six) Branch hours as needed for Nausea and Vomiting (N/V). metoclopram 2021-0 Yes [id number] 10mg Take 1 Univers luke HCl 10 7-26 tablet by ity of mg tablet 00:00: mouth [place] 00 every 6 Medical (six) Branch hours as needed for Nausea and Vomiting (N/V). metoclopram 2020-0 Yes [id number] 10mg Take 1 Univers luke HCl 10 7-26 tablet by ity of mg tablet 00:00: mouth [place] 00 every 6 Medical (six) Branch hours as needed for Nausea and Vomiting (N/V). metoclopram 2020-0 Yes [id number] 10mg Take 1 Univers luke HCl 10 7-26 tablet by ity of mg tablet 00:00: mouth [place] 00 every 6 Medical (six) Branch hours as needed for Nausea and Vomiting (N/V). metoclopram 2020-0 Yes [id number] 10mg Take 1 Univers luke HCl 10 7-26 tablet by ity of mg tablet 00:00: mouth [place] 00 every 6 Medical (six) Branch hours as needed for Nausea and Vomiting (N/V). metoclopram 2020-0 Yes [id number] 10mg Take 1 Univers luke HCl 10 7-26 tablet by ity of mg tablet 00:00: mouth [place] 00 every 6 Medical (six) Branch hours as needed for Nausea and Vomiting (N/V). metoclopram 2020-0 Yes [id number] 10mg Take 1 Univers luke HCl 10 7-26 tablet by ity of mg tablet 00:00: mouth [place] 00 every 6 Medical (six) Branch hours as needed for Nausea and Vomiting (N/V). metoclopram 0 2021- No [id number] 10mg Take 1 Univers luke HCl 10 7-26 03-05 tablet by ity of mg tablet 00:00: 00:00 mouth [place] 00 :00 every 6 Medical (six) Branch hours as needed for Nausea and Vomiting (N/V). ondansetron 2020-0 2020- No 4mg 4 mg, Univ ers (ZOFRAN-ODT 01-06-24 Oral, ity of ) 07:30: 06:42 ONCE, 1 [place] disintegrat 00 :00 dose, Sat Med ical ing tablet 01/06/21 at [facility] 4 mg 0230, Routine ondansetron 2020-0 Yes [id number] 4mg Take 1 Univers 4 mg 7-24 tablet by ity of disintegrat 00:00: mouth [place] ing tablet 00 every 12 Medic al (twelve) Branch hours as needed for Nausea and Vomiting (N/V). ondansetron 2020-0 Yes [id number] 4mg Take 1 Univers 4 mg 7-24 tablet by ity of disintegrat 00:00: mouth [place] ing tablet 00 every 12 Medic al (twelve) Branch hours as needed for Nausea and Vomiting (N/V). ondansetron 1-0 Yes [id number] 4mg Take 1 Univers 4 mg 7-24 tablet by ity of disintegrat 00:00: mouth [place] ing tablet 00 every 12 Medic al (twelve) Branch hours as needed for Nausea and Vomiting (N/V). ondansetron 1-0 Yes [id number] 4mg Take 1 Univers 4 mg 7-24 tablet by ity of disintegrat 00:00: mouth [place] ing tablet 00 every 12 Medic al (twelve) Branch hours as needed for Nausea and Vomiting (N/V). ondansetron 2020-0 Yes [id number] 4mg Take 1 Univers 4 mg 7-24 tablet by ity of disintegrat 00:00: mouth [place] ing tablet 00 every 12 Medic al (twelve) Branch hours as needed for Nausea and Vomiting (N/V). ondansetron 2020-0 Yes [id number] 4mg Take 1 Univers 4 mg 7-24 tablet by ity of disintegrat 00:00: mouth [place] ing tablet 00 every 12 Medic al (twelve) Branch hours as needed for Nausea and Vomiting (N/V). ondansetron 2020-0 Yes [id number] 4mg Take 1 Univers 4 mg 7-24 tablet by ity of disintegrat 00:00: mouth [place] ing tablet 00 every 12 Medic al (twelve) Branch hours as needed for Nausea and Vomiting (N/V). ondansetron 2020-0 Yes [id number] 4mg Take 1 Univers 4 mg 7-24 tablet by ity of disintegrat 00:00: mouth [place] ing tablet 00 every 12 Medic al (twelve) Branch hours as needed for Nausea and Vomiting (N/V). ondansetron 1-0 Yes [id number] 4mg Take 1 Univers 4 mg 7-24 tablet by ity of disintegrat 00:00: mouth [place] ing tablet 00 every 12 Medic al (twelve) Branch hours as needed for Nausea and Vomiting (N/V). ondansetron 2021-0 2022- No [id number] 4mg Take 1 Univers 4 mg 7-24 03-05 tablet by ity of disintegrat 00:00: 00:00 [place] tablet 00 :00 every 12 Medic al (twelve) Branch hours as needed for Nausea and Vomiting (N/V). traMADoL 2020-2020- No 50mg 50 mg, Univer s (ULTRAM) 01-01 Oral, ity of tablet 50 01:45: 00:45 ONCE, 1 [place] mg 00 :00 dose, [place] [facility] 12/31/20 at Branch 2044, Routine traMADoL [...] 7-10). Indication s: acute pain traMADoL 50 2021-0 Yes [id number] 50mg Take 1 Univ ers mg tablet 7-18 tablet by ity o f 00:00: mouth [place] 00 every 6 Medical (six) Branch hours as needed for Pain (scale 7-10). Indication s: acute pain traMADoL 50 0 Yes [id number] 50mg Take 1 Univ ers mg tablet 7-18 tablet by ity o f 00:00: mouth [place] 00 every 6 Medical (six) Branch hours as needed for Pain (scale 7-10). Indication s: acute pain traMADoL 50 Yes [id number] 50mg Take 1 Univ ers mg tablet 7-18 tablet by ity o f 00:00: mouth [place] 00 every 6 Medical (six) Branch hours as needed for Pain (scale 7-10). Indication s: acute pain traMADoL 50 2021- No [id number] 50mg Take 1 Uni vers mg tablet 7-18 03-05 tablet by ity of 00:00: 00:00 mouth [place] 00 :00 every 6 Medical (six) Branch [...] 00 :00 1 dose, Medica l injection [place] Branch 10 mg 12/10/20 at 0100, STAT ketorolac 2020- No 30mg 30 mg, Unive rs (TORADOL) 12-10 Intramuscu ity of injection 06:00: 05:26 [place], ONCE, [place] 30 mg 00 :00 1 dose, Medical [place] 12/10/20 at 0100, ÁNGEL
Fa culty member approving Restricted medication : SIMBA CAMPOS ibuprofen Yes [id number] 800mg Take 1 Univers 800 mg -27 tablet by ity of tablet 00:00: mouth [place] 00 every 8 Medical (eight) Branch hours as needed for Pain (scale 4-6). ibuprofen 2021-0 Yes [id number] 800mg Take 1 Univers 800 mg 6-27 tablet by ity of tablet 00:00: mouth [place] 00 every 8 Medical (eight) Branch hours as needed for Pain (scale 4-6). ibuprofen 2021-0 Yes [id number] 800mg Take 1 Univers 800 mg 6-27 tablet by ity of tablet 00:00: mouth [place] 00 every 8 Medical (eight) Branch hours as needed for Pain (scale 4-6). ibuprofen 2021-0 Yes [id number] 800mg Take 1 Univers 800 mg 6-27 tablet by ity of tablet 00:00: mouth [place] 00 every 8 Medical (eight) Branch hours as needed for Pain (scale 4-6). ibuprofen 2021-0 Yes [id number] 800mg Take 1 Univers 800 mg 6-27 tablet by ity of tablet 00:00: mouth [place] 00 every 8 Medical (eight) Branch hours as needed for Pain (scale 4-6). ibuprofen 2021-0 Yes [id number] 800mg Take 1 Univers 800 mg 6-27 tablet by ity of tablet 00:00: mouth [place] 00 every 8 Medical (eight) Branch hours as needed for Pain (scale 4-6). ibuprofen 2021-0 Yes [id number] 800mg Take 1 Univers 800 mg 6-27 tablet by ity of tablet 00:00: mouth [place] 00 every 8 Medical (eight) Branch hours as needed for Pain (scale 4-6). ibuprofen 2021-0 Yes [id number] 800mg Take 1 Univers 800 mg 6-27 tablet by ity of tablet 00:00: mouth [place] 00 every 8 Medical (eight) Branch hours as needed for Pain (scale 4-6). ibuprofen 2021-0 Yes [id number] 800mg Take 1 Univers 800 mg 6-27 tablet by ity of tablet 00:00: mouth [place] 00 every 8 Medical (eight) Branch hours as needed for Pain (scale 4-6). ibuprofen 2021-0 Yes [id number] 800mg Take 1 Univers 800 mg 6-27 tablet by ity of tablet 00:00: mouth [place] 00 every 8 Medical (eight) Branch hours as needed for Pain (scale 4-6). ibuprofen 2021-0 Yes [id number] 800mg Take 1 Univers 800 mg 6-27 tablet by ity of tablet 00:00: mouth [place] 00 every 8 Medical (eight) Branch hours as needed for Pain (scale 4-6). ibuprofen 2021- No [id number] 800mg Take 1 Univers 800 mg 6-27 03-05 tablet by ity of tablet 00:00: 00:00 mouth [place] 00 :00 every 8 Medical (eight) Branch hours as needed for Pain (scale 4-6). methocarbam 2020- No [id number] 750mg Take 1 Univers oL 6-27 07-18 tablet by ity of (ROBAXIN-75 00:00: 04:59 mouth 4 [place] 0) 750 mg 00 :00 (four) Medical tablet times Branch daily as needed for Pain (scale 7-10) for up to 20 days. predniSONE 2020- No [id number] 60mg Take 3 Univers 20 mg 6-27 07-03 tablets by ity of tablet 00:00: 04:59 mouth [place] 00 :00 every Medical morning Branch for 5 days. traMADOL 2014-0 Yes 50mg Take 1 Tab Uni vers [...] needed for Pain (scale 7-10). traMADOL 2015-0 2021- No 50mg Take 1 Tab Un nicci (ULTRAM) 50 9-01 03-05 by mouth ity of mg tablet 00:00: 00:00 every 6 [place] 00 :00 (six) Medical hours as Branch needed for [...] Branch hours as needed for Pain. hydrocodone 2021- No 1{tbl} Take 1-2 Univers -acetaminop 8-25 03-05 Tabs by ity of hen (NORCO 00:00: 00:00 mouth [place] 5) 5-325 mg 00 :00 every 6 Medic al tablet (six) Branch [...] Yes 150mg Take 1 Tab Univers (ZANTAC) 01-04 by mouth 2 ity o f 150 mg 00:00: (two) [place] tablet 00 times Medical daily. Branch hydrocodone No 1{tbl} Take 1 Tab Univers -acetaminop 01-04 by mouth ity of hen (NORCO 00:00: 00:00 every 4 [place] 5) 5-325 mg 00 :00 (four) Medica l tablet hours as Branch needed for Pain. proMETHazin No 25mg Take 1 Tab Univers e 01-04 by mouth ity of (PHENERGAN) 00:00: 00:00 every 6 [place] 25 mg 00 :00 (six) Medical tablet hours as Branch needed for Nausea and Vomiting. ranitidine No 150mg Take 1 Tab Univers (ZANTAC) 01-04 by mouth 2 ity of 150 mg 00:00: 00:00 (two) [place] tablet 00 :00 times Medical daily. Branch Immunizations Ordered Filled Immunization Date Status Comments [facility] e Immunization Name Name TDAP 2015-10-19 Completed University of 00:00:00 [facility] TDAP 2015-10-19 Completed University of 00:00:00 [facility] TDAP 2015-10-19 Completed University of 00:00:00 [facility] TDAP 2015-10-19 Completed University of 00:00:00 [facility] TDAP 2015-10-19 Completed University of 00:00:00 [facility] TDAP 2015-10-19 Completed University of 00:00:00 [facility] TDAP 2015-10-19 Completed University of 00:00:00 [facility] TDAP 2015-10-19 Completed University of 00:00:00 [facility] TDAP 2015-10-19 Completed University of 00:00:00 [facility] TDAP 2015-10-19 Completed University of 00:00:00 [facility] TDAP 2015-10-19 Completed University of 00:00:00 [facility] TDAP 2015-10-19 Completed University of 00:00:00 [facility] TDAP 2015-10-19 Completed University of 00:00:00 [facility] TDAP 2015-10-19 Completed University of 00:00:00 [facility] TDAP 2015-10-19 Completed University of 00:00:00 [facility] TDAP 2015-10-19 Completed University of 00:00:00 [facility] Vital Signs Vital Name Observation Time Observation Value Comments Source Systolic blood 2022-01-26 21:11:00 131 mm[Hg] Univer sity of pressure [place] [facility] Diastolic blood 2022-01-26 21:11:00 93 mm[Hg] Unive rsity of pressure [place] [facility] Heart rate 2022-01-26 21:11:00 78 /min Universi ty of [place] [facility] Body temperature 2022-01-26 21:11:00 36.61 [place] Univ ersity of [place] [facility] Respiratory rate 2022-01-26 21:11:00 16 /min Univ ersity of [place] [facility] Body height 2022-01-26 21:11:00 152.4 cm Universi ty of [place] [facility] Body weight 2022-01-26 21:11:00 88.542 kg Universi ty of [place] [facility] BMI 2022-01-26 21:11:00 38.12 kg/m2 Universi ty of [place] [facility] Oxygen saturation in 2022-01-26 21:11:00 98 /min University of Arterial blood by [place] [employer] yevgeniy Pulse oximetry Branch Systolic blood 2021-11-23 21:11:00 140 mm[Hg] Univer sity of pressure [place] [facility] Diastolic blood 2021-11-23 21:11:00 91 mm[Hg] Unive rsity of pressure [place] [facility] Heart rate 2021-11-23 21:11:00 97 /min Universi ty of [place] [facility] Body temperature 2021-11-23 21:11:00 36.56 [place] Univ ersity of [place] [facility] Respiratory rate 2021-11-23 21:11:00 18 /min Univ ersity of [place] [facility] Body weight 2021-11-23 21:11:00 77.111 kg Universi ty of [place] [facility] BMI 2021-11-23 21:11:00 33.20 kg/m2 Universi ty of [place] [facility] Oxygen saturation in 2021-11-23 21:11:00 99 /min University of Arterial blood by [place] [employer] yevgeniy Pulse oximetry Branch Systolic blood 2021-09-26 21:12:00 142 mm[Hg] Univer sity of pressure [place] [facility] Diastolic blood 2021-09-26 21:12:00 101 mm[Hg] Unive rsity of pressure [place] [facility] Heart rate 2021-09-26 21:12:00 97 /min Universi ty of [place] [facility] Body temperature 2021-09-26 21:12:00 36.11 [place] Univ ersity of [place] [facility] Respiratory rate 2021-09-26 21:12:00 18 /min Univ ersity of [place] [facility] Body weight 2021-09-26 21:12:00 77.111 kg Universi ty of [place] [facility] BMI 2021-09-26 21:12:00 33.20 kg/m2 [facility]i ty [facility] [place] [facility] Oxygen saturation in 2021-09-26 21:12:00 99 /min University of Arterial blood by [facility] yevgeniy Pulse oximetry Branch Systolic blood 2021-09-25 01:00:00 147 mm[Hg] [facility] Diastolic blood 2021-09-25 01:00:00 92 mm[Hg] [facility] Heart rate 2021-09-25 01:00:00 84 /min [facility] Respiratory rate 2021-09-25 01:00:00 18 /min [facility] Oxygen saturation in 2021-09-25 01:00:00 98 /min University of Arterial blood by [facility] Pulse oximetry Branch Body temperature 2021-09-24 23:39:00 36.67 [place] [facility] Body height 2021-09-24 23:39:00 152.4 cm [facility] Body weight 2021-09-24 23:39:00 77.111 kg [facility] BMI 2021-09-24 23:39:00 33.20 kg/m2 [facility] Systolic blood 2021-08-18 13:06:00 127 mm[Hg] [facility] Diastolic blood 2021-08-18 13:06:00 77 mm[Hg] [facility] Heart rate 2021-08-18 13:06:00 102 /min [facility] Respiratory rate 2021-08-18 13:06:00 20 /min [facility] Oxygen saturation in 2021-08-18 13:06:00 98 /min [facility] Arterial blood by [facility] Pulse oximetry Branch Body temperature 2021-08-18 11:55:00 37.61 [place] [facility] Body height 2021-08-18 11:55:00 152.4 cm [facility] Body weight 2021-08-18 11:55:00 76.658 kg [facility] BMI 2021-08-18 11:55:00 33.01 kg/m2 [facility] Systolic blood 2021-06-22 22:36:00 121 mm[Hg] [facility] Diastolic blood 2021-06-22 22:36:00 86 mm[Hg] [facility] Heart rate 2021-06-22 22:36:00 98 /min [facility] Body temperature 2021-06-22 22:36:00 36.78 [place] [facility] Respiratory rate 2021-06-22 22:36:00 19 /min [facility] Body height 2021-06-22 22:36:00 149.9 cm [facility] Body weight 2021-06-22 22:36:00 85.73 kg [facility] BMI 2021-06-22 22:36:00 38.17 kg/m2 [facility] Oxygen saturation in 2021-06-22 22:36:00 100 /min [facility] Arterial blood by [facility] Pulse oximetry Branch Systolic blood 2021-05-18 23:09:00 133 mm[Hg] [facility] Diastolic blood 2021-05-18 23:09:00 86 mm[Hg] [facility] Heart rate 2021-05-18 23:09:00 100 /min [facility] Body temperature 2021-05-18 23:09:00 36.83 [place] [facility] Respiratory rate 2021-05-18 23:09:00 16 /min [facility] Body height 2021-05-18 23:09:00 152.4 cm [facility] Body weight 2021-05-18 23:09:00 85.73 kg [facility] BMI 2021-05-18 23:09:00 36.91 kg/m2 [facility] Oxygen saturation in 2021-05-18 23:09:00 97 /min [facility] Arterial blood by [facility] Pulse oximetry Branch Systolic blood 2021-03-03 22:11:00 141 mm[Hg] [facility] Diastolic blood 2021-03-03 22:11:00 85 mm[Hg] [facility] Heart rate 2021-03-03 22:11:00 97 /min [facility] Body temperature 2021-03-03 22:11:00 37.11 [place] [facility] Respiratory rate 2021-03-03 22:11:00 16 /min [facility] Body height 2021-03-03 22:11:00 152.4 cm [facility] Body weight 2021-03-03 22:11:00 68.04 kg [facility] BMI 2021-03-03 22:11:00 29.29 kg/m2 [facility] Oxygen saturation in 2021-03-03 22:11:00 97 /min [facility] Arterial blood by [facility] Pulse oximetry Branch Systolic blood 2021-01-23 03:39:00 126 mm[Hg] [facility] Diastolic blood 2021-01-23 03:39:00 91 mm[Hg] [facility] Heart rate 2021-01-23 03:39:00 89 /min [facility] Respiratory rate 2021-01-23 03:39:00 16 /min [facility] [place] [facility] Oxygen saturation in 2021-01-23 03:39:00 98 /min [facility] Arterial blood by [facility] Pulse oximetry Branch Body temperature 2021-01-23 01:34:00 37.67 [place] [facility] [place] [facility] Body height 2021-01-23 01:34:00 152.4 cm [facility] Body weight 2021-01-23 01:34:00 68.04 kg [facility] BMI 2021-01-23 01:34:00 29.29 kg/m2 [facility] Systolic blood 2021-01-23 03:39:00 126 mm[Hg] [facility] Diastolic blood 2021-01-23 03:39:00 91 mm[Hg] [facility] Heart rate 2021-01-23 03:39:00 89 /min [facility] [place] [facility] Respiratory rate 2021-01-23 03:39:00 16 /min [facility] [place] [facility] Oxygen saturation in 2021-01-23 03:39:00 98 /min [facility] [place] blood by [place] [employer] yevgeniy Pulse oximetry Branch Body temperature 2021-01-23 01:34:00 37.67 [place] [facility] [place] [facility] Body height 2021-01-23 01:34:00 152.4 cm [facility] [place] [facility] Body weight 2021-01-23 01:34:00 68.04 kg [facility] [place] [facility] BMI 2021-01-23 01:34:00 29.29 kg/m2 [facility] [place] [facility] Systolic blood 2021-01-08 16:42:00 118 mm[Hg] [facility] Diastolic blood 2021-01-08 16:42:00 85 mm[Hg] [facility] Heart rate 2021-01-08 16:42:00 89 /min [facility] Body temperature 2021-01-08 16:42:00 36.78 [place] [facility] [place] [facility] Respiratory rate 2021-01-08 16:42:00 18 /min [facility] Body weight 2021-01-08 16:42:00 72.576 kg [facility] [place] [facility] BMI 2021-01-08 16:42:00 31.25 kg/m2 [facility] Oxygen saturation in 2021-01-08 16:42:00 98 /min [facility] [place] [employer] yevgeniy Pulse oximetry Branch Systolic blood 2021-01-08 16:42:00 118 mm[Hg] [facility] Diastolic blood 2021-01-08 16:42:00 85 mm[Hg] [facility] Heart rate 2021-01-08 16:42:00 89 /min [facility] Body temperature 2021-01-08 16:42:00 36.78 [place] [facility] Respiratory rate 2021-01-08 16:42:00 18 /min [facility] Body weight 2021-01-08 16:42:00 72.576 kg [facility] BMI 2021-01-08 16:42:00 31.25 kg/m2 [facility] Oxygen saturation in 2021-01-08 16:42:00 98 /min [facility] Arterial blood by [facility] Pulse oximetry Branch Systolic blood 2021-01-06 07:57:17 130 mm[Hg] [facility] Diastolic blood 2021-01-06 07:57:17 80 mm[Hg] [facility] Heart rate 2021-01-06 07:57:17 85 /min [facility] Respiratory rate 2021-01-06 07:57:17 16 /min [facility] Oxygen saturation in 2021-01-06 07:57:17 98 /min [facility] Arterial blood by [facility] Pulse oximetry Branch Body temperature 2021-01-06 05:25:00 36.72 [place] [facility] [place] [facility] Body height 2021-01-06 05:25:00 152.4 cm [facility] Body weight 2021-01-06 05:25:00 72.576 kg [facility] BMI 2021-01-06 05:25:00 31.25 kg/m2 [facility] Systolic blood 2021-01-06 07:57:17 130 mm[Hg] [facility] Diastolic blood 2021-01-06 07:57:17 80 mm[Hg] [facility] Heart rate 2021-01-06 07:57:17 85 /min [facility] Respiratory rate 2021-01-06 07:57:17 16 /min [facility] Oxygen saturation in 2021-01-06 07:57:17 98 /min [facility] Arterial blood by [facility] Pulse oximetry Branch Body temperature 2021-01-06 05:25:00 36.72 [place] [facility] Body height 2021-01-06 05:25:00 152.4 cm [facility] Body weight 2021-01-06 05:25:00 72.576 kg [facility] BMI 2021-01-06 05:25:00 31.25 kg/m2 [facility] Systolic blood 2021-01-01 01:44:12 122 mm[Hg] [facility] Diastolic blood 2021-01-01 01:44:12 82 mm[Hg] [facility] Heart rate 2021-01-01 01:44:12 64 /min [facility] Respiratory rate 2021-01-01 01:44:12 16 /min [facility] Oxygen saturation in 2021-01-01 01:44:12 100 /min [facility] Arterial blood by [facility] Pulse oximetry Branch Body temperature 2020-12-31 23:25:00 37.06 [place] [facility] Body weight 2020-12-31 23:25:00 81.647 kg [facility] BMI 2020-12-31 23:25:00 35.15 kg/m2 [facility] Systolic blood 2021-01-01 01:44:12 122 mm[Hg] [facility] Diastolic blood 2021-01-01 01:44:12 82 mm[Hg] [facility] Heart rate 2021-01-01 01:44:12 64 /min [facility] Respiratory rate 2021-01-01 01:44:12 16 /min [facility] Oxygen saturation in 2021-01-01 01:44:12 100 /min [facility] Arterial blood by [facility] Pulse oximetry Branch Body temperature 2020-12-31 23:25:00 37.06 [place] [facility] Body weight 2020-12-31 23:25:00 81.647 kg [facility] BMI 2020-12-31 23:25:00 35.15 kg/m2 [facility] Systolic blood 2020-12-10 06:00:00 112 mm[Hg] Univer sity of pressure [facility] Diastolic blood 2020-12-10 06:00:00 70 mm[Hg] [facility]ive [facility] Heart rate 2020-12-10 06:00:00 84 /min [facility] Respiratory rate 2020-12-10 06:00:00 16 /min [facility] Oxygen saturation in 2020-12-10 06:00:00 99 /min University of Arterial blood by [facility] yevgeniy Pulse oximetry Branch Body temperature 2020-12-10 01:40:00 37.11 [place] [facility] ersity of [facility] Body weight 2020-12-10 01:40:00 81.647 kg [facility] BMI 2020-12-10 01:40:00 35.15 kg/m2 [facility] [place] [facility] Systolic blood 2020-12-10 06:00:00 112 mm[Hg] Univer sity of [facility] Diastolic blood 2020-12-10 06:00:00 70 mm[Hg] Unive rsity of [facility] Heart rate 2020-12-10 06:00:00 84 /min [facility] Respiratory rate 2020-12-10 06:00:00 16 /min [facility] Oxygen saturation in 2020-12-10 06:00:00 99 /min [facility] Arterial blood by [facility] yevgeniy Pulse oximetry Branch Body temperature 2020-12-10 01:40:00 37.11 [place] [facility] Body weight 2020-12-10 01:40:00 81.647 kg [facility] BMI 2020-12-10 01:40:00 35.15 kg/m2 [facility] Procedures Procedure Date / Time Performing Clinician Source Performed XR ANKLE 3+ VW 2022-01-26 22:13:00 Petty Bailey [facility] [place] [facility] XR FEMUR 2 VW RIGHT 2022-01-26 22:13:00 Petty Bailey [facility] ty of [facility] XR TIBIA FIBULA 2 VW 2022-01-26 22:13:00 Petty Bailey [facility] CONSENT/REFUSAL FOR 2022-01-26 20:54:27 Doctor Unassigned, No [facility] [place] [facility]REAT[facility] Name Medical Branch XR KNEE 3 VW RIGHT 2021-11-23 21:52:00 Brandon Rapp [facility] CONSENT/REFUSAL FOR 2021-11-23 21:06:56 Doctor Unassigned, No [facility] [place] [facility] Name Medical Branch XR ANKLE 3+ VW RIGHT 2021-09-26 21:52:00 Joyce Bello [facility] CONSENT/REFUSAL FOR 2021-09-26 20:49:12 Doctor Unassigned, No [facility] [place] [facility] Name [facility] ED SPLINT APPLICATION 2021-09-25 01:31:57 Kadeem Anderson [facility] XR ANKLE 3+ VW LEFT 2021-09-25 00:17:00 Kadeem Anderson [facility] XR KNEE 3 VW RIGHT 2021-09-25 00:17:00 Kadeem Anderson [facility] XR TIBIA FIBULA 2 VW 2021-09-25 00:17:00 Kadeem Anderson [facility] CONSENT/REFUSAL FOR 2021-09-24 23:18:51 Doctor Unassigned, No [facility] [place] [facility] POCT TEST 2021-08-18 13:11:00 Joyce Bello [facility] COMP. METABOLIC PANEL 2021-08-18 12:11:00 Joyce Bello [facility] ([id number]) [facility] CBC WITH DIFF 2021-08-18 12:11:00 Joyce Bello [facility] NOTICE OF PRIVACY 2021-08-18 11:47:07 Doctor Unassigned, No Univ [facility] [place] PRACTICES [facility] Medical Branch CONSENT/REFUSAL FOR 2021-08-18 11:45:28 Doctor Unassigned, No [facility] [place] [facility] Name Medical Branch XR SHOULDER 2+ VW LEFT 2021-06-22 23:22:00 Nelson Jones Unive [facility] CONSENT/REFUSAL FOR 2021-06-22 22:32:46 Doctor Unassigned, No [facility] [place] [facility]REAT[facility] Name Medical Branch NOTICE OF PRIVACY 2021-06-22 22:32:11 Doctor Unassigned, No Univ ersity of [facility] Medical Branch XR ANKLE 3+ VW LEFT 2021-05-18 23:39:19 [facility] XR TIBIA FIBULA 2 VW 2021-05-18 23:39:19 Nelson Jones [facility] NOTICE OF PRIVACY 2021-05-18 23:06:10 Doctor Unassigned, No [facility] Medical Branch CONSENT/REFUSAL FOR 2021-05-18 23:05:34 Doctor Unassigned, No [facility] [place] [facility]IS [facility]REATMENT Name Medical Branch XR ANKLE 3+ VW LEFT 2021-03-03 22:44:43 [facility] POCT TEST 2021-01-23 03:16:00 Ashley Hoffman [facility] Branch XR ANKLE 3+ VW LEFT 2021-01-23 02:21:27 Ashley Hoffman [facility] Medical Branch XR FOOT 3+ VW LEFT 2021-01-23 02:21:27 Ashley Hoffman [facility] Medical Branch XR KNEE 3 VW LEFT 2021-01-23 02:21:[address] [facility] TIBIA FIBULA 2 VW 2021-01-23 02:21:27 Ashley Hoffman [facility] CONSENT/REFUSAL FOR 2021-01-23 01:04:20 Doctor Unassigned, No [facility] [place] [facility]AT[facility] Name Medical Branch POCT TEST 2021-01-08 16:54:00 [facility] LIPASE 2021-01-08 16:51:00 Joyce Bello [facility] HEPATIC FUNCTION PANEL 2021-01-08 16:51:00 [facility] [place] ([id number] (ALB,T.PRO,BILI Medical Branch T,BU/BC,ALT,AST,ALK PHOS) BASIC METABOLIC PANEL 2021-01-08 16:51:00 Joyce Bello [facility] (NA, K, CL, CO2, Medical Branch GLUCOSE, BUN, CREATININE, CA) CBC WITH DIFF 2021-01-08 16:51:00 Joyce Bello [facility] URINALYSIS 2021-01-08 16:51:00 Joyce Bello [facility] CONSENT/REFUSAL FOR 2021-01-08 16:36:20 Doctor Unassigned, No [facility] Name [facility] RAPID STREP SCREEN FOR 2021-01-06 07:24:00 AnaidBar nichole [facility] GROUP A Medical Branch URINALYSIS 2021-01-06 06:36:00 [facility] COVID-19 (ID NOW RAPID 2021-01-06 06:29:00 Bar Worrell [facility] TESTING) Medical Branch CONSENT/REFUSAL FOR 2021-01-06 05:04:46 Doctor Unassigned, No [facility] Name [facility] XR ANKLE 3+ VW LEFT 2021-01-01 01:00:37 Cassandra Cash [facility] CONSENT/REFUSAL FOR 2020-12-31 23:11:51 [facility] Name [facility] NOTICE OF PRIVACY 2020-12-31 23:11:21 Doctor Unassigned, No [facility] PRACTICES Name [facility] URINALYSIS 2020-12-10 04:45:00 Hammad Castellanos [facility] XR LUMBAR SPINE 2 VW 2020-12-10 04:44:46 Hammad Castellanos [facility] POCT TEST 2020-12-10 04:41:00 Hammad Castellanos [facility] Encounters Start End Encounter Admission Attending Care Care Encounter Source Date/Time Date/Time Type Type Clinicians Facility Department ID 2022-01-26 2022-01-26 Emergency X JOHNY BAILEY ERT [id number] Univers 16:14:00 18:22:00 PETTY tomlin [facility] 2022-01-26 2022-01-26 Emergency Brandon Rapp [facility] [id number]. [id number] Univers 16:14:00 18:22:00 Petty Bailey KIKA [id number] ity [facility] [id number] [facility] [id number] [address] 2021-11-23 2021-11-23 Emergency [facility] [id number] Univers 16:12:00 17:43:00 BRANDON tomlin [facility] 2021-11-23 2021-11-23 [facility] [id number] Univers 16:12:00 17:43:00 Brandon ANAND [id number] i ty of [place] [id number] [facility] [id number] [address] 2021-09-26 2021-09-26 Emergency [facility] [id number] Univers 16:14:00 17:07:00 JOYCE ity [facility] 2021-09-26 2021-09-26 [facility] [id number] Univers 16:14:00 17:07:00 [id number] [id number] [facility] [id number] [address] 2021-09-24 2021-09-24 Emergency X MONICA [facility] ERT [id number] Univers 18:41:00 20:17:00 KADEEM tomlin [facility] 2021-09-24 2021-09-24 Emergency Monica [facility] [id number] Univers 18:41:00 20:17:00 Kadeem ANAND [id number] i ty of [place] [id number] [facility] [id number] [address] 2021-08-18 2021-08-18 Emergency [facility] [id number] Univers 05:50:00 07:49:00 JOYCE ity [facility] 2021-08-18 2021-08-18 Emergency [facility] [id number] Univers 05:50:00 07:49:00 Joyce ANAND [id number] ity [facility] [id number] [facility] [id number] [address] 2021-06-22 2021-06-22 Emergency X [facility] ERT [id number] Univers 16:39:00 18:27:00 NELSON ity [facility] 2021-06-22 2021-06-22 Emergency [facility] [id number] Univers 16:39:00 18:27:00 Nelson Ingram KIKA [id number] i ty of [place] [id number] [facility] [id number] [address] 2021-05-18 2021-05-18 Emergency X [facility] ERT [id number] Univers 17:15:00 18:51:00 NELSON itanjali [facility] 2021-05-18 2021-05-18 Emergency [facility] [id number] Univers 17:15:00 18:51:00 Nelson ANAND [id number] i ty of [place] [id number] [facility] [id number] [address] 2021-03-03 2021-03-03 [facility] [id number] Univers 17:12:00 18:23:00 Joyce Anand [id number] ity [facility] [id number] [facility] [id number] [address] 2021-03-03 2021-03-03 Emergency X [facility] ERT [id number] Univers 17:12:00 17:12:00 JOYCE ity [facility] 2021-01-22 2021-01-22 Emergency [facility] [id number] Univers 20:36:00 22:45:00 Ashley Anand [id number] i ty [place] [id number] [id number] [facility] [place] [facility] 084 [place] 2021-01-22 2021-01-22 Emergency [facility] [id number] Univers 20:36:00 22:45:00 ASHLEY tomlin [facility] 2021-01-22 2021-01-22 Emergency [facility] [id number] 20:36:00 22:45:00 Ashley Kika [id number] [place] [id number] [place] [id number] [facility] 2021-01-22 2021-01-22 Nurse DAVID Griggs [id number] Univers 00:00:00 00:00:00 Triage Isabelle Partida CHERYL [id number] ity of HOSPITAL [id number] [place] [id number] [facility] [place] [facility] 019 [place] 2021-01-22 2021-01-22 Orders Doctor DAVID [id number] Univers 00:00:00 00:00:00 Only Unassigned, CHERYL [id number] ity of [place] [facility] [id number] [place] [id number] [facility] 009 [place] 2021-01-22 2021-01-22 DAVID Wylie [id number] 00:00:00 00:00:00 Triage Isabelle JAYY [id number] HOSPITAL [id number] [id number] 2021-01-22 2021-01-22 Orders Doctor DAVID [id number] 00:00:00 00:00:00 Only Unassigned, CHERYL [id number] [place] [facility] [id number] [id number] 2021-01-08 2021-01-08 Emergency [facility] [id number] Univers 11:45:00 13:10:00 Joyce Anand [id number] ity of [place] [id number] [facility] [id number] [address] 2021-01-08 2021-01-08 Emergency Ace, [facility] 1.2.840.114 [id number] 11:45:00 13:10:00 Joyce Fangton [id number] [place] [id number] [place] [id number] [facility] 2021-01-08 2021-01-08 Emergency X [facility] ERT [id number] Univers 11:36:00 11:36:00 ity of [facility] 2021-01-06 2021-01-06 Emergency [facility], [facility] [id number] Univers 00:28:00 03:00:00 Paulanani Kika [id number] i ty of [place] [id number] [facility] [id number] [address] 2021-01-06 2021-01-06 Emergency [facility], [facility] [id number] 00:28:00 03:00:00 Paulanani [place] [id number] [place] [id number] [place] [id number] [facility] 2021-01-06 2021-01-06 Emergency X [facility] ERT [id number] Univers 00:04:00 00:04:00 ity of [facility] 2020-12-31 2020-12-31 [facility] 1.2.840.114 [id number] [facility] 18:26:00 21:47:00 Cassandra Anand [id number] ity of [place] [id number] [facility] [id number] [address] 2020-12-31 2020-12-31 Emergency Ibikunle, [facility] 1.2.840.114 [id number] 18:26:00 21:47:00 Cassandra Fangton [id number] [place] [id number] [place] [id number] [facility] 2020-12-31 2020-12-31 Emergency X IBASHUNEMILIANO, [facility] ERT [id number] Univers 18:26:00 18:26:00 BENJAMÍNO [facility] 2020-12-09 2020-12-10 Emergency [place], [facility] 1.2.840.114 [id number] Univers 20:42:00 01:58:00 Hammad B [place] [id number] i ty [facility] [id number] [facility] [id number] [address] 2020-12-09 2020-12-10 Emergency Emanuel, [facility] 1.2.840.114 [id number] 20:42:00 01:58:00 Hammad Delgadillo [place] [id number] [place] [id number] [place] [id number] [facility] 2020-12-09 2020-12-09 Emergency [facility] [id number] 4204 [facility] 20:42:00 20:42:00 [facility] 2020-11-16 2020-11-16 Emergency JADE, JARVISET QER [id number] 9- [facility] 16:01:00 16:01:00 [facility] [id number] [facility] [facility] 2020-10-08 2020-10-08 Emergency JADEMACK LEMON QER [id number] 9- [facility] 02:51:00 02:51:00 HA[facility] [id number] [facility] Results Test Description Test Time Test Comments Results Result Comments Source CT/NG, NAAT, URINE 2021-10-05 19:21:23 Test Item Value Reference Range Interpretation Comme nts GONORRHEA, NAAT NEGATIVE NEGATIVE IMPORTA NT NOTICE: SEE ANNOUNCEMENT AT (test code = [email or web address] Note: 32861) Assay methodolo gy is nucleic acid amplification by transcriptio n mediated amplification (TMA) utilizing the A ptima Combo 2 Assay. CHLAMYDIA, NAAT NEGATIVE NEGATIVE IMPORTA NT NOTICE: SEE ANNOUNCEMENT AT (test code = [email or web address] Note: 86863) Assay methodolo gy is nucleic acid amplification by transcriptio n mediated amplification (TMA) utilizing the A ptPlaneta.ru Combo 2 Assay. UNLESS OTHERWISE INDIC ATED, ALL TESTING PERFORMED [facility] PATH [facility], [facility]. [address] [place] [address] CHERRY PITTER: ANGEL PERES M.D. CLIA NUMBER [id number] CAP ACCREDITATI ON NO. CT/NG, NAAT, [id number] 08:23:05 Test Item Value Reference Range Interpretation Comments GONORRHEA, NAAT TEST NOT PERFORMED NEGATIVE Unable to perform (test code = testing, specim en 93132) not received.Charge s adjusted as applicable. CHLAMYDIA, NAAT TEST NOT PERFORMED NEGATIVE Unable to perform (test code = testing, specim en 10181) not received.Charge s adjusted as applicable. CULTURE, [id number] 15:49:17SPECIMEN NUMBER: [id number] CULTURE, URINE SPECIMEN NUMBER: [id number] SPECIMEN COMMENT: URINE SOURCE:URINE REPORT STATUS: FINAL FINAL REPORT: 09/23/2021 50-100,000 CFU/ML MIXED UROGENITAL FLORAVAGINAL PATHOGENS DNA [id number] 13:26:09 Test Item Value Reference Range Interpretation Comments YAAKOV SPECIES (test NEGATIVE NEGATIVE code = ) G. VAGINALIS (test POSITIVE NEGATIVE A code = ) T. VAGINALIS (test NEGATIVE NEGATIVE UNLESS O THERWISE code = ) INDICATED, ALL TESTING PERFORMED [facility] PATHOLOGY [facility], [facility]. [address] [place] [address] 7875 4 LABORATORY DIRE CTOR: ANGEL PERES M.D. CLIA NUMBER [id number] CAP ACCREDITATI ON NO. HEPATITIS PANEL, [id number] 06:02:01 Test Item Value Reference Range Interpretation Comments HEPATITIS A IgM (test NON-REACTIVE NON-REACTIVE code = 83098) HEPATITIS B CORE IgM NON-REACTIVE NON-REACTIVE (test code = 4644) HEPATITIS B SURF AG NON-REACTIVE NON-REACTIVE (test code = 2739) HEPATITIS C ANTIBODY NON-REACTIVE NON-REACTIVE (test code = 4675) INTERPRETATION (NOTE) Hepatitis A HEPATITIS A: (test code sero logy shows no = 2552) evidence of acu te hepatitis A. INTERPRETATION (NOTE) Hepatitis B HEPATITIS B: (test code sero logy shows no = 79567) evidence of acu te hepatitis B and no indication of exposure to hepatitis B vir us in the previous jackie eight months. INTERPRETATION (NOTE) Hepatitis C HEPATITIS C: (test code sero logy shows no = 77095) evidence of exposure to hepatitisC viru s at this time. I t can take up to 12 months after exposure tothe hepatitis C vir us for antibodies to become detectab le in the blood in certain patient s. HIV 1/2 4TH GEN, RFLX [id number] 06:02:01 Test Item Value Reference Range Interpretation Comments HIV 1/2 4TH GEN, RFLX CONF (test NON-REACTIVE NON-REACTIVE code = 3514) [id number] 05:37:37 Test Item Value Reference Range Interpretation Comments RPR RESULT (test code = NON-REACTIVE NON-REACTIVE 3501) RPR TITER (test code = 3500) NOT INDIC. TITER NOT INDIC. POCT [id number] 13:11:00 Test Item Value Reference Range Interpretation Comments POCT PREG (test code = 1605) negative On board controls acceptable with present C Line (test code = 3574) POCT PREG LOT # (test code = 3575) [id number] POCT PREG TEST DATE (test 08/13/2022 code = 3576) Lab Interpretation (test code = Normal 03336-5) [facility]. METABOLIC PANEL (61795)2021-08-18 12:56:33 Test Item Value Reference Range Interpretation Comments NA (test code = 139 mmol/L 135-145 5363369675) K (test code = 3.9 mmol/L 3.5-5.0 1683093344) CL (test code = 105 mmol/L 98-108 0504785182) CO2 TOTAL (test code = 20 mmol/L 23-31 L 2647813824) AGAP (test code = 2-16 0449062451) BUN (test code = 22 mg/dL 7-23 2774997944) GLUCOSE (test code = 152 mg/dL 70-110 H 2199431573) CREATININE (test code = 0.58 mg/dL 0.50-1.04 9493733026) TOTAL BILI (test code = 1.1 mg/dL 0.1-1.7 8295452749) CALCIUM (test code = 9.2 mg/dL 8.6-10.6 8778315838) T PROTEIN (test code = 8.6 g/dL 6.3-8.2 H 9036574775) ALBUMIN (test code = 5.1 g/dL 3.5-5.0 H 6078947452) ALK PHOS (test code = 92 U/L 34-122 0503370905) ALTv (test code = 29 U/L 5-35 1742-6) AST(SGOT) (test code = 37 U/L 13-40 4935416467) eGFR (test code = mL/min/1.73m2 3400349296) REDD (test code = REDD) Association of Glomerular Filtration Rate (GFR) and Staging of Kidney Disease* + --+ --+ ------+| GFR (mL/min/1.73 m2) ?| With Kidney Damage ?| ?Without Kidney Damage+ --------+ --------+ +| ?>90 ?| ?Stage one ?| ? Normal ?+ ---+ ---+ -------+| ?60-89 ?| ?Stage two ?| ? Decreased GFR ? + --+ --+ ------+| ?30-59 ?| ?Stage three ?| ? Stage three ? + --+ --+ ------+| ?15-29 ?| ?Stage four ? | ? Stage four ?+ ---+ ---+ -------+| ?<15 (or dialysis) ? ?| ?Stage five ? | ? Stage five ?+ ---+ ---+ -------+ *Each stage assumes the associated GFR level [...] or urine or abnormalities in imaging tests). Lab Interpretation Abnormal (test code = 16698-7) [facility] WITH [id number] 12:19:09 Test Item Value Reference Range Interpretation Comments WBC (test code = See_Comment [Automated 6690-2) message] The sy stem which generated this result transmitted reference range : 4.30 - 11.10 10*3/?L. The reference range was not used to interpret this result as normal/abnormal . RBC (test code = See_Comment [Automated 789-8) message] The sy stem which generated this result transmitted reference range : 3.93 - 5.25 10*6/?L. The reference range was not used to interpret this result as normal/abnormal . HGB (test code = 13.7 g/dL 11.6-15.0 718-7) HCT (test code = 41.7 % 35.7-45.2 4544-3) MCV (test code = 83.4 fL 80.6-95.5 787-2) MCH (test code = 27.4 pg 25.9-32.8 785-6) MCHC (test code = 32.9 g/dL 31.6-35.1 786-4) RDW-SD (test code = 40.7 fL 39.0-49.9 95863-7) RDW-CV (test code = 13.4 % 12.0-15.5 788-0) PLT (test code = See_Comment [Automated 777-3) message] The sy stem which generated this result transmitted reference range : 166 - 358 10*3/ ?L. The reference r kay was not used to interpret this result as normal/abnormal . MPV (test code = 10.4 fL 9.5-12.9 74408-8) NRBC/100 WBC (test See_Comment [Automat ed code = 9018303939) message] The system which generated this result transmitted reference range : 0.0 - 10.0 /100 WBCs. The refer ence range was not u sed to interpret th is result as normal/abnormal . NRBC x10^3 (test code <0.01 See_Comment [Auto mated = 9940345125) message] The s ystem which generated this result transmitted reference range : 10*3/?L. The reference range was not used to interpret this result as normal/abnormal . GRAN MAT (NEUT) % 88.2 % (test code = 770-8) IMM GRAN % (test code 0.30 % = 4800496197) LYMPH % (test code = 7.1 % 736-9) MONO % (test code = 4.1 % 5905-5) EOS % (test code = 0.2 % 713-8) BASO % (test code = 0.1 % 706-2) GRAN MAT x10^3(ANC) 9.30 10*3/uL 1.88-7.09 H (test code = 8976746511) IMM GRAN x10^3 (test 0.03 10*3/uL 0.00-0.06 code = 3005189356) LYMPH x10^3 (test code 0.75 10*3/uL 1.32-3.29 L = 731-0) MONO x10^3 (test code 0.43 10*3/uL 0.33-0.92 = 742-7) EOS x10^3 (test code = <0.03 0.03-0.39 L 711-2) BASO x10^3 (test code <0.03 0.01-0.07 = 704-7) Lab Interpretation Abnormal (test code = 49172-8) [id number] 06:45:39 Test Item Value Reference Range Interpretation Comments HCG, QUALITATIVE (test NEGATIVE NEGATIVE UNL ESS OTHERWISE code = 2507) INDICATED, ALL TESTING PERFORMED [facility] PATHOLOGY [facility] [address] [place] [address] 4 LABORATORY DIRE CTOR: ANGEL PERES M.D. CLIA NUMBER [id number] [id number] CBC W/AUTO DIFF WITH [id number] 05:03:48 Test Item Value Reference Range Interpretation [...] = 1036) NUCLEATED RBCS (test 0.0 /100 WBC'S See_Comment [Aut omated code = 1065) message] The sy stem which generated this [...] RBCS 0.00 K/UL 0.00-0.11 (test code = 53723) POCT [id number] 03:16:00 Test Item Value Reference Range Interpretation Comments POCT PREG (test code = 1605) Negative On board controls acceptable with Present C Line (test code = 3574) POCT PREG LOT # (test code = HCG [id number]) POCT PREG TEST DATE (test 06/15/2022 code = 3576) Lab Interpretation (test code = Normal 28247-4) [facility] 17:54:54 Test Item Value Reference Range Interpretation Comments APPEARANCE (test code = Hazy Clear A 9840701758) COLOR (test code = Yellow Yellow 2124613008) PH (test code = 4.8-8.0 9841366533) SP GRAVITY (test code = 1.003-1.030 1971040012) GLU U QUAL (test code = Normal Normal 2742556957) BLOOD (test code = 1+ Negative A 3478186697) KETONES (test code = Negative Negative 5900953271) PROTEIN (test code = Negative Negative 2887-8) UROBILIN (test code = Normal Normal 2259354754) BILIRUBIN (test code = Negative Negative 6903217534) NITRITE (test code = Negative Negative 2966383068) LEUK LUIZ (test code = Negative Negative 2238896194) RBC/HPF (test code = See_Comment H [Autom ated message] 8044404468) The system Labochema generated this result transmitted ref erence range: 0 - 3 HP F. The reference range was not used to int erpret this result as normal/abnormal . WBC/HPF (test code = See_Comment [Autom ated message] 0942004755) The system [employer]oche[employer] generated this result transmitted ref erence range: 0 - 5 HP F. The reference range was not used to int erpret this result as normal/abnormal . BACTERIA (test code = Few Negative A 3674958818) SQ EPITH (test code = HPF 3879196128) Lab Interpretation (test Abnormal code = 06488-4) [facility] WITH [id number] 17:27:22 Test Item Value Reference Range Interpretation Comments WBC (test code = See_Comment [Automated message] 6690-2) The system Labochema generated this result transmitted ref erence range: 4.30 - 1 1.10 10*3/?L. The re ference range was not u sed to interpret this result as normal/abnor mal. RBC (test code = See_Comment [Automated message] 789-8) The system Labochema generated this result transmitted ref erence range: [...] RDW-SD (test code 40.7 fL 39.0-49.9 = 55231-3) RDW-CV (test code 13.1 % 12.0-15.5 = 788-0) PLT (test code = See_Comment [Automated message] 777-3) The system whic h generated this result transmitted ref erence range: 166 - 35 8 10*3/?L. The re ference range was not u sed to interpret this result as normal/abnor mal. MPV (test code = 10.3 fL 9.5-12.9 50514-3) NRBC/100 WBC (test See_Comment [Automat ed message] code = 7473744599) The syste m which generated this result transmitted ref erence range: 0.0 - 10 .0 /100 WBCs. The refer ence range was not u sed to interpret this result as normal/abnor mal. NRBC x10^3 (test <0.01 See_Comment [Automated message] code = 5294577692) The syste m which generated this result transmitted ref erence range: 10*3/?L. The reference range was not used to interpr et this result as normal/abnormal . GRAN MAT (NEUT) % 58.2 % (test code = 770-8) IMM GRAN % (test 0.50 % code = 9788216953) LYMPH % (test code 29.0 % = 736-9) MONO % (test code 10.0 % = 5905-5) EOS % (test code = 2.0 % 713-8) BASO % (test code 0.3 % = 706-2) GRAN MAT 4.65 10*3/uL 1.88-7.09 x10^3(ANC) (test code = 0910087339) IMM GRAN x10^3 0.04 10*3/uL 0.00-0.06 (test code = 1917764471) LYMPH x10^3 (test 2.32 10*3/uL 1.32-3.29 code = 731-0) MONO x10^3 (test 0.80 10*3/uL 0.33-0.92 code = 742-7) EOS x10^3 (test 0.16 10*3/uL 0.03-0.39 code = 711-2) BASO x10^3 (test <0.03 0.01-0.07 code = 704-7) [facility] METABOLIC PANEL (NA, K, CL, CO2, GLUCOSE, BUN, CREATININE, CA)2021-01-08 17:13:17 Test Item Value Reference Range Interpretation Comments NA (test code = 139 mmol/L 135-145 0407389461) K (test code = 3.9 mmol/L 3.5-5.0 9130742769) CL (test code = 106 mmol/L 98-108 7494203710) CO2 TOTAL (test code 25 mmol/L 23-31 = 8958493940) AGAP (test code = 2-16 1413164729) BUN (test code = 21 mg/dL 7-23 4898915333) GLUCOSE (test code = 99 mg/dL 70-110 8895232803) CREATININE (test code 0.59 mg/dL 0.50-1.04 = 0987000194) CALCIUM (test code = 8.9 mg/dL 8.6-10.6 4569026461) eGFR (test code = mL/min/1.73m2 5880174300) REDD (test code = REDD) Association of [...] or urine or abnormalities in imaging tests). [facility] (62700[facility] (ALB,T.PRO,BILI T,BU/BC,ALT,AST,ALK PHOS)2021-01-08 17:13:17 Test Item Value Reference Range Interpretation Comments TOTAL BILI (test code = 7918712968) 0.4 mg/dL 0.1-1.1 BILI UNCON (test code = 9594861580) 0.3 mg/dL 0.1-1.1 BILI CONJ (test code = 1165493668) 0.0 mg/dL 0.0-0.3 T PROTEIN (test code = 2083943275) 8.4 g/dL 6.3-8.2 H ALBUMIN (test code = 7253395268) 4.4 g/dL 3.5-5.0 ALK PHOS (test code = 3924030648) 91 U/L 34-122 ALTv (test code = 1742-6) 25 U/L 5-35 AST(SGOT) (test code = 6242975532) 35 U/L 13-40 Lab Interpretation (test code = Abnormal 49155-1) [facility]2021-07-26 17:13:17 Test Item Value Reference Range Interpretation Comments LIPASE (test code = 9162030902) 161 U/L 0-220 Lab Interpretation (test code = Normal 64712-8) [facility] [id number] 16:54:00 Test Item Value Reference Range Interpretation Comments POCT PREG (test code = 1605) negative On board controls acceptable with present C Line (test code = 3574) POCT PREG LOT # (test code = 3575) [id number] POCT PREG TEST DATE (test code = 357) Lab Interpretation (test code = Normal 38202-3) [facility] STREP SCREEN FOR GROUP [id number] 07:46:31 Test Item Value Reference Range Interpretation Comments Streptococcus pyogenes (group A) Negative Negative antigen (test code = 69895-4) Lab Interpretation (test code = Normal 27900-1) [facility] (ID NOW RAPID TESTING)2021-01-06 07:02:23 Test Item Value Reference Range Interpretation Comments SARS-CoV-2 Rapid ID NOW Not Detected Not Detected (test code = 29033-1) REDD (test code = REDD) ID NOW COVID-19 Assay is an isothermal nucleic acid amplification test intended for the qualitative detection of nucleic acid from SARS-CoV-2 viral RNA in nasopharyngeal (BULK PLANT OPERATOR) specimens. It is used under Emergency Use [...] indicated. Lab Interpretation Normal (test code = 54062-0) [facility]2021-07-24 06:59:50 Test Item Value Reference Range Interpretation Comments APPEARANCE (test code = Cloudy Clear A 1124425695) COLOR (test code = Yellow Yellow 0012707766) PH (test code = 4.8-8.0 7680867138) SP GRAVITY (test code = 1.003-1.030 3663255989) GLU U QUAL (test code = Normal Normal 0045268158) BLOOD (test code = 1+ Negative A 6144791363) KETONES (test code = Negative Negative 3175976515) PROTEIN (test code = Negative Negative 2887-8) UROBILIN (test code = Normal Normal 3488874791) BILIRUBIN (test code = Negative Negative 8193642613) NITRITE (test code = Negative Negative 9920273008) LEUK LUIZ (test code = Negative Negative 4756095052) RBC/HPF (test code = See_Comment H [Autom ated message] 3311966011) The system Lab[employer] generated this result transmitted ref erence range: 0 - 3 HP F. The reference range was not used to int erpret this result as normal/abnormal . WBC/HPF (test code = See_Comment [Autom ated message] 5009833784) The system [employer] generated this result transmitted ref erence range: 0 - 5 HP F. The reference range was not used to int erpret this result as normal/abnormal . BACTERIA (test code = Moderate Negative A 6268660276) MUCOUS (test code = Slight Negative LPF A 6605968843) SQ EPITH (test code = HPF 3482826631) TRANS EPI (test code = <1 See_Comment [Aut omated message] 7398497881) The system Laboche[employer] generated this result transmitted ref erence range: <=1 HPF. The reference range was not used to int erpret this result as normal/abnormal . Lab Interpretation (test Abnormal code = 89602-6) [facility]manXR ANKLE 3+ VW [id number] 01:53:59There is no acute fracture or dislocation of the left ankle. RL: 6507 STUDY: XRAY XR ANKLE 3+ VW LEFT ORDERING PHYSICIAN: CASSANDRA CASH DATE: ?12/31/2020 7:45 PM REASON FOR EXAM: ?left ankle pain COMPARISON: None available TECHNIQUE: AP, lateral and oblique views of the left ankle FINDINGS: There is no acute fracture or dislocation. ?Th e joint spaces arepreserved. ?The alignment is anatomic. ?The soft tissues are unremarkable. [facility], Radiant Results Inft User - 12/31/2020 8:55 PM CDT STUDY: XRAY XR ANKLE 3+ VW LEFTORDERING PHYSICIAN: CASSANDRA SIMMONSLEDATE: 12/31/2020 7:45 PMREASON FOR EXAM: left ankle pain COMPARISON: None available TECHNIQUE: AP, lateral and oblique views of the left ankleFINDINGS: There is no acute fracture or dislocation. The joint spaces arepreserved. The alignment is anatomic. The soft tissues are unremarkable. IMPRESSIONThere is no acute fracture ordislocation of the left ankle.RL: 6507 UnB[facility] GrapevineUrinalysis2021-06-27 05:46:16 Test Item Value Reference Range Interpretation Comments APPEARANCE (test code = Hazy Clear A 6893625888) COLOR (test code = Yellow Yellow 3067880465) PH (test code = 4.8-8.0 6415699607) SP GRAVITY (test code = 1.003-1.030 6868249385) GLU U QUAL (test code = Normal Normal 8850793302) BLOOD (test code = 1+ Negative A 9254486388) KETONES (test code = Negative Negative 7886892921) PROTEIN (test code = 30 mg/dL Negative A 2887-8) UROBILIN (test code = Normal Normal 1565246567) BILIRUBIN (test code = Negative Negative 9282114387) NITRITE (test code = Negative Negative 6874592464) LEUK LUIZ (test code = Negative Negative 6473266332) RBC/HPF (test code = See_Comment H [Autom ated message] 7000261498) The system [employer] generated this result transmitted ref erence range: 0 - 3 HP F. The reference range was not used to int erpret this result as normal/abnormal . WBC/HPF (test code = See_Comment [Autom ated message] 5645936228) The system [employer] generated this result transmitted ref erence range: 0 - 5 HP F. The reference range was not used to int erpret this result as normal/abnormal . BACTERIA (test code = Few Negative A 8090017216) MUCOUS (test code = Slight Negative LPF A 8365544958) SQ EPITH (test code = HPF 2482062914) Lab Interpretation (test Abnormal code = 51774-0) [facility] LUMBAR SPINE 2 [id number] 05:43:05 No acute osseous findings or significant degenerative changes. Preliminary Report Dictated by Resident: Eli Ortega MD., have reviewed this study and agree with theabove report.EXAM: XR LUMBAR SPINE 2 VW HISTORY: low back pain COMPARISON: None TECHNIQUE: Frontal and lateral views of the lumbar spine were obtained. FINDINGS: [...] this study and agree with theabove report. [facility]manPOCT [id number] 04:41:00 Test Item Value Reference Range Interpretation Comments POCT PREG (test code = 1605) Negative On board controls acceptable with Present C Line (test code = 3574) POCT PREG LOT # (test code = HCG [id number]) POCT PREG TEST DATE (test 05/15/2022 code = 3576) Lab Interpretation (test code = Normal 37667-5) [facility] 1 VIEW [id number] 18:30:00 [facility]NCHEZ I : 1985 Sex: F[address] [address]YUQCDGEGYZ IMAGING REPORTPatient Name: DONNY SÁNCHEZ IDamarissa of Service: [id number]: 35 Sex: F Order #: [id number] Room: ERSDOB: 1985 X-Ray Number: [id number] Record Number: [id number] Hospital Number: [id number] Physician: Flavio JADE Physician: Eve WALKER: Chest APHistory: Shortness of breathComparison: No comparison availableFindings: No focal consolidation, pleural effusion or pneumothorax. Thecardiac and superior mediastinal silhouettes are within normal limits.Impression:No acutecardiopulmonary process.Electronically Signed By: Jesse Davalos M.D., 11/16/2020 6:28 PMLegally authenticated by MARYLU LOWE JR 2020-11-16 18:28:06COVID SYMPTOMATIC ER [id number] 17:45:00 Test Item Value Reference Range Interpretation Comments CORONAVIRUS (COVID-19)BY PCR (test NEGATIVE code = [id number]) ISTAT [id number] 17:10:00 Test Item Value Reference Range Interpretation Comments ISTAT HCG (test <5.0 IU/L A value of l ess than or code = ISHCG) equal to <5 IU /L is considered NEGA TIVE A value between 5 IU/L and 25 IU/L is cons idered INDETERMINATE A value of >25 IU/L is con sidered POSITIVE ANKLE 3 [id number] 04:24:00 [facility] I : 1985 [facility] [place], [place] [address]DUMRGWLDZW IMAGING REPORTPatient Name: DONNY SÁNCHEZ of Service: [id number]: 35 Sex: F Order #: [id number] [facility] 1985 X-Ray Number: [id number] Record Number: [id number] Hospital Number: [id number] Physician: Flavio JADE Physician: HAILE JADEPROCEDURE: ANKLE 3 VIEWSINDICATIONS: Dx: ankle injury pt sts: pt reports falling and twisting herleft anklenohapsv:lsrshielded3 views left ankleComparison: NoneFindings:No fractures or dislocations.There is a small ankle joint effusion.No significant arthritic change. No radiopaque foreign body.Impression:1. No acute bony abnormality involving the left ankle. A small jointeffusion is present.This document has been electronically signed by: Sebastian Rutledge MD 10/08/2020 04:23:50Legally authenticated by NAZIA AUGUST B2040-14-35 02:56:00"
--- NOTE | 2022-02-19 20:34 | RAD REPORT ---
EXAM DESCRIPTION: RAD - Chest Single View - 02/19/2022 8:14 pm CLINICAL HISTORY: Cough COMPARISON: Chest Pa And Lat (2 Views) dated 12/27/2015; CHEST PA AND LAT 2 VIEW dated 06/27/2015; KELSIE ST PA AND LAT 2 VIEW dated 01/19/2015; CHEST SINGLE VIEW dated 11/04/2013 FINDINGS: Lines: None. Lungs: No evidence of edema or pneumonia. Pleural: No significant pleural effusions or pneumothorax. Cardiac: The heart size is within normal limits. Mediastinum: Within normal limits. Bones: No acute fractures. Other: None IMPRESSION: No acute cardiopulmonary disease.
--- NOTE | 2022-02-19 20:36 | EDPHYS ---
Physician Documentation [facility] Name: Dionna Pack Age: 36 yrs Sex: Female : 1985 Arrival Date: 02/19/2022 Time: 18:38 Bed 12 Private MD: ED Physician Rommel Vanegas HPI: 02/19 20:29 This 36 yrs old Female presents to ER via Ambulatory with complaints of Cough, kb Runny Nose, Allergy Symptoms. 20:29 The patient or guardian reports cough, that is intermittent, described as mild. Onset: kb The symptoms/episode began/occurred 4 day(s) ago. Severity of symptoms: At their worst the symptoms were moderate, in the emergency department the symptoms are unchanged. Modifying factors: The symptoms are alleviated by nothing, the symptoms are aggravated by nothing. Associated signs and symptoms: Pertinent positives: rhinorrhea, Pertinent negatives: chest pain, diarrhea, ear ache, fever, nausea, sore throat, vomiting. The patient has not experienced similar symptoms in the past. The patient has not recently seen a physician. Pt reports cough, congestion and runny nose for 4 days. . 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 - Social history:: Smoking status: Patient denies any tobacco usage or history of. Patient/guardian denies using alcohol. ROS: 20:29 Constitutional: Negative for fever, chills, and weight loss. kb 20:29 ENT: Positive for rhinorrhea, sinus congestion. 20:29 Respiratory: Positive for cough. 20:29 All other systems are negative. Exam: 20:29 Constitutional: This is a well developed, well nourished patient who is awake, alert, kb and in no acute distress. Head/Face: Normocephalic, atraumatic. ENT: Moist Mucous membranes Cardiovascular: Regular rate and rhythm with a normal S1 and S2. No gallops, murmurs, or rubs. No pulse deficits. Respiratory: Respirations even and unlabored. No increased work of breathing. Talking in full sentences Abdomen/GI: Soft, non-tender. No distention Skin: Warm, dry with normal turgor. Normal color. MS/ Extremity: Pulses equal, no cyanosis. Neurovascular intact. Full, normal range of motion. Neuro: Awake and alert, GCS 15, oriented to person, place, time, and situation. Moves all extremities. Normal gait. Psych: Awake, alert, with orientation to person, place and time. Behavior, mood, and affect are within normal limits. Vital Signs: 18:57 BP 139 / 99; Pulse 80; Resp 18; Temp 97.2; Pulse Ox 99% on R/A; Weight 72.12 kg; Height eh3 5 ft. 0 in. (152.40 cm); Pain 8/10; 18:57 Body Mass Index 31.05 (72.12 kg, 152.40 cm) eh3 MDM: 19:11 Patient medically screened. kb 20:24 Data reviewed: vital signs, nurses notes. Data interpreted: Pulse oximetry: on room air kb is 99 %. Interpretation: normal. Counseling: I had a detailed discussion with the patient and/or guardian regarding: the historical points, exam findings, and any diagnostic results supporting the discharge/admit diagnosis, lab results, radiology results, the need for outpatient follow up, a family practitioner, to return to the emergency department if symptoms worsen or persist or if there are any questions or concerns that arise at home. 02/19 19:11 Order name: COVID-19 SARS RT PCR (Document "Date of Onset" if Symptomatic) 02/19 20:21 Order name: Influenza Screen (A ; Complete Time: 20:24 EDMS 02/19 20:25 Order name: SARS-COV-2 RT PCR; Complete Time: 20:26 EDMS 02/19 20:35 Order name: RAD; Complete Time: 20:35 EDMS Administered Medications: No medications were administered Disposition Summary: 02/19/22 20:35 Discharge Ordered Location: Home Condition: Stable kb Diagnosis - SARS-associated coronavirus as the cause of diseases classified elsewhere kb Followup: kb - With: Emergency Department - When: As needed - Reason: Worsening of condition Followup: kb - With: Private Physician - When: 2 - 3 days - Reason: Recheck today's complaints, Continuance of care, Re-evaluation by your physician Discharge Instructions: - Discharge Summary Sheet kb - COVID-19 kb - Viral Illness, Adult kb Forms: - Medication Reconciliation Form kb - Thank You Letter kb - Antibiotic Education kb - Prescription Opioid Use kb Addendum: 02/20/2022 22:33 Co-signature as Attending Physician, Rommel Vanegas MD. r n Signatures: Dispatcher [employer] EDNC Richa Carr, ROUTE SALES TRAINEE-C ROUTE SALES TRAINEE-Ckb Rommel Vanegas MD MD rn Hall, Erin, RN RN [facility] Corrections: (The following items were deleted from the chart) 02/19 19:01 19:00 Allergies: none; 3 3
--- NOTE | 2022-02-19 20:36 | ER ---
Nurse's Notes [facility] Name: Dionna Pack Age: 36 yrs Sex: Female : 1985 Arrival Date: 02/19/2022 Time: 18:38 Bed 12 Private MD: Diagnosis: SARS-associated coronavirus as the cause of diseases classified elsewhere Presentation: 02/19 18:57 Chief complaint: Patient states: stuffy nose and unproductive cough. Coronavirus 3 screen: Vaccine status: Patient reports receiving the 2nd dose of the covid vaccine. Ebola Screen: No symptoms or risks identified at this time. Onset: The symptoms/episode began/occurred suddenly, last week. Anaphylaxis evaluation, no signs or symptoms of anaphylaxis were noted. Initial Sepsis Screen: Does the patient meet any 2 criteria? No. Patient's initial sepsis screen is negative. Does the patient have a suspected source of infection? No. Patient's initial sepsis screen is negative. Risk Assessment: Do you want to hurt yourself or someone else? Patient reports no desire to harm self or others. Onset of symptoms was February 14, 2022. 18:57 Method Of Arrival: Ambulatory 3 18:57 Acuity: CORTES 3 3 Triage Assessment: 19:00 General: Appears in no apparent distress. uncomfortable, Behavior is calm, cooperative, eh3 appropriate for age. Pain: Complains of pain in mid-sternal area. Neuro: Level of Consciousness is awake, alert, obeys commands, Oriented to person, place, time, situation. Cardiovascular: Capillary refill < 3 seconds Patient's skin is warm and dry. Respiratory: Airway is patent Respiratory effort is even, unlabored. GI: Abdomen is round non-distended. : No signs and/or symptoms were reported regarding the genitourinary system. Derm: No signs and/or symptoms reported regarding the dermatologic system. Musculoskeletal: No signs and/or symptoms reported regarding the musculoskeletal system. 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 - Social history:: Smoking status: Patient denies any tobacco usage or history of. Patient/guardian denies using alcohol. Screenin:30 Abuse screen: Denies threats or abuse. Denies injuries from another. Nutritional kb3 screening: No deficits noted. Tuberculosis screening: No symptoms or risk factors identified. Fall Risk None identified. Assessment: 19:30 General: Appears in no apparent distress. Behavior is calm, cooperative. General: kb3 Received care of pt from [facility] without distress. Pt reports cough, congestion, runny nose x5 days, denies fever. Reports children have similar symptoms. Respiratory: Airway is patent Breath sounds are clear bilaterally. Vital Signs: 18:57 BP 139 / 99; Pulse 80; Resp 18; Temp 97.2; Pulse Ox 99% on R/A; Weight 72.12 kg; Height 3 5 ft. 0 in. (152.40 cm); Pain 8/10; 18:57 Body Mass Index 31.05 (72.12 kg, 152.40 cm) 3 ED Course: 18:38 Patient arrived in ED. mr 18:46 Richa [facility]-C [facility] kb 18:46 Rommel Vanegas MD is Attending Physician. kb 19:00 Triage completed. 3 19:00 Arm band placed on left wrist. 3 19:30 Patient has correct armband on for positive identification. Bed in low position. [facility] in reach. Warm blanket given. 19:30 No provider procedures requiring assistance completed. kb3 19:52 Jeanine Steele, RN is Primary Nurse. kb3 20:59 Patient did not have IV access during this emergency room visit. vc1 Administered Medications: No medications were administered Medication: 19:30 VIS not applicable for this client. kb3 Outcome: 20:35 Discharge ordered by . kb 20:58 Discharged to home ambulatory, with significant other. vc1 20:58 Condition: good 20:58 Discharge instructions given to patient, Instructed on discharge instructions, Demonstrated understanding of instructions, follow-up care. 20:59 Patient left the ED. vc1 Signatures: Richa Carr FNP-C FNP-Matt Emiliana De Guzman mr Kriss Taveras RN RN vc1 Chrissy Salcedo RN RN 3 Jeanine Steele RN RN kb3 Corrections: (The following items were deleted from the chart) 19:01 19:00 Allergies: none; [facility]
[2022-02-19 23:33] VITALS: BP 139/99; TEMP 97.2; O2SAT 99
== END 2022-02-19 20:59 | disposition home or self-care (01) ==
LOC: ER 18:35
DX: U07.1 COVID-19 (principal); Z88.6 Allergy status to analgesic agent
CPT/HCPCS: 71045; 87804; 99281; U0003

== ENCOUNTER 2023-03-18 17:50 | Emergency (ER) | payer SELFPAY ==
--- OUTSIDE RECORDS SUMMARY | 2023-03-18 17:59 | XMS REPORT | Continuity of Care Document ---
:[address] [facility] t Address [address] [place] [address] Care Team Providers Name Role Phone Celeste Escamilla Primary Care Physician [phone] JALEEL ACE Attending Clinician Unavailable Jaleel Ace MD Attending Clinician Anna Marie LAWRENCE Attending Clinician Unavailable Petty Man Attending Clinician Anna Marie Tatum Attending Clinician PETTY BAILEY Attending Clinician Unavailable BRANDON RAPP Attending Clinician Unavailable Brandon Rapp MD Attending Clinician JOYCE BELLO Attending Clinician Unavailable Joyce Bello DO Attending Clinician KADEEM ANDERSON Attending Clinician Unavailable Kadeem Nolen Attending Clinician NELSON JONES Attending Clinician Unavailable Nelson Sebastian Attending Clinician Ashley Marrero Attending Clinician ASHLEY HOFFMAN Attending Clinician Unavailable Anson PRUITT, Isabelle Partida Attending Clinician Unavailable Doctor Unassigned, [place] Attending Clinician Unavailable Bar Delgadillo Attending Clinician Cassandra Colindres Attending Clinician CASSANDRA CASH Attending Clinician Unavailable Hammad Adler Attending Clinician HAMMAD CASTELLANOS Attending Clinician Unavailable HAILE JADE Attending Clinician Unavailable JALEEL ACE Admitting Clinician Unavailable Anna Marie LAWRENCE Admitting Clinician Unavailable PETTY BAILEY Admitting Clinician Unavailable BRANDON RAPP Admitting Clinician Unavailable JOYCE BELLO Admitting Clinician Unavailable KADEEM ANDERSON Admitting Clinician Unavailable NELSON JONES Admitting Clinician Unavailable ASHLEY HOFFMAN Admitting Clinician Unavailable HAILE JADE Admitting Clinician Unavailable Payers Payer Name Policy Type Policy Number Effective Date Expiration Date Jaquan woodson MEDICAID ALIEN PENDING 2023 PENDING 00:00:00 Problems Condition Condition Condition Status Onset Resolution Last Treating Co mments Source Name Details Category Date Date Treatment Clinician Date Contracept Contracept Disease Active U daniele spike spike 5-05 [place] [facility] Depo Depo Disease Active Univers contracept contracept 5-05 it y of ion ion 00:00: [address] History of History of Disease Active U daniele tubal tubal 5-05 ity of ligation ligation 00:00: [place] 00 [facility] Heavy Heavy Disease Active Univers menses menses 5-05 ity of 00:00: [place] [facility] Morbid Morbid Disease Active Univers obesity obesity 5-05 ity of 00:00: [place] [facility] Dysmenorrh Dysmenorrh Disease Active U daniele ea ea 5-05 ity of 00:00: [place] 00 [facility] Allergies, Adverse Reactions, Alerts Allergy Allergy Status Severity Reaction(s) Onset Inactive Treating Comm ents Source Name Type Date Date Clinician [place] - Propensi Active Intraven ty to 7-05 ous adverse 00:00: reaction 00 to drug No known Miscella Active U Not [facility] Specified 4 [facility] Allergie Allergy 02:53: l s 30 ([facility]) No known Miscella Active U Not [facility] drug neous Specified - Hospita Allergie Allergy 02:53: l s 30 ([facility] nt) No known Miscella Active U Not Baptis t drug neous Specified 10-08 Hospita Allergie Allergy 02:53: l s 30 ([facility] nt) No known Miscella Active U Not Baptis t drug neous Specified 10-08 Hospita Allergie Allergy 02:53: l s 30 ([facility] nt) No known Miscella Active U Not Baptis t drug neous Specified 10-08 Hospita Allergie Allergy 02:53: l s 30 ([facility] nt) No known Miscella Active U Not Baptis t drug neous Specified 10-08 Hospita Allergie Allergy 02:53: l s 30 ([facility] nt) No known Miscella Active U Not [facility] drug neous Specified 10-08 Hospita Allergie Allergy 02:53: l s 30 ([facility] nt) No known Miscella Active U Not Baptis t drug neous Specified 10-08 Hospita Allergie Allergy 02:53: l s 30 ([facility] nt) No known Miscella Active U Not Baptis t drug neous Specified 10-08 Hospita Allergie Allergy 02:53: l s 30 ([facility] nt) No known Miscella Active U Not Baptis t drug neous Specified 10-08 Hospita Allergie Allergy 02:53: l s 30 ([facility] nt) No Known NA Active [facility] Allergie 10-08 Hospita s 02:53: l 22 ([facility] nt) NO KNOWN Drug Active Univers ALLERGIE Class ity of S [facility] Social History Social Habit Start Date Stop Date Quantity Comments Source Gender identity Universit y [facility] Sexual orientation Univer sity [facility] [place] [facility] Alcohol intake 2023-03-02 2023-03-02 0 /d University of 00:00:00 00:00:00 [facility] History of Social 2023-03-02 2023-03-02 Univers ity of function 00:00:00 00:00:00 [facility] Exposure to 2022-08-29 2022-09-08 Not sure University of SARS-CoV-2 (event) 00:00:00 20:56:00 [facility] Tobacco use and 2016-01-17 2016-01-17 Smokeless Universit y of exposure 00:00:00 00:00:00 tobacco non-user [facility] Sex [birth year] Universit y of 00:00:00 00:00:00 [facility] Smoking Status Start Date Stop Date Source Never smoked tobacco [facility] Medications Ordered Filled Start Stop Current Ordering Indication Dosage Frequency Signature Comments Components Source Medication Medication Date Date Medication? Clinician (SIG) Name Name ibuprofen 2022- No 800mg 800 mg, Uni vers (IBU) 03-02 Oral, ity of tablet 800 23:15: 23:10 ONCE, 1 [place] mg 00 :00 dose, On [facility] 03/02/23 at 1815, ÁNGEL predniSONE 2022- No 40mg 40 mg, Univ ers (DELTASONE) 03-02 Oral, ity of tablet 40 23:15: 23:10 [place]CE, [place] :[place] dose, On [facility] 03/02/23 at 1815, ÁNGEL predniSONE 2022- Yes [id number] 40mg Take 2 Univers 20 mg 03-02 [id number] tablets by ity o f tablet 00:00: 04:59 mouth [place] 00 :00 daily for Medical 7 days. Branch cefdinir 2022- Yes [id number] 300mg Take 1 U nivers 300 mg 03-02 capsule by ity of capsule 00:00: 04:59 mouth [place] 00 :00 every 12 Medical (twelve) Branch hours for 7 days. ibuprofen 2022- No 600mg 600 mg, Uni vers (IBU) 09-08 Oral, ity of tablet 600 23:30: 01:39 ONCE, 1 [place] mg 00 :00 dose, On [facility] 09/08/22 at 1830, ÁNGEL ibuprofen Yes [id number] 600mg Take 1 Univers 600 mg 09-08 [id number] tablet by ity of tablet 00:00: mouth [place] 00 every 6 Medical (six) Branch hours as needed for Pain (scale 4-6). ibuprofen 2022-0 Yes [id number] 600mg Take 1 Univers 600 mg 3-26 [id number] tablet by ity of tablet 00:00: mouth [place] 00 every 6 Medical (six) Branch hours as needed for Pain (scale 4-6). bromphenira 2022-0 Yes [id number] 10mL Take 10 mL Univers mine-pseudo 3-01 by mouth 4 it y of ephedrine-D 00:00: (four) [place] - 00 times Medical mg/5 mL daily as Branch syrup needed for Cough or Cold symptoms. ondansetron 2022-0 Yes [id number] 4mg Take 1 Univers 4 mg 3-01 tablet by ity of disintegrat 00:00: mouth [place] ing tablet 00 every 8 Medica l (eight) Branch hours as needed for Nausea and Vomiting (N/V). albuterol 2022-0 Yes [id number] 2{puff} Inhale 2 Univers 90 3-01 Puffs ity of mcg/actuati 00:00: every 4 [place] on inhaler 00 (four) Medical hours as Branch needed for Wheezing or Shortness of Breath. bromphenira 2022-0 Yes [id number] 10mL Take 10 mL Univers mine-pseudo 3-01 by mouth 4 it y of ephedrine-D 00:00: (four[place] M 00 times Medical mg/5 mL daily as Branch syrup needed for Cough or Cold symptoms. ondansetron 2022-0 Yes [id number] 4mg Take 1 Univers 4 mg 3-01 tablet by ity of disintegrat 00:00: mouth [place] ing tablet 00 every 8 Medica l (eight) Branch hours as needed for Nausea and Vomiting (N/V). albuterol 2022-0 Yes [id number] 2{puff} Inhale 2 Univers 90 3-01 Puffs ity of mcg/actuati 00:00: every 4 [place] on inhaler 00 (four) Medical hours as Branch needed for Wheezing or Shortness of Breath. bromphenira 2022-0 Yes [id number] 10mL Take 10 mL Univers mine-pseudo 3-01 by mouth 4 it y of ephedrine-D 00:00: (four[place] M 230-10 00 times Medical mg/5 mL daily as Branch syrup needed for Cough or Cold symptoms. ondansetron 2022-0 Yes [id number] 4mg Take 1 Univers 4 mg 3-01 tablet by ity of disintegrat 00:00: mouth [place] ing tablet 00 every 8 Medica l (eight) Branch hours as needed for Nausea and Vomiting (N/V). albuterol 2022-0 Yes [id number] 2{puff} Inhale 2 Univers 90 3-01 Puffs ity of mcg/actuati 00:00: every 4 [place] on inhaler 00 (four) Medical hours as Branch needed for Wheezing or Shortness of Breath. ondansetron 2021-06 Yes [id number] 4mg Take 1 Univers 4 mg 2-03 tablet by ity of disintegrat 00:00: mouth [place] ing tablet 00 every 4 Medica l (four) Branch hours as needed for Nausea and Vomiting (N/V). ondansetron 2021-06- No [id number] 4mg Take 1 Univers 4 mg 2-03 03-01 tablet by ity of disintegrat 00:00: 00:00 [place] tablet 00 :00 every 4 Medica l (four) Branch hours as needed for Nausea and Vomiting (N/V). benzonatate 2021-0 Yes [id number] 200mg Take 1 Univers 200 mg 9-12 capsule by ity of capsule 00:00: mouth 3 [place] 00 (three) Medical times Branch daily as needed for Cough for up to 20 doses. ibuprofen 2021-0 Yes [id number] 600mg Take 1 Univers 600 mg 9-12 tablet by ity of tablet 00:00: mouth [place] 00 every 6 Medical (six) Branch hours as needed for Pain (scale 4-6). benzonatate 2021-0 Yes [id number] 200mg Take 1 Univers 200 mg 9-12 capsule by ity of capsule 00:00: mouth 3 [place] 00 (three) Medical times Branch daily as needed for Cough for up to 20 doses. ibuprofen 2021-0 Yes [id number] 600mg Take 1 Univers 600 mg 9-12 tablet by ity of tablet 00:00: mouth [place] 00 every 6 Medical (six) Branch hours as needed for Pain (scale 4-6). benzonatate 2022-0 Yes [id number] 200mg Take 1 Univers 200 mg 9-12 capsule by ity of capsule 00:00: mouth 3 [place] (three) Medical times Branch daily as needed for Cough for up to 20 doses. ibuprofen 2021-0 Yes [id number] 600mg Take 1 Univers 600 mg 9-12 tablet by ity of tablet 00:00: mouth [place] 00 every 6 Medical (six) Branch hours as needed for Pain (scale 4-6). benzonatate 2021-0 Yes [id number] 200mg Take 1 Univers 200 mg 9-12 capsule by ity of capsule 00:00: mouth 3 [place] 00 (three) Medical times Branch daily as needed for Cough for up to 20 doses. ibuprofen 2021-0 Yes [id number] 600mg Take 1 Univers 600 mg 9-12 tablet by ity of tablet 00:00: mouth [place] 00 every 6 Medical (six) Branch hours as needed for Pain (scale 4-6). benzonatate 2021-0 Yes [id number] 200mg Take 1 Univers 200 mg 9-12 capsule by ity of capsule 00:00: mouth 3 [place] (three) Medical times Branch daily as needed for Cough for up to 20 doses. ibuprofen 2021-0 Yes [id number] 600mg Take 1 Univers 600 mg 9-12 tablet by ity of tablet 00:00: mouth [place] 00 every 6 Medical (six) Branch hours as needed for Pain (scale 4-6). acetaminoph 2021-0 2021- No 1000mg 1,000 mg, Univers en 01-26 Oral, ity of (TYLENOL) 23:00: 21:54 ONCE, 1 [place] tablet 00 :00 dose, On Medical 1,000 mg Sat Branch 01/26/22 at 1800, Routine TAKE 1 2021-0 No 600 TABLET 7-08 EVERY 8 00:00: HOURS 00 NEEDED. EpiPen 2021-0 No 1mg/0.3 2-[place] 0.3 6-27 mL mg/0.3 mL 00:00: injection, 00 auto-inject or cetirizine 2021-0 No 1mg 10 mg 6-27 tablet 00:00: 00 Dose 2021-0 No Unknown -27 00:00: 00 Dose 2021-0 No Unknown 6-27 00:00: 00 Dose 2021-0 No Unknown 6-27 00:00: 00 Dose 2021-0 No Unknown 27 00:00: 00 EpiPen 2-0 No 1mg/0.3 2-[place] 0.3 6-27 mL mg/0.3 mL 00:00: injection, 00 auto-inject or cetirizine 2021-0 No 1mg 10 mg 27 tablet 00:00: 00 Dose 2-0 No Unknown 12-10 00:00: 00 Dose 2-0 No Unknown 12-10 00:00: 00 Dose 2-0 No Unknown 12-10 00:00: 00 Dose 2-0 No Unknown 12-10 00:00: 00 ibuprofen 2021-0 Yes [id number] 600mg Take 1 Univers 600 mg 6-10 [id number] tablet by ity of tablet 00:00: mouth [place] 00 every 6 Medical (six) Branch hours as needed for Pain (scale 4-6). ibuprofen 2021-0 Yes [id number] 600mg Take 1 Univers 600 mg 6-10 [id number] tablet by ity of tablet 00:00: mouth [place] 00 every 6 Medical (six) Branch hours as needed for Pain (scale 4-6). ibuprofen 2021-0 Yes [id number] 600mg Take 1 Univers 600 mg 6-10 [id number] tablet by ity of tablet 00:00: mouth [place] 00 every 6 Medical (six) Branch hours as needed for Pain (scale 4-6). ibuprofen 2021-0 Yes [id number] 600mg Take 1 Univers 600 mg 6-10 [id number] tablet by ity of tablet 00:00: mouth [place] 00 every 6 Medical (six) Branch hours as needed for Pain (scale 4-6). ibuprofen 2021-0 Yes [id number] 600mg Take 1 Univers 600 mg 6-10 [id number] tablet by ity of tablet 00:00: mouth [place] 00 every 6 Medical (six) Branch hours as needed for Pain (scale 4-6). ibuprofen 2022-0 Yes [id number] 600mg Take 1 Univers 600 mg 6-10 [id number] tablet by ity of tablet 00:00: mouth [place] 00 every 6 Medical (six) Branch hours as needed for Pain (scale 4-6). ibuprofen 2-0 Yes [id number] 600mg Take 1 Univers 600 mg 6-10 [id number] tablet by ity of tablet 00:00: mouth [place] 00 every 6 Medical (six) Branch hours as needed for Pain (scale 4-6). Diflucan 2021-0 No 1mg 150 mg 5-14 tablet 00:00: 00 Dose 2021-0 No Unknown 5-14 00:00: 00 Diflucan 2021-0 No 1mg 150 mg 5-14 tablet 00:00: 00 Dose 2021-0 No Unknown 5-14 00:00: 00 ibuprofen 2021-0 2021- No 800mg 800 mg, Uni vers (IBU) 12 04-11 Oral, ity of tablet 800 00:45: 23:53 ONCE, 1 [place] mg 00 :00 dose, On Medical Mon Branch 09/24/21 at 1945, ÁNGEL traMADoL 50 2021-0 Yes [id number] 50mg Take 1 Univ ers mg tablet 4-11 tablet by ity o f 00:00: mouth [place] 00 every 8 Medical (eight) Branch hours as needed for Pain (scale 7-10). Indication s: acute pain ibuprofen 0 Yes [id number] 600mg Take 1 U nivers 600 mg [...] Indication s: acute pain ibuprofen 2021-0 Yes [id number] 600mg Take 1 U nivers 600 mg [...] Indication s: acute pain ibuprofen 2021-0 Yes [id number] 600mg Take 1 U nivers 600 mg [...] (scale 7-10). Indication s: acute pain ibuprofen 2022-0 Yes [id number] 600mg Take 1 U nivers 600 mg 4-11 tablet by ity of tablet 00:00: mouth [place] 00 every 6 Medical (six) Branch hours as needed for Pain (scale 4-6). traMADoL 50 2022-0 Yes [id number] 50mg Take 1 Univ ers mg tablet 4-11 tablet by ity o f 00:00: mouth [place] 00 every 8 Medical (eight) Branch hours as needed for Pain (scale 7-10). Indication s: acute pain ibuprofen 2022-0 Yes [id number] 600mg Take 1 U nivers 600 mg 4-11 tablet by ity of tablet 00:00: mouth [place] 00 every 6 Medical (six) Branch hours as needed for Pain (scale 4-6). traMADoL 50 2-0 Yes [id number] 50mg Take 1 Univ ers mg tablet 4-11 tablet by ity o f 00:00: mouth [place] 00 every 8 Medical (eight) Branch hours as needed for Pain (scale 7-10). Indication s: acute pain ibuprofen 2-0 Yes [id number] 600mg Take 1 U nivers 600 mg 4-11 tablet by ity of tablet 00:00: mouth [place] 00 every 6 Medical (six) Branch hours as needed for Pain (scale 4-6). traMADoL 50 2022-0 Yes [id number] 50mg Take 1 Univ ers mg tablet 4-11 tablet by ity o f 00:00: mouth [place] 00 every 8 Medical (eight) Branch hours as needed for Pain (scale 7-10). Indication s: acute pain ibuprofen 2022-0 Yes [id number] 600mg Take 1 U nivers 600 mg 4-11 tablet by ity of tablet 00:00: mouth [place] 00 every 6 Medical (six) Branch hours as needed for Pain (scale 4-6). traMADoL 50 2022-0 Yes [id number] 50mg Take 1 Univ ers mg tablet 4-11 tablet by ity o f 00:00: mouth [place] 00 every 8 Medical (eight) Branch hours as needed for Pain (scale 7-10). Indication s: acute pain ibuprofen 2022-0 Yes [id number] 600mg Take 1 U nivers 600 mg [...] Indication s: acute pain ibuprofen 2021-0 Yes [id number] 600mg Take 1 U nivers 600 mg 4-11 tablet by ity of tablet 00:00: mouth [place] 00 every 6 Medical (six) Branch hours as needed for Pain (scale 4-6). metronidazo 2-0 No 1mg le 500 mg 4-08 tablet 00:00: 00 Dose 2-0 No Unknown 4-08 00:00: 00 Dose 2-0 No Unknown 4-08 00:00: 00 metronidazo 2-0 No 1mg le 500 mg 4-08 tablet 00:00: 00 Dose 2-0 No Unknown 4-08 00:00: 00 Dose 2022-0 No Unknown 4-08 00:00: 00 ibuprofen 2022-0 No 1mg 800 mg 4-01 tablet 00:00: 00 ibuprofen 2022-0 No 1mg 800 mg 4-01 tablet 00:00: 00 Dose 2022-0 No Unknown 4-01 00:00: 00 Dose 2-0 No Unknown 4-01 00:00: 00 Dose 2022-0 No Unknown 4-01 00:00: 00 ibuprofen 2022-0 No 1mg 800 mg 4-01 tablet 00:00: 00 ibuprofen 2022-0 No 1mg 800 mg 4-01 tablet 00:00: 00 Dose 2022-0 No Unknown 4-01 00:00: 00 Dose 2022-0 No Unknown 4-01 00:00: 00 Dose 2022-0 No Unknown 4-01 00:00: 00 Dose 2-0 No Unknown 4-01 00:00: 00 Dose 2022-0 No Unknown 4-01 00:00: 00 Dose 2022-0 No Unknown 4-01 00:00: 00 Dose 2022-0 No Unknown 4-01 00:00: 00 Dose 2022-0 No Unknown 4-01 00:00: 00 Dose 2022-0 No Unknown 4-01 00:00: 00 Dose 2022-0 No Unknown 4-01 00:00: 00 Dose 2022-0 No Unknown 4- 00:00: 00 Dose 2022-0 No Unknown 4- 00:00: 00 Dose 2022-0 No Unknown 4- 00:00: 00 Dose 2022-0 No Unknown 4- 00:00: 00 Dose 2022-0 No Unknown 4- 00:00: 00 Dose 2022-0 No Unknown 4- 00:00: 00 Dose 2022-0 No Unknown 4- 00:00: 00 Dose 2022-0 No Unknown 4- 00:00: 00 Dose 2022-0 No Unknown 4- 00:00: 00 Dose 2022-0 No Unknown 4- 00:00: 00 Dose 2-0 No Unknown 4- 00:00: 00 NaCl 0.9% 2021- No 1000mL at 999 Uni vers (NS) bolus 3-05 03-05 mL/hr, ity of infusion 13:30: 13:46 1,000 mL, [place] 1,000 mL 00 :00 IV Medical Infusion, Branch ONCE, 1 dose, On 08/18/21 at 0730, ÁNGEL ondansetron 0 2021- No 4mg 4 mg, Slow Univers (ZOFRAN 3-05 03-05 IV Push, ity of (PF)) 13:15: 12:12 ONCE, 1 [place] injection 4 00 :00 dose, On Medi yevgeniy mg 08/18/21 Branch at 0715, ÁNGEL ondansetron 2021-0 Yes [id number] 4mg Take 1 Univers 4 mg 3-05 tablet by ity of disintegrat 00:00: mouth [place] ing tablet 00 every 8 Medica l (eight) Branch hours as needed for Nausea and Vomiting (N/V). ondansetron 2-0 Yes [id number] 4mg Take 1 Univers 4 mg 3-05 tablet by ity of disintegrat 00:00: mouth [place] ing tablet 00 every 8 Medica l (eight) Branch hours as needed for Nausea and Vomiting (N/V). ondansetron 2022-0 Yes [id number] 4mg Take 1 Univers 4 mg 3-05 tablet by ity of disintegrat 00:00: mouth [place] ing tablet 00 every 8 Medica l (eight) Branch hours as needed for Nausea and Vomiting (N/V). ondansetron 2021-0 Yes [id number] 4mg Take 1 Univers 4 mg 3-05 tablet by ity of disintegrat 00:00: mouth [place] ing tablet 00 every 8 Medica l (eight) Branch hours as needed for Nausea and Vomiting (N/V). ondansetron 2021-0 Yes [id number] 4mg Take 1 Univers 4 mg 3-05 tablet by ity of disintegrat 00:00: mouth [place] ing tablet 00 every 8 Medica l (eight) Branch hours as needed for Nausea and Vomiting (N/V). ondansetron 2021-0 Yes [id number] 4mg Take 1 Univers 4 mg 3-05 tablet by ity of disintegrat 00:00: mouth [place] ing tablet 00 every 8 Medica l (eight) Branch hours as needed for Nausea and Vomiting (N/V). ondansetron 2021-0 2022- No [id number] 4mg Take 1 Univers 4 mg 3-05 12-03 tablet by ity of disintegrat 00:00: 00:00 mouth [place] ing tablet 00 :00 every 8 Medica l (eight) Branch hours as needed for Nausea and Vomiting (N/V). diclofenac 2021-0 No 1mg sodium 75 1-24 mg 00:00: tablet,patsy 00 yed release diclofenac 2021-0 No 1mg sodium 75 1-24 mg 00:00: tablet,[place] 00 yed release ibuprofen 2021-0 2021- No 600mg 600 mg, Uni vers (IBU) 06-23- Oral, ity of tablet 600 00:15: 23:27 ONCE, 1 [place] mg 00 :00 dose, On Medical 06/22/21 Branch at 1815, ÁNGEL ibuprofen 2021-0 Yes [id number] 600mg Take 1 Univers 600 mg - [id number] tablet by ity of tablet 00:00: mouth [place] 00 every 6 Medical (six) Branch hours as needed for Pain (scale 4-6). ibuprofen 2021-0 2- No [id number] 600mg Take 1 Univers 600 mg - 03-05 [id number] tablet by ity o f tablet 00:00: 00:00 mouth [place] 00 :00 every 6 Medical (six) Branch hours as needed for Pain (scale 4-6). ibuprofen 2020-06 No 600mg 600 mg, Uni vers (IBU) 2-03 Oral, ity of tablet 600 00:30: 23:25 ONCE, 1 [place] mg 00 :00 dose, On Medical Fri Branch 05/18/21 at 1830, ÁNGEL prednisone 2020-06 No mg 20 mg 1-04 tablet 00:00: 00 ProAir HFA 2020-06 No 2mcg/ac 90 1-04 tuation mcg/actuati 00:00: on aerosol 00 inhaler prednisone 2020-06 No mg 20 mg 1-04 tablet 00:00: 00 ProAir HFA 2020-06 No 2mcg/ac 90 1-04 tuation mcg/actuati 00:00: on aerosol 00 inhaler ferrous 2020-06 No 1(65 mg sulfate 325 06-16 iron) mg (65 mg 00:00: iron) 00 tablet Flonase 2020-06 No 12mcg/a Sensimist 06-16 ctuatio 27.5 00:00: n mcg/actuati 00 on nasal spray,suspe nsion ferrous 2020-06 No 1(65 mg sulfate 325 06-16 iron) mg (65 mg 00:00: iron) 00 tablet Flonase 2020-06 No 12mcg/a Sensimist 06-16 ctuatio 27.5 00:00: n mcg/actuati 00 on nasal spray,suspe nsion cholecalcif 2020-06 No 1(50,00 juan c 0-24 0 unit) (vitamin 00:00: D3) 1,250 00 mcg (50,000 unit) tablet cholecalcif 2020-06 No 1(50,00 juan c 0-24 0 unit) (vitamin 00:00: D3) 1,250 00 mcg (50,000 unit) tablet meclizine 2020-06 No 1mg 12.5 mg 0-18 tablet 00:00: 00 meclizine 2020-06 No 1mg 12.5 mg 0-18 tablet 00:00: 00 meclizine 2020-06 No 1mg 12.5 mg 0-18 tablet 00:00: 00 meclizine 2020-06 No 1mg 12.5 mg 0-18 tablet 00:00: 00 HYDROcodone 2021-0 2021- No 1{tbl} 1 tablet, Univers -acetaminop 03-03- Oral, ity of hen (NORCO 23:30: 22:20 ONCE, 1 [place] 5) 5-325 mg 00 :00 dose, On Medi yevgeniy tablet 1 Sat Branch tablet 03/03/21 at 1830, ÁNGEL HYDROcodone 2020-2020- No 1{tbl} 1 tablet, Univers -acetaminop 03-03- Oral, ity of hen (NORCO 23:30: 22:20 ONCE, 1 [place] 5) 5-325 mg 00 :00 dose, On Medi yevgeniy tablet 1 Sat Branch tablet 03/03/21 at 1830, ÁNGEL ibuprofen 2020-2020- No 800mg 800 mg, Uni vers (IBU) 8- 08-10 Oral, ity of tablet 800 04:30: 03:40 ONCE, 1 [place] mg 00 :00 dose, [facility] Medical 01/22/21 at Branch 2330, ÁNGEL ibuprofen 2020-0 Yes [id number] 800mg Take 1 Univers 800 mg 8-09 tablet by ity of tablet 00:00: mouth [place] 00 every 8 Medical (eight) Branch hours as needed for Pain (scale 4-6). ibuprofen 2020-0 Yes [id number] 800mg Take 1 Univers 800 mg 8-09 tablet by ity of tablet 00:00: mouth [place] 00 every 8 Medical (eight) Branch hours as needed for Pain (scale 4-6). ibuprofen 2020-0 Yes [id number] 800mg Take 1 Univers 800 mg 8-09 tablet by ity of tablet 00:00: mouth [place] 00 every 8 Medical (eight) Branch hours as needed for Pain (scale 4-6). ibuprofen 0 Yes [id number] 800mg Take 1 Univers 800 mg 8-09 tablet by ity of tablet 00:00: mouth [place] 00 every 8 Medical (eight) Branch hours as needed for Pain (scale 4-6). ibuprofen 2020-0 Yes [id number] 800mg Take 1 Univers 800 mg 8-09 tablet by ity of tablet 00:00: mouth [place] 00 every 8 Medical (eight) Branch hours as needed for Pain (scale 4-6). ibuprofen 2020-0 2021- No [id number] 800mg Take 1 Univers 800 mg 8-09 [...] as 2 % viscous 00 :00 dose, Mon Med ical 1:1:1 01/08/21 at [place] (FIRST-MOUT 1300, HWASH BLM) Routine oral suspension 15 mL famotidine No 20mg 20 mg, Univ ers (PEPCID 01-08 Slow IV ity of (PF)) 18:00: 16:59 Push, [place] injection 00 :00 ONCE, 1 Medical 20 mg dose, [facility] 01/08/21 at 1300, Routine metoclopram No 10mg 10 mg, Uni vers luke HCl 01-08 Slow IV ity of (REGLAN) 18:00: 16:59 Push, [place] injection 00 :00 ONCE, 1 Medical 10 mg dose, [facility] 01/08/21 at 1300, ÁNGEL NaCl 0.9% 2020- No 1000mL at 999 Uni vers (NS) bolus 01-08 mL/hr, ity of infusion 18:00: 18:06 1,000 mL, [place] 1,000 mL 00 :00 IV Medical Piggyback, [place] ONCE, 1 dose, [facility] 01/08/21 at 1300, STAT metoclopram Yes [id number] 10mg Take 1 Univers luke HCl 10 01-08 tablet by ity of mg tablet 00:00: mouth [place] 00 every 6 Medical (six) Branch hours as needed for Nausea and Vomiting (N/V). metoclopram 2021-0 Yes [id number] 10mg Take 1 Univers luke HCl 10 7-26 tablet by ity of mg tablet 00:00: mouth [place] 00 every 6 Medical (six) Branch hours as needed for Nausea and Vomiting (N/V). metoclopram 1-0 Yes [id number] 10mg Take 1 Univers luke HCl 10 7-26 tablet by ity of mg tablet 00:00: mouth [place] 00 every 6 Medical (six) Branch hours as needed for Nausea and Vomiting (N/V). metoclopram 2020-0 Yes [id number] 10mg Take 1 Univers luke HCl 10 7-26 tablet by ity of mg tablet 00:00: mouth [place] 00 every 6 Medical (six) Branch hours as needed for Nausea and Vomiting (N/V). metoclopram 2020-0 Yes [id number] 10mg Take 1 [facility] luke HCl 10 7-26 tablet by ity of mg tablet 00:00: mouth [place] 00 every 6 Medical (six) Branch hours as needed for Nausea and Vomiting (N/V). metoclopram 2020-0 Yes [id number] 10mg Take 1 [facility]uke HCl 10 7-26 tablet by ity of mg tablet 00:00: mouth [place] 00 every 6 Medical (six) Branch hours as needed for Nausea and Vomiting (N/V). metoclopram 2020-0 Yes [id number] 10mg Take 1 [facility] l[place] HCl 10 7-26 tablet by ity of mg tablet 00:00: mouth [place] 00 every 6 Medical (six) Branch hours as needed for Nausea and Vomiting (N/V). metoclopram 2020-0 Yes [id number] 10mg Take 1 [facility] [place] HCl 10 7-26 tablet by ity of mg tablet 00:00: mouth [place] 00 every 6 Medical (six) Branch hours as needed for Nausea and Vomiting (N/V). metoclopram 2020-0 2022- No [id number] 10mg Take 1 [facility] l[facility] HCl 10 7-26 03-05 tablet by ity of mg tablet 00:00: 00:00 mouth [place] 00 :00 every 6 Medical (six) Branch hours as needed for Nausea and Vomiting (N/V). ondansetron 2020-0 2021- No 4mg 4 mg, Univ ers (ZOFRAN-ODT 7-24 07-24 Oral, ity of ) 07:30: 06:42 ONCE, 1 [place] disintegrat 00 :00 dose, Sat Med ical ing tablet 01/06/21 at [facility] 4 mg 0230, Routine ondansetron 2020-0 Yes [id number] 4mg Take 1 Univers 4 mg 7-24 tablet by ity of disintegrat 00:00: mouth [place] ing tablet 00 every 12 Medic al (twelve) Branch hours as needed for Nausea and Vomiting (N/V). ondansetron 2020-0 Yes [id number] 4mg Take 1 [facility] 4 mg 7-24 tablet by ity of disintegrat 00:00: mouth [place] ing tablet 00 every 12 Medic al (twelve) Branch hours as needed for Nausea and Vomiting (N/V). ondansetron 2020-0 Yes [id number] 4mg Take 1 [facility] 4 mg 7-24 tablet by ity of disintegrat 00:00: mouth [place] ing tablet 00 every 12 Medic al (twelve) Branch hours as needed for Nausea and Vomiting (N/V). ondansetron 2020-0 Yes [id number] 4mg Take 1 [facility] 4 mg 7-24 tablet by ity of disintegrat 00:00: mouth [place] ing tablet 00 every 12 Medic al (twelve) Branch hours as needed for Nausea and Vomiting (N/V). ondansetron 2020-0 Yes [id number] 4mg Take 1 [facility] 4 mg 7-24 tablet by ity of disintegrat 00:00: mouth [place] ing tablet 00 every 12 Medic al (twelve) Branch hours as needed for Nausea and Vomiting (N/V). ondansetron 2020-0 Yes [id number] 4mg Take 1 [facility] 4 mg 7-24 tablet by ity of disintegrat 00:00: mouth [place] ing tablet 00 every 12 Medic al (twelve) Branch hours as needed for Nausea and Vomiting (N/V). ondansetron 2020-0 Yes [id number] 4mg Take 1 [facility] 4 mg 7-24 tablet by ity of disintegrat 00:00: mouth [place] ing tablet 00 every 12 Medic al (twelve) Branch hours as needed for Nausea and Vomiting (N/V). ondansetron 1-0 Yes [id number] 4mg Take 1 [facility] 4 mg 7-24 tablet by ity of disintegrat 00:00: mouth [place] ing tablet 00 every 12 Medic al (twelve) Branch hours as needed for Nausea and Vomiting (N/V). ondansetron 0 Yes [id number] 4mg Take 1 [facility] 4 mg 7-24 tablet by ity of disintegrat 00:00: mouth [place] ing tablet 00 every 12 Medic al (twelve) Branch hours as needed for Nausea and Vomiting (N/V). ondansetron 2021- No [id number] 4mg Take 1 [facility] 4 mg 7-24 03-05 tablet by ity of disintegrat 00:00: 00:[place] tablet 00 :00 every 12 Medic al (twelve) Branch hours as needed for Nausea and Vomiting (N/V). traMADoL 2020- No 50mg 50 mg, Univer s (ULTRAM) 01-01 Oral, ity of tablet 50 01:45: 00:45 ONCE, 1 [place] mg 00 :[place] dose, [facility] 12/31/20 at Branch 2044, Routine traMADoL 50 0 Yes [id number] 50mg Take [...] Indication s: acute pain traMADoL 50 2020-0 2021- No [id number] 50mg Take 1 Uni vers mg tablet 7-18 03-05 tablet by ity of 00:00: 00:00 mouth [place] 00 :00 every 6 Medical (six) Branch hours as needed for Pain (scale 7-10). Indication s: acute pain diazePAM No 5mg 5 mg, Univers (VALIUM) 12-10 Intramuscu ity of injection 5 06:00: 05:24 lar, ONCE, [place] mg 00 :00 1 dose, Medical [place] [facility] 12/10/20 at 0100, STAT dexamethaso No 10mg 10 mg, Uni vers ne 12-10 Intramuscu ity of (DECADRON 06:00: 05:29 lar, ONCE, [place] PHOSPHATE) 00 :00 1 dose, Medica l injection [place] [facility] 10 mg 12/10/20 at 0100, STAT ketorolac 2021-0 2021- No 30mg 30 mg, Unive rs (TORADOL) 6-27 06-27 Intramuscu ity of injection 06:00: 05:26 lar, ONCE, [place] 30 mg 00 :00 1 dose, Medical [place] [facility] 12/10/20 at 0100, ÁNGEL
Fa culty member approving Restricted medication : SIMBA CAMPOS ibuprofen 2020-0 Yes [id number] 800mg Take 1 [facility] 800 mg 6-27 tablet by ity of tablet 00:00: mouth [place] 00 every 8 Medical (eight) Branch hours as needed for Pain (scale 4-6). ibuprofen 2020-0 Yes [id number] 800mg Take 1 [facility] 800 mg 6-27 tablet by ity of tablet 00:00: mouth [place] 00 every 8 Medical (eight) Branch hours as needed for Pain (scale 4-6). ibuprofen 2020-0 Yes [id number] 800mg Take 1 [facility] 800 mg 6-27 tablet by ity of tablet 00:00: mouth [place] 00 every 8 Medical (eight) Branch hours as needed for Pain (scale 4-6). ibuprofen 2020-0 Yes [id number] 800mg Take 1 [facility] 800 mg 6-27 tablet by ity of tablet 00:00: mouth [place] 00 every 8 Medical (eight) Branch hours as needed for Pain (scale 4-6). ibuprofen 2020-0 Yes [id number] 800mg Take 1 [facility] 800 mg 6-27 tablet by ity of tablet 00:00: mouth [place] 00 every 8 Medical (eight) Branch hours as needed for Pain (scale 4-6). ibuprofen 2020-0 Yes [id number] 800mg Take 1 [facility] 800 mg 6-27 tablet by ity of tablet 00:00: mouth [place] 00 every 8 Medical (eight) Branch hours as needed for Pain (scale 4-6). ibuprofen 2020-0 Yes [id number] 800mg Take 1 [facility] 800 mg 6-27 tablet by ity of tablet 00:00: mouth [place] 00 every 8 Medical (eight) Branch hours as needed for Pain (scale 4-6). ibuprofen 2020-0 Yes [id number] 800mg Take 1 [facility] 800 mg 6-27 tablet by ity of tablet 00:00: mouth [place] 00 every 8 Medical (eight) Branch hours as needed for Pain (scale 4-6). ibuprofen Yes [id number] 800mg Take 1 [facility] 800 mg 6-27 tablet by ity of tablet 00:00: mouth [place] 00 every 8 Medical (eight) Branch hours as needed for Pain (scale 4-6). ibuprofen 0 Yes [id number] 800mg Take 1 [facility] 800 mg 6-27 tablet by ity of tablet 00:00: mouth [place] 00 every 8 Medical (eight) Branch hours as needed for Pain (scale 4-6). ibuprofen Yes [id number] 800mg Take 1 [facility] 800 mg 6-27 tablet by ity of tablet 00:00: mouth [place] 00 every 8 Medical (eight) Branch hours as needed for Pain (scale 4-6). ibuprofen 2021- No [id number] 800mg Take 1 [facility] 800 mg 6-27 03-05 tablet by ity of tablet 00:00: 00:00 mouth [place] 00 :00 every 8 Medical (eight) Branch hours as needed for Pain (scale 4-6). methocarbam 2020- No [id number] 750mg Take 1 Univers oL 6-27 07-18 tablet by ity of (ROBAXIN-75 00:00: 04:59 mouth 4 [place] 0) 750 mg 00 :00 (four) Medical tablet times Branch daily as needed for Pain (scale 7-10) for up to 20 days. predniSONE 2020- No [id number] 60mg Take 3 Univers 20 mg 6-27 07-03 tablets by ity of tablet 00:00: 04:59 mouth [place] 00 :00 every Medical morning Branch for 5 days. traMADOL 2015-0 Yes 50mg Take 1 Tab [...] capsule 00 times Medical daily. Branch hydrocodone 2011-0 Yes 1{tbl} Take 1-2 Univers -acetaminop 8-25 Tabs by ity o f hen (NORCO 00:00: mouth [place] 5) 5-325 mg 00 every 6 Medic al tablet (six) Branch hours as needed for Pain. hydrocodone 2011-0 Yes 1{tbl} Take 1-2 Univers -acetaminop 8-25 Tabs by ity o f hen (NORCO 00:00: mouth [place] 5) 5-325 mg 00 every 6 Medic al tablet (six) Branch hours as needed for Pain. hydrocodone 2011-0 Yes 1{tbl} Take 1-2 Univers -acetaminop 8-25 [...] tablet 00 times Medical daily. Branch hydrocodone 2021- No 1{tbl} Take 1 Tab Univers -acetaminop 7-22 03-05 by mouth ity of hen (NORCO 00:00: 00:00 every 4 [place] 5) 5-325 mg 00 :00 (four) Medica l tablet hours as Branch needed for Pain. proMETHazin 2021- No 25mg Take 1 Tab Univers e 7-22 03-05 by mouth ity of (PHENERGAN) 00:00: 00:00 every 6 [place] 25 mg 00 :00 (six) Medical tablet hours as Branch needed for Nausea and Vomiting. ranitidine 2021- No 150mg Take 1 Tab Univers (ZANTAC) 01-0405 by mouth 2 ity of 150 mg 00:00: 00:00 (two) [place] tablet 00 :00 times Medical daily. Branch Vital Signs Vital Name Observation Time Observation Value Comments Source Systolic blood 2023-03-02 21:47:00 122 mm[Hg] Univer sity of pressure [facility] Diastolic blood 2023-03-02 21:47:00 94 mm[Hg] Unive rsity of [facility] Heart rate 2023-03-02 21:47:00 98 /min Universi ty of [facility] Body temperature 2023-03-02 21:47:00 37.39 [place] Univ ersity of [facility] Respiratory rate 2023-03-02 21:47:00 16 /min Univ ersity of [facility] Body height 2023-03-02 21:47:00 152.4 cm Universi ty of [facility] Body weight 2023-03-02 21:47:00 70.761 kg Universi ty of [facility] BMI 2023-03-02 21:47:00 30.47 kg/m2 Universi ty of [facility] Oxygen saturation in 2023-03-02 21:47:00 99 /min University of Arterial blood by [place] [employer] [facility] oxim[facility] Branch Systolic blood 2022-09-08 22:46:00 146 mm[Hg] Univer sity of [facility] Diastolic blood 2022-09-08 22:46:00 93 mm[Hg] Unive rsity of [facility] Heart rate 2022-09-08 22:46:00 87 /min Universi ty of [facility] Body temperature 2022-09-08 22:46:00 37.28 [place] Univ ersity [facility] [place] [facility] Respiratory rate 2022-09-08 22:46:00 18 /min Univ ersity of [facility] Body weight 2022-09-08 22:46:00 58.968 kg Universi ty of [facility] BMI 2022-09-08 22:46:00 25.39 kg/m2 Universi ty of [facility] Oxygen saturation in 2022-09-08 22:46:00 99 /min [facility] of Arterial blood by [place] [employer] [facility] Pulse oximetry Branch Systolic blood 2022-08-15 03:27:00 129 mm[Hg] Univer sity of pressure [place] [facility] Diastolic blood 2022-08-15 03:27:00 86 mm[Hg] Unive rsity of pressure [place] [facility] Heart rate 2022-08-15 03:27:00 94 /min [facility]i ty [facility] [place] [facility] Body temperature 2022-08-15 03:27:00 37.5 [place] Univ ersity of [place] [facility] Respiratory rate 2022-08-15 03:27:00 16 /min Univ ersity [facility] [place] [facility] Body height 2022-08-15 03:27:00 152.4 cm [facility]i [facility] [place] [facility] Body weight 2022-08-15 03:27:00 68.04 kg [facility]i [facility] [place] [facility] BMI 2022-08-15 03:27:00 29.29 kg/m2 [facility] [place] [facility] Oxygen saturation in 2022-08-15 03:27:00 97 /min University of Arterial blood by [place] [employer] [facility] Pulse oximetry Branch Systolic blood 2022-05-19 02:40:00 132 mm[Hg] Univer sity of pressure [place] [facility] Diastolic blood 2022-05-19 02:40:00 94 mm[Hg] Unive rsity of pressure [place] [facility] Heart rate 2022-05-19 02:40:00 89 /min [facility]i ty [facility] [place] [facility] Body temperature 2022-05-19 02:40:00 37 [place] Univ ersity of [place] [facility] Respiratory rate 2022-05-19 02:40:00 18 /min Univ ersity of [place] [facility] Body height 2022-05-19 02:40:00 147.3 cm [facility]i ty [facility] [place] [facility] Body weight 2022-05-19 02:40:00 66.679 kg [facility]i [facility] [place] [facility] BMI 2022-05-19 02:40:00 30.72 kg/m2 [facility] ty [facility] [place] [facility] Oxygen saturation in 2022-05-19 02:40:00 100 /min [facility] of Arterial blood by [place] [employer] [facility] Pulse oximetry Branch Systolic blood 2022-02-25 14:46:00 131 mm[Hg] Univer sity of pressure [place] [facility] Diastolic blood 2022-02-25 14:46:00 98 mm[Hg] Unive rsity of pressure [place] [facility] Heart rate 2022-02-25 14:46:00 87 /min [facility]i ty [facility] [place] [facility] Body temperature 2022-02-25 14:46:00 36.94 [place] [facility] ersity of [place] [facility] Respiratory rate 2022-02-25 14:46:00 18 /min Univ ersity of [place] [facility] Body height 2022-02-25 14:46:00 152.4 cm [facility]i [facility] [place] [facility] Body weight 2022-02-25 14:46:00 88.451 kg [facility] [place] [facility] BMI 2022-02-25 14:46:00 38.08 kg/m2 [facility] [place] [facility] Oxygen saturation in 2022-02-25 14:46:00 98 /min [facility] of Arterial blood by [place] [employer] [facility] Pulse oximetry Branch Systolic blood 2022-01-26 21:11:00 131 mm[Hg] Univer sity of pressure [place] [facility] Diastolic blood 2022-01-26 21:11:00 93 mm[Hg] Unive rsity of pressure [place] [facility] Heart rate 2022-01-26 21:11:00 78 /min [facility]i ty [facility] [place] [facility] Body temperature 2022-01-26 21:11:00 36.61 [place] Univ ersity of [place] [facility] Respiratory rate 2022-01-26 21:11:00 16 /min Univ ersity of [place] [facility] Body height 2022-01-26 21:11:00 152.4 cm Universi ty [facility] [place] [facility] Body weight 2022-01-26 21:11:00 88.542 kg [facility] [place] [facility] BMI 2022-01-26 21:11:00 38.12 kg/m2 [facility] [place] [facility] Oxygen saturation in 2022-01-26 21:11:00 98 /min [facility] of Arterial blood by [place] [employer] [facility] Pulse oximetry Branch Systolic blood 2021-11-23 21:11:00 140 mm[Hg] Univer sity of pressure [place] [facility] Diastolic blood 2021-11-23 21:11:00 91 mm[Hg] Unive rsity of pressure [place] [facility] Heart rate 2021-11-23 21:11:00 97 /min [facility]i ty [facility] [place] [facility] Body temperature 2021-11-23 21:11:00 36.56 [place] Univ ersity of [place] [facility] Respiratory rate 2021-11-23 21:11:00 18 /min Univ ersity of [place] [facility] Body weight 2021-11-23 21:11:00 77.111 kg Universi ty [facility] [place] [facility] BMI 2021-11-23 21:11:00 33.20 kg/m2 [facility]i [facility] [place] [facility] Oxygen saturation in 2021-11-23 21:11:00 99 /min [facility] of Arterial blood by [place] [employer] [facility] Pulse oximetry Branch Systolic blood 2021-09-26 21:12:00 142 mm[Hg] Univer sity of pressure [place] [facility] Diastolic blood 2021-09-26 21:12:00 101 mm[Hg] Unive rsity of pressure [place] [facility] Heart rate 2021-09-26 21:12:00 97 /min [facility]i [facility] [place] [facility] Body temperature 2021-09-26 21:12:00 36.11 [place] [facility] ersity of [place] [facility] Respiratory rate 2021-09-26 21:12:00 18 /min Univ ersity of [place] [facility] Body weight 2021-09-26 21:12:00 77.111 kg [facility]i ty [facility] [place] [facility] BMI 2021-09-26 21:12:00 33.20 kg/m2 [facility] [place] [facility] Oxygen saturation in 2021-09-26 21:12:00 99 /min University of Arterial blood by [facility] yevgeniy Pulse oximetry Branch Systolic blood 2021-09-25 01:00:00 147 mm[Hg] Univer sity of pressure [place] [facility] Diastolic blood 2021-09-25 01:00:00 92 mm[Hg] Unive rsity of pressure [place] [facility] Heart rate 2021-09-25 01:00:00 84 /min [facility]i ty [facility] [place] [facility] Respiratory rate 2021-09-25 01:00:00 18 /min Univ ersity of [place] [facility] Oxygen saturation in 2021-09-25 01:00:00 98 /min [facility] Arterial blood by [place] [facility] P[facility]xim[facility] Body temperature 2021-09-24 23:39:00 36.67 [place] [facility] ersity [facility] [place] [facility] Body height 2021-09-24 23:39:00 152.4 cm [facility]i ty [facility] [place] [facility] Body weight 2021-09-24 23:39:00 77.111 kg [facility] [place] [facility] BMI 2021-09-24 23:39:00 33.20 kg/m2 [facility] [place] [facility] Systolic blood 2021-08-18 13:06:00 127 mm[Hg] Univer sity of pressure [place] [facility] Diastolic blood 2021-08-18 13:06:00 77 mm[Hg] Unive rsity of pressure [place] [facility] Heart rate 2021-08-18 13:06:00 102 /min [facility]i ty [facility] [place] [facility] Respiratory rate 2021-08-18 13:06:00 20 /min Univ ersity of [place] [facility] Oxygen saturation in 2021-08-18 13:06:00 98 /min [facility] of Arterial blood by [place] [facility] Pulse oximetry Branch Body temperature 2021-08-18 11:55:00 37.61 [place] [facility] ersity of [place] [facility] Body height 2021-08-18 11:55:00 152.4 cm [facility]i ty [facility] [place] [facility] Body weight 2021-08-18 11:55:00 76.658 kg [facility] [place] [facility] BMI 2021-08-18 11:55:00 33.01 kg/m2 [facility] [place] [facility] Systolic blood 2021-06-22 22:36:00 121 mm[Hg] Univer sity of pressure [place] [facility] Diastolic blood 2021-06-22 22:36:00 86 mm[Hg] Unive rsity of pressure [place] [facility] Heart rate 2021-06-22 22:36:00 98 /min [facility]i ty [facility] [place] [facility] Body temperature 2021-06-22 22:36:00 36.78 [place] Univ ersity of [place] [facility] Respiratory rate 2021-06-22 22:36:00 19 /min Univ ersity of [place] [facility] Body height 2021-06-22 22:36:00 149.9 cm [facility]i [facility] [place] [facility] Body weight 2021-06-22 22:36:00 85.73 kg [facility] [place] [facility] BMI 2021-06-22 22:36:00 38.17 kg/m2 [facility] [place] [facility] Oxygen saturation in 2021-06-22 22:36:00 100 /min [facility] of Arterial blood by [place] [facility]i yevgen[facility] Pulse oximetry Branch Systolic blood 2021-05-18 23:09:00 133 mm[Hg] Univer sity of pressure [place] [facility] Diastolic blood 2021-05-18 23:09:00 86 mm[Hg] Unive rsity of pressure [place] [facility] Heart rate 2021-05-18 23:09:00 100 /min [facility]i ty [facility] [place] [facility] Body temperature 2021-05-18 23:09:00 36.83 [place] Univ ersity of [place] [facility] Respiratory rate 2021-05-18 23:09:00 16 /min Univ ersity of [place] [facility] Body height 2021-05-18 23:09:00 152.4 cm [facility]i [facility] [place] [facility] Body weight 2021-05-18 23:09:00 85.73 kg [facility]i ty [facility] [place] [facility] BMI 2021-05-18 23:09:00 36.91 kg/m2 [facility] ty [facility] [place] [facility] Oxygen saturation in 2021-05-18 23:09:00 97 /min University of Arterial blood by [place] [facility] Pulse oximetry Branch Systolic blood 2021-03-03 22:11:00 141 mm[Hg] Univer sity of pressure [place] [facility] Diastolic blood 2021-03-03 22:11:00 85 mm[Hg] Unive rsity of pressure [place] [facility] Heart rate 2021-03-03 22:11:00 97 /min [facility]i ty [facility] [place] [facility] Body temperature 2021-03-03 22:11:00 37.11 [place] Univ ersity of [place] [facility] Respiratory rate 2021-03-03 22:11:00 16 /min Univ ersity of [place] [facility] Body height 2021-03-03 22:11:00 152.4 cm [facility]i ty [facility] [place] [facility] Body weight 2021-03-03 22:11:00 68.04 kg [facility]i [facility] [place] [facility] BMI 2021-03-03 22:11:00 29.29 kg/m2 [facility] ty [facility] [place] [facility] Oxygen saturation in 2021-03-03 22:11:00 97 /min [facility] of Arterial blood by [place] [employer] [facility] Pulse oximetry Branch Systolic blood 2021-01-23 03:39:00 126 mm[Hg] Univer sity of pressure [place] [facility] Diastolic blood 2021-01-23 03:39:00 91 mm[Hg] Unive rsity of pressure [place] [facility] Heart rate 2021-01-23 03:39:00 89 /min [facility]i ty [facility] [place] [facility] Respiratory rate 2021-01-23 03:39:00 16 /min Univ ersity of [place] [facility] Oxygen saturation in 2021-01-23 03:39:00 98 /min University of Arterial blood by [facility] Pulse oximetry Branch Body temperature 2021-01-23 01:34:00 37.67 [place] [facility] ersity of [place] [facility] Body height 2021-01-23 01:34:00 152.4 cm [facility]i ty [facility] [place] [facility] Body weight 2021-01-23 01:34:00 68.04 kg [facility] [place] [facility] BMI 2021-01-23 01:34:00 29.29 kg/m2 [facility] [place] [facility] Systolic blood 2021-01-23 03:39:00 126 mm[Hg] Univer sity of pressure [place] [facility] Diastolic blood 2021-01-23 03:39:00 91 mm[Hg] Unive rsity of pressure [place] [facility] Heart rate 2021-01-23 03:39:00 89 /min [facility]i [facility] [place] [facility] Respiratory rate 2021-01-23 03:39:00 16 /min Univ ersity of [place] [facility] Oxygen saturation in 2021-01-23 03:39:00 98 /min University of Arterial blood by [facility] Pulse oximetry Branch Body temperature 2021-01-23 01:34:00 37.67 [place] [facility] ersity of [place] [facility] Body height 2021-01-23 01:34:00 152.4 cm [facility]i ty [facility] [place] [facility] Body weight 2021-01-23 01:34:00 68.04 kg [facility] [place] [facility] BMI 2021-01-23 01:34:00 29.29 kg/m2 [facility] [place] [facility] Systolic blood 2021-01-08 16:42:00 118 mm[Hg] Univer sity of pressure [place] [facility] Diastolic blood 2021-01-08 16:42:00 85 mm[Hg] Unive rsity of pressure [place] [facility] Heart rate 2021-01-08 16:42:00 89 /min [facility]i ty [facility] [place] [facility] Body temperature 2021-01-08 16:42:00 36.78 [place] Univ ersity of [place] [facility] Respiratory rate 2021-01-08 16:42:00 18 /min Univ ersity of [place] [facility] Body weight 2021-01-08 16:42:00 72.576 kg [facility]i ty [facility] [place] [facility] BMI 2021-01-08 16:42:00 31.25 kg/m2 [facility] [place] [facility] Oxygen saturation in 2021-01-08 16:42:00 98 /min [facility] Arterial blood by [place] [facility] Pulse oximetry Branch Systolic blood 2021-01-08 16:42:00 118 mm[Hg] Univer sity of pressure [place] [facility] Diastolic blood 2021-01-08 16:42:00 85 mm[Hg] Unive rsity of pressure [place] [facility] Heart rate 2021-01-08 16:42:00 89 /min [facility]i [facility] [place] [facility] Body temperature 2021-01-08 16:42:00 36.78 [place] [facility] ersity of [place] [facility] Respiratory rate 2021-01-08 16:42:00 18 /min Univ ersity of [place] [facility] Body weight 2021-01-08 16:42:00 72.576 kg [facility]i ty [facility] [place] [facility] BMI 2021-01-08 16:42:00 31.25 kg/m2 [facility] [place] [facility] Oxygen saturation in 2021-01-08 16:42:00 98 /min [facility] of Arterial blood by [place] [facility] Pulse oximetry Branch Systolic blood 2021-01-06 07:57:17 130 mm[Hg] Univer sity of pressure [place] [facility] Diastolic blood 2021-01-06 07:57:17 80 mm[Hg] Unive rsity of pressure [place] [facility] Heart rate 2021-01-06 07:57:17 85 /min [facility]i ty [facility] [place] [facility] Respiratory rate 2021-01-06 07:57:17 16 /min Univ ersity of [place] [facility] Oxygen saturation in 2021-01-06 07:57:17 98 /min [facility] of Arterial blood by [place] [facility] Pulse oximetry Branch Body temperature 2021-01-06 05:25:00 36.72 [place] [facility] ersity [facility] [place] [facility] Body height 2021-01-06 05:25:00 152.4 cm [facility]i ty [facility] [place] [facility] Body weight 2021-01-06 05:25:00 72.576 kg [facility] [place] [facility] BMI 2021-01-06 05:25:00 31.25 kg/m2 [facility] [place] [facility] Systolic blood 2021-01-06 07:57:17 130 mm[Hg] Univer sity of pressure [place] [facility] Diastolic blood 2021-01-06 07:57:17 80 mm[Hg] Unive rsity of pressure [place] [facility] Heart rate 2021-01-06 07:57:17 85 /min [facility]i ty [facility] [place] [facility] Respiratory rate 2021-01-06 07:57:17 16 /min Univ ersity of [place] [facility] Oxygen saturation in 2021-01-06 07:57:17 98 /min [facility] of Arterial blood by [place] [employer] [facility] Pulse oximetry Branch Body temperature 2021-01-06 05:25:00 36.72 [place] [facility] ersity [facility] [place] [facility] Body height 2021-01-06 05:25:00 152.4 cm [facility]i [facility] [place] [facility] Body weight 2021-01-06 05:25:00 72.576 kg [facility] [place] [facility] BMI 2021-01-06 05:25:00 31.25 kg/m2 [facility] [place] [facility] Systolic blood 2021-01-01 01:44:12 122 mm[Hg] Univer sity of pressure [place] [facility] Diastolic blood 2021-01-01 01:44:12 82 mm[Hg] Unive rsity of pressure [place] [facility] Heart rate 2021-01-01 01:44:12 64 /min [facility]i ty [facility] [place] [facility] Respiratory rate 2021-01-01 01:44:12 16 /min Univ ersity of [place] [facility] Oxygen saturation in 2021-01-01 01:44:12 100 /min [facility] of Arterial blood by [place] [employer] [facility] Pulse oximetry Branch Body temperature 2020-12-31 23:25:00 37.06 [place] [facility] ers[facility] [place] [facility] Body weight 2020-12-31 23:25:00 81.647 kg [facility] [place] [facility] BMI 2020-12-31 23:25:00 35.15 kg/m2 [facility] [place] [facility] Systolic blood 2021-01-01 01:44:12 122 mm[Hg] Univer sity of pressure [place] [facility] Diastolic blood 2021-01-01 01:44:12 82 mm[Hg] Unive rsity of pressure [facility] Heart rate 2021-01-01 01:44:12 64 /min [facility]i ty [facility] [place] [facility] Respiratory rate 2021-01-01 01:44:12 16 /min Univ ersity of [place] [facility] Oxygen saturation in 2021-01-01 01:44:12 100 /min University of Arterial blood by [facility] yevgeniy Pulse oximetry Branch Body temperature 2020-12-31 23:25:00 37.06 [place] [facility] [place] [facility] Body weight 2020-12-31 23:25:00 81.647 kg [facility] [place] [facility] BMI 2020-12-31 23:25:00 35.15 kg/m2 [facility] [place] [facility] Systolic blood 2020-12-10 06:00:00 112 mm[Hg] [facility] [place] [facility] Diastolic blood 2020-12-10 06:00:00 70 mm[Hg] [facility] [place] [facility] Heart rate 2020-12-10 06:00:00 84 /min [facility] [place] [facility] Respiratory rate 2020-12-10 06:00:00 16 /min [facility] [place] [facility] Oxygen saturation in 2020-12-10 06:00:00 99 /min [facility] of Arterial blood by [facility] yevgeniy Pulse oximetry Branch Body temperature 2020-12-10 01:40:00 37.11 [place] [facility] [place] [facility] Body weight 2020-12-10 01:40:00 81.647 kg [facility] [place] [facility] BMI 2020-12-10 01:40:00 35.15 kg/m2 [facility] [place] [facility] Systolic blood 2020-12-10 06:00:00 112 mm[Hg] [facility] [place] [facility] Diastolic blood 2020-12-10 06:00:00 70 mm[Hg] [facility] [place] [facility] Heart rate 2020-12-10 06:00:00 84 /min [facility] [place] [facility] Respiratory rate 2020-12-10 06:00:00 16 /min [facility] [place] [facility] Oxygen saturation in 2020-12-10 06:00:00 99 /min [facility] of Arterial blood by [facility] yevgeniy Pulse oximetry Branch Body temperature 2020-12-10 01:40:00 37.11 [place] [facility] [place] [facility] Body weight 2020-12-10 01:40:00 81.647 kg [facility] BMI 2020-12-10 01:40:00 35.15 kg/m2 [facility] BP Systolic 2021-12-18 17:01:00 123 mm[Hg] BP Diastolic 2021-12-18 17:01:00 85 mm[Hg] Weight Measured 2021-12-18 17:01:00 199.20 pounds Height Measured 2021-12-18 17:01:00 60.00 inches Body Temperature 2021-12-18 17:01:00 Heart Rate 2021-12-18 17:01:00 110.00 /min Respiratory Rate 2021-12-18 17:01:00 BP Systolic 2021-12-10 17:38:00 119 mm[Hg] BP Diastolic 2021-12-10 17:38:00 81 mm[Hg] Weight Measured 2021-12-10 17:38:00 196.20 pounds Height Measured 2021-12-10 17:38:00 60.00 inches Body Temperature 2021-12-10 17:38:00 98.30 degrees Heart Rate 2021-12-10 17:38:00 83.00 /min Respiratory Rate 2021-12-10 17:38:00 18.00 /min BP Systolic 2021-09-21 15:57:00 112 mm[Hg] BP Diastolic 2021-09-21 15:57:00 73 mm[Hg] Weight Measured 2021-09-21 15:57:00 196.20 pounds Height Measured 2021-09-21 15:57:00 60.00 inches Body Temperature 2021-09-21 15:57:00 97.50 degrees Heart Rate 2021-09-21 15:57:00 94.00 /min Respiratory Rate 2021-09-21 15:57:00 BP Systolic 2021-09-14 16:21:00 132 mm[Hg] BP Diastolic 2021-09-14 16:21:00 88 mm[Hg] Weight Measured 2021-09-14 16:21:00 195.80 pounds Height Measured 2021-09-14 16:21:00 60.00 inches Body Temperature 2021-09-14 16:21:00 97.40 degrees Heart Rate 2021-09-14 16:21:00 98.00 /min Respiratory Rate 2021-09-14 16:21:00 16.00 /min Heart Rate 2021-07-19 16:26:00 79.00 /min Respiratory Rate 2021-07-19 16:26:00 BP Systolic 2021-07-19 16:26:00 122 mm[Hg] BP Diastolic 2021-07-19 16:26:00 84 mm[Hg] Weight Measured 2021-07-19 16:26:00 197.20 pounds Height Measured 2021-07-19 16:26:00 60.00 inches Body Temperature 2021-07-19 16:26:00 97.40 degrees BP Systolic 2021-05-07 16:34:00 116 mm[Hg] BP Diastolic 2021-05-07 16:34:00 76 mm[Hg] Weight Measured 2021-05-07 16:34:00 193.40 pounds Height Measured 2021-05-07 16:34:00 60.00 inches Body Temperature 2021-05-07 16:34:00 97.80 degrees Heart Rate 2021-05-07 16:34:00 90.00 /min Respiratory Rate 2021-05-07 16:34:00 BP Systolic 2021-04-02 17:38:00 122 mm[Hg] BP Diastolic 2021-04-02 17:38:00 80 mm[Hg] Weight Measured 2021-04-02 17:38:00 192.20 pounds Height Measured 2021-04-02 17:38:00 60.00 inches Body Temperature 2021-04-02 17:38:00 97.80 degrees Heart Rate 2021-04-02 17:38:00 88.00 /min Respiratory Rate 2021-04-02 17:38:00 BP Systolic 2021-03-22 16:31:00 122 mm[Hg] BP Diastolic 2021-03-22 16:31:00 81 mm[Hg] Weight Measured 2021-03-22 16:31:00 191.00 pounds Height Measured 2021-03-22 16:31:00 60.00 inches Body Temperature 2021-03-22 16:31:00 98.10 degrees Heart Rate 2021-03-22 16:31:00 77.00 /min Respiratory Rate 2021-03-22 16:31:00 BP Systolic 2021-03-15 16:42:00 118 mm[Hg] BP Diastolic 2021-03-15 16:42:00 76 mm[Hg] Weight Measured 2021-03-15 16:42:00 190.00 pounds Height Measured 2021-03-15 16:42:00 60.00 inches Body Temperature 2021-03-15 16:42:00 98.20 degrees Heart Rate 2021-03-15 16:42:00 95.00 /min Respiratory Rate 2021-03-15 16:42:00 Procedures Procedure Date / Time Performing Clinician Source Performed ASSIGNMENT OF BENEFITS 2023-03-02 22:32:49 Doctor Unassigned, No [facility] Branch POCT TEST 2023-03-02 22:30:00 Jaleel Ace [facility] URINALYSIS 2023-03-02 22:27:00 Jaleel Ace [facility] CONSENT/REFUSAL FOR 2023-03-02 21:36:46 Doctor Unassigned, No [facility] [place] [facility] Name Medical Branch POCT TEST 2022-09-08 23:23:00 Anna Marie Lawrence [facility] [place] CONSENT/REFUSAL FOR 2022-09-08 22:43:41 Doctor Unassigned, No [facility] [place] [facility] Name Medical Branch NOTICE OF PRIVACY 2022-08-15 03:17:39 Doctor Unassigned, No Univ [facility]ity [facility] PRACT[facility] Name Medical Branch CONSENT/REFUSAL FOR 2022-08-15 03:17:00 Doctor Unassigned, No [facility] [place] [facility] Name Medical Branch CONSENT/REFUSAL FOR 2022-05-19 02:28:41 Doctor Unassigned, No [facility] [place] [facility] Name Medical Branch COVID-19 (ID NOW RAPID 2022-02-25 14:54:00 Anna Marie Lawrence [facility] TESTING) Medical Branch CONSENT/REFUSAL FOR 2022-02-25 14:43:32 Doctor Unassigned, No [facility] [place] [facility] Name Medical Branch XR ANKLE 3+ VW 2022-01-26 22:13:00 Petty Bailey [place] BIL[place] Medical Branch XR FEMUR 2 VW RIGHT 2022-01-26 22:13:00 Petty Bailey [facility] Medical Branch XR TIBIA FIBULA 2 VW 2022-01-26 22:13:00 Petty Bailey [facility] Branch CONSENT/REFUSAL FOR 2022-01-26 20:54:27 Doctor Unassigned, No [facility] [place] [facility] Name Medical Branch XR KNEE 3 VW RIGHT 2021-11-23 21:52:00 Brandon Rapp [facility] CONSENT/REFUSAL FOR 2021-11-23 21:06:56 Doctor Unassigned, No [facility] [place] [facility] Name Medical Branch XR ANKLE 3+ VW RIGHT 2021-09-26 21:52:00 Joyce Bello [facility] CONSENT/REFUSAL FOR 2021-09-26 20:49:12 Doctor Unassigned, No [facility] [place] [facility] ED SPLINT APPLICATION 2021-09-25 01:31:57 Kadeem Anderson [facility] XR ANKLE 3+ VW LEFT 2021-09-25 00:17:00 Kadeem Anderson [facility] Branch XR KNEE 3 VW RIGHT 2021-09-25 00:17:00 Kadeem Anderson [facility] XR TIBIA FIBULA 2 VW 2021-09-25 00:17:00 Kadeem Anderson [facility] CONSENT/REFUSAL FOR 2021-09-24 23:18:51 Doctor Unassigned, No [facility] [place] [facility] Name [facility] POCT TEST 2021-08-18 13:11:00 Joyce Bello [facility] COMP. METABOLIC PANEL 2021-08-18 12:11:00 Joyce Bello [facility] ([id number]) [facility] CBC WITH DIFF 2021-08-18 12:11:00 Joyce Bello [facility] NOTICE OF PRIVACY 2021-08-18 11:47:07 Doctor Unassigned, No [facility] PRACTICES Name Medical Branch CONSENT/REFUSAL FOR 2021-08-18 11:45:28 Doctor Unassigned, No [facility] [place] [facility] Name Medical Branch XR SHOULDER 2+ VW LEFT 2021-06-22 23:22:00 [facility] CONSENT/REFUSAL FOR 2021-06-22 22:32:46 Doctor Unassigned, No [facility] [place] [facility] Name Medical Branch NOTICE OF PRIVACY 2021-06-22 22:32:11 Doctor Unassigned, No Univ [facility] Name Medical Branch XR ANKLE 3+ VW LEFT 2021-05-18 23:39:19 [facility] [place] [facility] [place] XR TIBIA FIBULA 2 VW 2021-05-18 23:39:19 Nelson Jones [facility] ity [facility] Branch NOTICE OF PRIVACY 2021-05-18 23:06:10 Doctor Unassigned, No Univ ersity of [facility] Medical Branch CONSENT/REFUSAL FOR 2021-05-18 23:05:34 Doctor Unassigned, No [facility] [place] [facility] Name Medical Branch XR ANKLE 3+ VW LEFT 2021-03-03 22:44:43 [facility] POCT TEST 2021-01-23 03:16:00 Ashley Hoffman [facility] ity [facility] Medical Branch XR ANKLE 3+ VW LEFT 2021-01-23 02:21:27 Ashley Hoffman [facility] ity [facility] Medical Branch XR FOOT 3+ VW LEFT 2021-01-23 02:21:27 Ashley Hoffman [facility] [place] [facility] XR KNEE 3 VW LEFT 2021-01-23 02:21:27 [facility] [place] [facility] XR TIBIA FIBULA 2 VW 2021-01-23 02:21:27 Ashley Hoffman [facility] [place] CONSENT/REFUSAL FOR 2021-01-23 01:04:20 Doctor Unassigned, No [facility] [place] [facility] Name Medical Branch POCT TEST 2021-01-08 16:54:00 [facility] LIPASE 2021-01-08 16:51:00 Joyce Bello [facility] HEPATIC FUNCTION PANEL 2021-01-08 16:51:00 [facility] [place] [id number] (ALB,T.PRO,BILI Medical Branch T,BU/BC,ALT,AST,ALK PHOS) BASIC METABOLIC PANEL 2021-01-08 16:51:00 Joyce Bello [facility] [place] (NA, K, CL, CO2, Medical Branch GLUCOSE, BUN, CREATININE, CA) CBC WITH DIFF 2021-01-08 16:51:00 Joyce Bello [facility] URINALYSIS 2021-01-08 16:51:00 Joyce Bello [facility] CONSENT/REFUSAL FOR 2021-01-08 16:36:20 Doctor Unassigned, No [facility] [place] [facility] Name [facility] RAPID STREP SCREEN FOR 2021-01-06 07:24:00 AnaidBar nichole [facility] GROUP A Medical Branch URINALYSIS 2021-01-06 06:36:00 Bar Worrell [place] [facility] COVID-19 (ID NOW RAPID 2021-01-06 06:29:00 AnaidBar nichole [facility] TESTING) Medical Branch CONSENT/REFUSAL FOR 2021-01-06 05:04:46 Doctor Unassigned, No [facility] [place] [facility] Name [facility] XR ANKLE 3+ VW LEFT 2021-01-01 01:00:37 Cassandra Cash [facility] CONSENT/REFUSAL FOR 2020-12-31 23:11:51 Doctor Unassigned, No [facility] [place] [facility] Name [facility] NOTICE OF PRIVACY 2020-12-31 23:11:21 Doctor Unassigned, No [facility] PRACTICES Name [facility] URINALYSIS 2020-12-10 04:45:00 Hammad Castellanos [facility] XR LUMBAR SPINE 2 VW 2020-12-10 04:44:46 Hammad Castellanos [facility] POCT TEST 2020-12-10 04:41:00 Hammad Castellanos [facility] Plan of Care Planned Activity Planned Date Details Comments Source Goal Plan of Care Note [code = 48599-0] Goal Plan of Care Note [code = 98582-5] Goal Plan of Care Note [code = 40169-3] Goal Plan of Care Note [code = 04322-4] Goal Plan of Care Note [code = 16589-8] Goal Plan of Care Note [code = 50869-7] Goal Plan of Care Note [code = 44304-6] Goal Plan of Care Note [code = 66105-4] Goal Plan of Care Note [code = 59051-9] Goal Plan of Care Note [code = 45613-9] Goal Plan of Care Note [code = 79356-1] Goal Plan of Care Note [code = 70548-6] Goal Plan of Care Note [code = 32335-7] Goal Plan of Care Note [code = 52093-1] Goal Plan of Care Note [code = 44880-7] Goal Plan of Care Note [code = 15385-1] Goal Plan of Care Note [code = 25225-9] Goal Plan of Care Note [code = 25407-2] Goal Plan of Care Note [code = 27955-7] Goal Plan of Care Note [code = 53520-3] Goal Plan of Care Note [code = 97751-8] Goal Plan of Care Note [code = 52781-4] Goal Plan of Care Note [code = 76558-7] Goal Plan of Care Note [code = 52691-9] Goal Plan of Care Note [code = 57835-9] Goal Plan of Care Note [code = 39717-5] Goal Plan of Care Note [code = 38494-7] Goal Plan of Care Note [code = 46237-0] Goal Plan of Care Note [code = 79828-8] Goal Plan of Care Note [code = 74495-0] Goal Plan of Care Note [code = 20915-7] Goal Plan of Care Note [code = 01198-5] Goal Plan of Care Note [code = 25502-3] Goal Plan of Care Note [code = 37523-5] Goal Plan of Care Note [code = 92000-1] Goal Plan of Care Note [code = 71996-9] Goal Plan of Care Note [code = 81142-0] Goal Plan of Care Note [code = 47760-5] Goal Plan of Care Note [code = 15443-0] Goal Plan of Care Note [code = 76693-0] Goal Plan of Care Note [code = 67781-5] Goal Plan of Care Note [code = 13898-0] Goal Plan of Care Note [code = 57355-0] Goal Plan of Care Note [code = 84522-4] Goal Plan of Care Note [code = 72060-3] Goal Plan of Care Note [code = 89308-1] Encounters Start End Encounter Admission Attending Care Care Encounter Source Date/Time Date/Time Type Type Clinicians Facility Department ID 2023-03-02 2023-03-02 Emergency X KOFI [facility] ERT [id number] Univers 16:50:00 18:48:00 JALEEL tomlin [facility] 2023-03-02 2023-03-02 Emergency Kofi [facility] [id number] Univers 16:50:00 18:48:00 Jaleel ANAND [id number] ity [facility] [id number] [facility] [id number] [address] 2022-09-08 2022-09-08 Emergency X Anna Marie LAWRENCE [facility] ERT [id number] Univers 17:47:00 21:01:00 itanjali [facility] 2022-09-08 2022-09-08 Emergency Petty Bailey [facility] 1.2.840.1 [id number] Univers 17:47:00 21:01:00 Anna Marie Lawrence [id number] ity [place] 4.2.7.2.686 [facility] [id number] [address] 2022-08-14 2022-08-14 Emergency [facility] [id number] Univers 21:28:00 23:04:00 PETTY tomlin [facility] 2022-08-14 2022-08-14 Emergency [facility] [id number] Univers 21:28:00 23:04:00 Petty ANAND [id number] i ty [facility] [id number] [facility] [id number] [address] 2022-05-18 2022-05-18 Emergency X DIONTE [facility] ERT [id number] Univers 20:47:00 21:24:00 BRANDON anjali [facility] 2022-05-18 2022-05-18 Emergency [facility] [id number] Univers 20:47:00 21:24:00 Brandon ANAND [id number] i [place] 4.2.7.2.686 [facility] [id number] [address] 2022-02-25 2022-02-25 Emergency X Anna Marie LA[facility]ENCE [facility] ERT [id number] Univers 09:48:00 10:51:00 ity [facility] 2022-02-25 2022-02-25 Emergency Anna Marie Lawrence [facility] [id number] Univers 09:48:00 10:51:00 Linda ANAND [id number] i ty of [facility] 4.2.7.2.686 [facility] [id number] [address] 2022-01-26 2022-01-26 Emergency X ZOFIA [facility] ERT [id number] Univers 16:14:00 18:22:00 PETTYETHAN tomlin [facility] 2022-01-26 2022-01-26 Emergency Brandon Rapp [facility] 1.2.840. 114 [id number] Univers 16:14:00 18:22:00 Petty Bailey [id number] ity [facility] [id number] [facility] [id number] [address] 2021-12-18 2021-12-18 Outpatient [id number] 00:00:00 00:00:00 Visit [id number] 2021-12-10 2021-12-10 Outpatient [id number] 00:00:00 00:00:00 Visit [id number] 2021-11-23 2021-11-23 Emergency X DIONTE [facility] ERT [id number] Univers 16:12:00 17:43:00 BRANDON wallyanjali [facility] 2021-11-23 2021-11-23 Emergency [facility] 1.2.016.061 [id number] Univers 16:12:00 17:43:00 Brandon ANAND [id number] i ty [place] 4.2.7.2.686 [facility] [id number] [address] 2021-09-26 2021-09-26 Emergency [facility] ERT [id number] Univers 16:14:00 17:07:00 JOYCE tomlin [facility] 2021-09-26 2021-09-26 Tiff [facility] 1.2.840.114 [id number] Univers 16:14:00 17:07:00 Joyce ANAND [id number] ity [facility] [id number] [facility] [id number] [address] 2021-09-24 2021-09-24 Emergency [facility]RT [id number] Univers 18:41:00 20:17:00 KADEEM tomlin [facility] 2021-09-24 2021-09-24 Emergency Abel [facility] 1.2.740.577 [id number] Univers 18:41:00 20:17:00 Kadeem ANAND [id number] i ty [place] 4.2.7.2.686 [facility] [id number] [address] 2021-08-18 2021-08-18 Emergency Jesse [facility] ERT [id number] Univers 05:50:00 07:49:00 JOYCE tomlin [facility] 2021-08-18 2021-08-18 Tiff Bello [facility] 1.2.840.114 [id number] Univers 05:50:00 07:49:00 Joyce ANAND [id number] ity of [facility] [id number] [facility] [id number] [address] 2021-06-22 2021-06-22 Emergency X [facility] ERT [id number] Univers 16:39:00 18:27:00 NELSON itanjali [facility] 2021-06-22 2021-06-22 Emergency [facility] [id number] [id number] Univers 16:39:00 18:27:00 Nelson Ingram [place] [id number] i ty of [place] 4.2.7.2.686 [facility] [id number] [address] 2021-05-18 2021-05-18 Emergency X [facility] ERT [id number] Univers 17:15:00 18:51:00 NELSON itanjali [facility] 2021-05-18 2021-05-18 Emergency [facility] [id number] Univers 17:15:00 18:51:00 Nelson Ingram GALENCARINA [id number] i ty of [place] 4.2.7.2.686 [facility] [id number] [address] 2021-03-03 2021-03-03 [facility] 1.2.840.114 [id number] Univers 17:12:00 18:23:00 Joyce Anand 350.1.13.10 ity of [place] 4.2.7.2.686 [facility] [id number] [address] 2021-03-03 2021-03-03 Emergency X [facility] ERT [id number] Univers 17:12:00 17:12:00 JOYCE tomlin [facility] 2021-01-22 2021-01-22 [facility] 1.2.840.114 [id number] 20:36:00 22:45:00 Ashley Anand 350.1.13.10 [place] 4.2.7.2.686 [place] [id number] [facility] 2021-01-22 2021-01-22 [facility] 1.2.840.114 [id number] Univers 20:36:00 22:45:00 Ashley Anand 350.1.13.10 i ty [place]2.7.2.686 [place] [id number] [facility] [place] [facility] 084 Branch 2021-01-22 2021-01-22 Emergency [facility]RT [id number] Univers 20:36:00 22:45:00 ASHLEY tomlin of [facility] 2021-01-22 2021-01-22 DAVID Wylie 1.2.840.114 [id number] 00:00:00 00:00:00 Triage Isabelle Partida CHERYL 350.1.13.10 [facility] 4.2.7.2.686 [id number] 2021-01-22 2021-01-22 Orders Doctor HERNANDEZ 1.2.840.114 [id number] 00:00:00 00:00:00 Only Unassigned, CHERYL 350.1.13.10 [place] [facility] 4.2.7.2.686 [id number] 2021-01-22 2021-01-22 DAVID Wylie 1.2.840.114 [id number] Univers 00:00:00 00:00:00 Triage Isabelle LUNA 350.1.13.10 ity of HOSPITAL 4.2.7.2.686 [place] [id number] [facility] [place] [facility] 019 [place] 2021-01-22 2021-01-22 Orders Doctor HERNANDEZ 1.2.840.114 [id number] Univers 00:00:00 00:00:00 Only Unassigned, CHERYL 350.1.13.10 ity of [place] [facility] 4.2.7.2.686 [place] [id number] [facility] [place] [facility] 00[address] [place] 2021-01-08 2021-01-08 Emergency [facility] 1.2.840.114 [id number] 11:45:00 13:10:00 Joyce Anand 350.1.13.10 [place] 4.2.7.2.686 [place] [id number] [facility] 2021-01-08 2021-01-08 [facility] 1.2.840.114 [id number] Univers 11:45:00 13:10:00 Joyce Anand 350.1.13.10 ity of [place] 4.[address].7.[address] [place] [id number] 2021-01-08 2021-01-08 Emergency X [facility] ERT [id number] Univers 11:36:00 11:36:00 ity [facility] 2021-01-06 2021-01-06 Emergency [facility] 1.2.605.373 [id number] 00:28:00 03:00:00 Paulanani Derek 350.1.13.10 [place] [address] [place] [address] [id number] [facility] 2021-01-06 2021-01-06 Emergency [facility] 1.2.804.404 [id number] Univers 00:28:00 03:00:00 Bar Anand 350.1.13.10 i ty of [place] 4.[address] [place] [id number] 2021-01-06 2021-01-06 Emergency X [facility] ERT [id number] Univers 00:04:00 00:04:00 ity [facility] 2020-12-31 2020-12-31 Emergency [facility] 1.2.840.114 [id number] 18:26:00 21:47:00 Cassandra Anand 350.1.13.10 [place] [address] [place] [address] [id number] [facility] 2020-12-31 2020-12-31 Emergency [facility] 1.2.840.114 [id number] Univers 18:26:00 21:47:00 Cassandra Anand 350.1.13.10 ity [facility] 4.2.7.[address] [place] [id number] 2020-12-31 2020-12-31 Emergency X [facility], [facility] ERT [id number] Univers 18:26:00 18:26:00 FOLUSHO ity [facility] 2020-12-09 2020-12-10 Emergency [place], [facility] 1.2.840.114 [id number] 20:42:00 01:58:00 Hammadanjali Anand 350.1.13.10 [place] 4.2.7.2.686 [place] [id number] [facility] 2020-12-09 2020-12-10 Emergency [place], [facility] 1.2.840.114 [id number] Univers 20:42:00 01:58:00 Hammad B [place] 350.1.13.10 i ty of [place] 4.2.7.2.686 [facility] [id number] [address] 2020-12-09 2020-12-09 Emergency X EMANUEL, [facility] ERT [id number] Univers 20:42:00 20:42:00 [facility] 2020-11-16 2020-11-16 Emergency JADE, SSET QER [id number] 9- [facility] 16:01:00 16:01:00 HAILE [id number] [facility] [facility] 2020-10-08 2020-10-08 Emergency JADE, BHSSET QER [id number] 9- [facility] 02:51:00 02:51:00 HAILE [id number] [facility] [facility] Results Test Description Test Time Test Comments Results Result Comments Source POCT TEST 2023-03-02 22:30:00 Test Item Value Reference Range Interpretation Comme nts POCT PREG (test code = 1605) Negative On board controls acceptable with C Line (test code = 3574) Yes POCT PREG LOT # (test code = 3575) [id number] POCT PREG TEST DATE (test code = 3576) 06/18/2024 Lab Interpretation (test code = 42692-1) [id number] 23:23:00 Test Item Value Reference Range Interpretation Comments POCT PREG (test code = 1605) negative On board controls acceptable with C present Line (test code = 3574) POCT PREG TEST DATE (test [id number] code = 3576) Lab Interpretation (test code = Normal 28215-0) [facility]/NG, NAAT, [id number] 19:21:23 Test Item Value Reference Range Interpretation Comments GONORRHEA, NAAT NEGATIVE NEGATIVE IMPORTA NT NOTICE: SEE (test code = [place] [address]) [email or web address] Note: Assay methodology is nucleic acid amplification b y pit supervisor mediated amplification ( TMA) utilizing the A ptima Combo 2 Assay. CHLAMYDIA, NAAT NEGATIVE NEGATIVE IMPORTA NT NOTICE: SEE (test code = [place] [address]) [email or web address] Note: Assay methodology is nucleic acid amplification b y pit supervisor mediated amplification ( TMA) utilizing the A ptima Combo 2 Assay. UNLESS OTHERWISE INDICATED, ALL TESTING PERFORMED [facility] [address] [place] [address] LABOR ATORY DIRECTOR: ANGEL RAINES M.D. [place] NUMBER [id number] CAP ACCREDITATION N O. [id number] GC AND CHLAMYDIA, AMPLIFIED, [id number] 00:00:00 Test Item Value Reference Range Interpretation Comments GONORRHEA, NAAT (test code = 91941) NEGATIVE CHLAMYDIA, NAAT (test code = 88195) NEGATIVE GC AND CHLAMYDIA, AMPLIFIED, [id number] 00:00:00 Test Item Value Reference Range Interpretation Comments GONORRHEA, NAAT (test code = 30556) NEGATIVE CHLAMYDIA, NAAT (test code = 01210) NEGATIVE GC AND CHLAMYDIA, AMPLIFIED, [id number] 00:00:00 Test Item Value Reference Range Interpretation Comments GONORRHEA, NAAT (test code = 88471) NEGATIVE CHLAMYDIA, NAAT (test code = 60677) NEGATIVE CT/NG, NAAT, [id number] 08:23:05 Test Item Value Reference Range Interpretation Comments GONORRHEA, NAAT TEST NOT PERFORMED NEGATIVE Unable to perform (test code = testing, [place] 58[address]) not received.Charge s adjusted as applicable. CHLAMYDIA, NAAT TEST NOT PERFORMED NEGATIVE Unable to perform (test code = testing, [place] 5[address]) not received.Charge s adjusted as applicable. GC AND CHLAMYDIA, AMPLIFIED, [id number] 00:00:00 Test Item Value Reference Range Interpretation Comments GONORRHEA, NAAT (test code TEST NOT PERFORMED = 19259) CHLAMYDIA, NAAT (test code TEST NOT PERFORMED = 28935) GC AND CHLAMYDIA, AMPLIFIED, [id number] 00:00:00 Test Item Value Reference Range Interpretation Comments GONORRHEA, NAAT (test code TEST NOT PERFORMED = 91718) CHLAMYDIA, NAAT (test code TEST NOT PERFORMED = 79252) GC AND CHLAMYDIA, AMPLIFIED, [id number] 00:00:00 Test Item Value Reference Range Interpretation Comments GONORRHEA, NAAT (test code TEST NOT PERFORMED = 85154) CHLAMYDIA, NAAT (test code TEST NOT PERFORMED = 92525) CULTURE, [id number] 15:49:17SPECIMEN NUMBER: [id number] CULTURE, URINE SPECIMEN NUMBER: [id number] SPECIMEN COMMENT: URINE SOURCE:URINE REPORT STATUS: FINAL FINAL REPORT: 09/23/2021 50-100,000 CFU/ML MIXED UROGENITAL FLORACULTURE, [id number] 00:00:00 Test Item Value Reference Range Interpretation Comments CULTURE, URINE (test SPECIMEN NUMBER: code = 58729) [id number] CULTURE, [id number] 00:00:00 Test Item Value Reference Range Interpretation Comments CULTURE, URINE (test SPECIMEN NUMBER: code = 24483) [id number] CULTURE, [id number] 00:00:00 Test Item Value Reference Range Interpretation Comments CULTURE, URINE (test SPECIMEN NUMBER: code = 55582) [id number] VAGINAL PATHOGENS DNA [id number] 13:26:09 Test Item Value Reference Range Interpretation Comments YAAKOV SPECIES (test NEGATIVE NEGATIVE code = ) G. VAGINALIS (test POSITIVE NEGATIVE A code = 39976) T. VAGINALIS (test NEGATIVE NEGATIVE UNLESS O THERWISE code = 86075) INDICATED, ALL TESTING PERFORMED [facility] [address] [place] [address] 4 LABORATORY DIRE CTOR: ANGEL PERES M.D. CLIA NUMBER [id number] [place] [id number] HEPATITIS PANEL, [id number] 06:02:01 Test Item Value Reference Range Interpretation Comments HEPATITIS A IgM (test NON-REACTIVE NON-REACTIVE code = 04859) HEPATITIS B CORE IgM NON-REACTIVE NON-REACTIVE (test code = 4644) HEPATITIS B SURF AG NON-REACTIVE NON-REACTIVE (test code = 2739) HEPATITIS C ANTIBODY NON-REACTIVE NON-REACTIVE (test code = 4675) INTERPRETATION (NOTE) Hepatitis A HEPATITIS A: (test code sero logy shows no = 2552) evidence of acu te hepatitis A. INTERPRETATION (NOTE) Hepatitis B HEPATITIS B: (test code sero logy shows no = 39780) evidence of acu te hepatitis B and no indication of exposure to hepatitis B vir us in the previous jackie eight months. INTERPRETATION (NOTE) Hepatitis C HEPATITIS C: (test code sero logy shows no = 46661) evidence of exposure to hepatitisC viru s at this time. I t can take up to 12 months after exposure tothe hepatitis C vir us for antibodies to become detectab le in the blood in certain patient s. HIV 1/2 4TH GEN, RFLX [id number] 06:02:01 Test Item Value Reference Range Interpretation Comments HIV 1/2 4TH GEN, RFLX CONF (test NON-REACTIVE NON-REACTIVE code = 3514) [id number] 05:37:37 Test Item Value Reference Range Interpretation Comments RPR RESULT (test code = NON-REACTIVE NON-REACTIVE 3501) RPR TITER (test code = 3500) NOT INDIC. TITER NOT INDIC. ACUTE HEPATITIS [id number] 00:00:00 Test Item Value Reference Range Interpretation Comments HEPATITIS A IgM (test code = NON-REACTIVE 70253) HEPATITIS B CORE IgM (test code NON-REACTIVE = 4644) HEPATITIS B SURF AG (test code = NON-REACTIVE 2739) HEPATITIS C ANTIBODY (test code NON-REACTIVE = 4675) INTERPRETATION HEPATITIS A: (NOTE) (test code = 2552) INTERPRETATION HEPATITIS B: (NOTE) (test code = 47204) INTERPRETATION HEPATITIS C: (NOTE) (test code = 20725) ACUTE HEPATITIS [id number] 00:00:00 Test Item Value Reference Range Interpretation Comments HEPATITIS A IgM (test code = NON-REACTIVE 56850) HEPATITIS B CORE IgM (test code NON-REACTIVE = 4644) HEPATITIS B SURF AG (test code = NON-REACTIVE 2739) HEPATITIS C ANTIBODY (test code NON-REACTIVE = 4675) INTERPRETATION HEPATITIS A: (NOTE) (test code = 2552) INTERPRETATION HEPATITIS B: (NOTE) (test code = 21173) INTERPRETATION HEPATITIS C: (NOTE) (test code = 97186) HIV AB/AG COMBO RFLX [id number] 00:00:00 Test Item Value Reference Range Interpretation Comments HIV 1/2 4TH GEN, RFLX CONF (test NON-REACTIVE code = 3514) HIV AB/AG COMBO RFLX [id number] 00:00:00 Test Item Value Reference Range Interpretation Comments HIV 1/2 4TH GEN, RFLX CONF (test NON-REACTIVE code = 3514) [id number] 00:00:00 Test Item Value Reference Range Interpretation Comments RPR RESULT (test code = NON-REACTIVE 3501) RPR TITER (test code = 3500) NOT INDIC. TITER [id number] 00:00:00 Test Item Value Reference Range Interpretation Comments RPR RESULT (test code = NON-REACTIVE 3501) RPR TITER (test code = 3500) NOT INDIC. TITER [id number] 00:00:00 Test Item Value Reference Range Interpretation Comments RPR RESULT (test code = NON-REACTIVE 3501) RPR TITER (test code = 3500) NOT INDIC. TITER VAGINAL PATHOGENS DNA [id number] 00:00:00 Test Item Value Reference Range Interpretation Comments YAAKOV SPECIES (test code = ) NEGATIVE G. VAGINALIS (test code = 84056) POSITIVE T. VAGINALIS (test code = 70498) NEGATIVE VAGINAL PATHOGENS DNA [id number] 00:00:00 Test Item Value Reference Range Interpretation Comments YAAKOV SPECIES (test code = 62326) NEGATIVE G. VAGINALIS (test code = 56422) POSITIVE T. VAGINALIS (test code = 67489) NEGATIVE ACUTE HEPATITIS [id number] 00:00:00 Test Item Value Reference Range Interpretation Comments HEPATITIS A IgM (test code = NON-REACTIVE 89061) HEPATITIS B CORE IgM (test code NON-REACTIVE = 4644) HEPATITIS B SURF AG (test code = NON-REACTIVE 2739) HEPATITIS C ANTIBODY (test code NON-REACTIVE = 4675) INTERPRETATION HEPATITIS A: (NOTE) (test code = 2552) INTERPRETATION HEPATITIS B: (NOTE) (test code = 86742) INTERPRETATION HEPATITIS C: (NOTE) (test code = 37000) HIV AB/AG COMBO RFLX [id number] 00:00:00 Test Item Value Reference Range Interpretation Comments HIV 1/2 4TH GEN, RFLX CONF (test NON-REACTIVE code = 3514) [id number] 00:00:00 Test Item Value Reference Range Interpretation Comments RPR RESULT (test code = NON-REACTIVE 3501) RPR TITER (test code = 3500) NOT INDIC. TITER [id number] 00:00:00 Test Item Value Reference Range Interpretation Comments RPR RESULT (test code = NON-REACTIVE 3501) RPR TITER (test code = 3500) NOT INDIC. TITER VAGINAL PATHOGENS DNA [id number] 00:00:00 Test Item Value Reference Range Interpretation Comments YAAKOV SPECIES (test code = ) NEGATIVE G. VAGINALIS (test code = ) POSITIVE T. VAGINALIS (test code = ) NEGATIVE POCT [id number] 13:11:00 Test Item Value Reference Range Interpretation Comments POCT PREG (test code = 1605) negative On board controls acceptable with present C Line (test code = 3574) POCT PREG LOT # (test code = 3575) [id number] POCT PREG TEST DATE (test 08/13/2022 code = 3576) Lab Interpretation (test code = Normal 92339-5) [facility]. METABOLIC PANEL ([id number])[id number] 12:56:33 Test Item Value Reference Range Interpretation Comments NA (test code = 139 mmol/L 135-145 [id number]) K (test code = 3.9 mmol/L 3.5-5.0 6019509433) CL (test code = 105 mmol/L 98-108 3718646694) CO2 TOTAL (test code = 20 mmol/L 23-31 L 0493613671) AGAP (test code = 2-16 8736040917) BUN (test code = 22 mg/dL 7-23 2629823053) GLUCOSE (test code = 152 mg/dL 70-110 H 2397823010) CREATININE (test code = 0.58 mg/dL 0.50-1.04 8874439337) TOTAL BILI (test code = 1.1 mg/dL 0.1-1.6 4974756323) CALCIUM (test code = 9.2 mg/dL 8.6-10.6 6266794266) T PROTEIN (test code = 8.6 g/dL 6.3-8.2 H 4651089802) ALBUMIN (test code = 5.1 g/dL 3.5-5.0 H 8830722469) ALK PHOS (test code = 92 U/L 34-122 5253534679) ALTv (test code = 29 U/L 5-35 1742-6) AST(SGOT) (test code = 37 U/L 13-40 9157252536) eGFR (test code = mL/min/1.73m2 5351956977) REDD (test code = REDD) Association of [...] tests). Lab Interpretation Abnormal (test code = 67717-0) [facility] WITH [id number] 12:19:09 Test Item Value Reference Range Interpretation [...] RDW-SD (test code = 40.7 fL 39.0-49.9 38632-7) RDW-CV (test code = 13.4 % 12.0-15.5 788-0) PLT (test code = See_Comment [Automated 777-3) message] The sy stem which generated this result transmitted reference range : 166 - 358 10*3/ ?L. The reference r kay was not used to interpret this result as normal/abnormal . MPV (test code = 10.4 fL 9.5-12.9 58928-7) NRBC/100 WBC (test See_Comment [Automat ed code = 7452011882) message] The system which generated this result transmitted reference range : 0.0 - 10.0 /100 WBCs. The refer ence range was not u sed to interpret th is result as normal/abnormal . NRBC x10^3 (test code <0.01 See_Comment [Auto mated = 5043908255) message] The s ystem which generated this result transmitted reference range : 10*3/?L. The reference range was not used to interpret this result as normal/abnormal . GRAN MAT (NEUT) % 88.2 % (test code = 770-8) IMM GRAN % (test code 0.30 % = 9082442107) LYMPH % (test code = 7.1 % 736-9) MONO % (test code = 4.1 % 5905-5) EOS % (test code = 0.2 % 713-8) BASO % (test code = 0.1 % 706-2) GRAN MAT x10^3(ANC) 9.30 10*3/uL 1.88-7.09 H (test code = 4265285156) IMM GRAN x10^3 (test 0.03 10*3/uL 0.00-0.06 code = 9990051829) LYMPH x10^3 (test code 0.75 10*3/uL 1.32-3.29 L = 731-0) MONO x10^3 (test code 0.43 10*3/uL 0.33-0.92 = 742-7) EOS x10^3 (test code = <0.03 0.03-0.39 L 711-2) BASO x10^3 (test code <0.03 0.01-0.07 = 704-7) Lab Interpretation Abnormal (test code = 41941-8) [facility], [id number] 06:45:39 Test Item Value Reference Range Interpretation Comments HCG, QUALITATIVE (test NEGATIVE NEGATIVE UNLE SS OTHERWISE code = 2507) INDICATED, ALL TESTING PERFORMED [facility] [address] [place] [address] 4 LABORATORY DIRE CTOR: ANGEL PERES M.D. CLIA NUMBER [id number] [place] [id number] CBC W/AUTO DIFF WITH [id number] 05:03:48 Test Item Value Reference Range Interpretation [...] RBCS 0.00 K/UL 0.00-0.11 (test code = 86730) CBC W/AUTO [id number] 00:00:00 Test Item Value Reference Range Interpretation Comments WBC (test code = 1001) 8.8 K/UL RBC (test code = 1002) 4.36 M/UL HEMOGLOBIN (test code = 1003) 12.1 G/DL HEMATOCRIT (test code = 1004) 35.6 % MCV (test code = 1005) 81.7 fL MCH (test code = 1006) 27.8 PG MCHC (test code = 1007) 34.0 G/DL RDW (test code = 1038) 13.5 % NEUTROPHILS (test code = 1008) 59.1 % LYMPHOCYTES (test code = 1010) 29.7 % MONOCYTES (test code = 1011) 9.1 % EOSINOPHILS (test code = 1012) 1.5 % BASOPHILS (test code = 1013) 0.1 % IMMATURE GRANYLOCYTES (test 0.5 % code = 1036) NUCLEATED RBCS (test code = 0.0 /100WBC'S 1065) PLATELET COUNT (test code = 365 K/UL 1015) ABSOLUTE NEUTROPHILS (test code 5.20 K/UL = 1066) ABSOLUTE LYMPHOCYTES (test code 2.61 K/UL = 1067) ABSOLUTE MONOCYTES (test code = 0.80 K/UL 1068) ABSOLUTE EOSINOPHILS (test code 0.13 K/UL = 1040) ABSOLUTE BASOPHILS (test code = 0.01 K/UL 1069) ABS IMMATURE GRANULOCYTES (test 0.04 K/UL code = 1020) ABS NUCLEATED RBCS (test code = 0.00 K/UL 67250) CBC W/AUTO [id number] 00:00:00 Test Item Value Reference Range Interpretation Comments WBC (test code = 1001) 8.8 K/UL RBC (test code = 1002) 4.36 M/UL HEMOGLOBIN (test code = 1003) 12.1 G/DL HEMATOCRIT (test code = 1004) 35.6 % MCV (test code = 1005) 81.7 fL MCH (test code = 1006) 27.8 PG MCHC (test code = 1007) 34.0 G/DL RDW (test code = 1038) 13.5 % NEUTROPHILS (test code = 1008) 59.1 % LYMPHOCYTES (test code = 1010) 29.7 % MONOCYTES (test code = 1011) 9.1 % EOSINOPHILS (test code = 1012) 1.5 % BASOPHILS (test code = 1013) 0.1 % IMMATURE GRANYLOCYTES (test 0.5 % code = 1036) NUCLEATED RBCS (test code = 0.0 /100WBC'S 1065) PLATELET COUNT (test code = 365 K/UL 1015) ABSOLUTE NEUTROPHILS (test code 5.20 K/UL = 1066) ABSOLUTE LYMPHOCYTES (test code 2.61 K/UL = 1067) ABSOLUTE MONOCYTES (test code = 0.80 K/UL 1068) ABSOLUTE EOSINOPHILS (test code 0.13 K/UL = 1040) ABSOLUTE BASOPHILS (test code = 0.01 K/UL 1069) ABS IMMATURE GRANULOCYTES (test 0.04 K/UL code = 1020) ABS NUCLEATED RBCS (test code = 0.00 K/UL 40910) CBC W/AUTO [id number] 00:00:00 Test Item Value Reference Range Interpretation Comments WBC (test code = 1001) 8.8 K/UL RBC (test code = 1002) 4.36 M/UL HEMOGLOBIN (test code = 1003) 12.1 G/DL HEMATOCRIT (test code = 1004) 35.6 % MCV (test code = 1005) 81.7 fL MCH (test code = 1006) 27.8 PG MCHC (test code = 1007) 34.0 G/DL RDW (test code = 1038) 13.5 % NEUTROPHILS (test code = 1008) 59.1 % LYMPHOCYTES (test code = 1010) 29.7 % MONOCYTES (test code = 1011) 9.1 % EOSINOPHILS (test code = 1012) 1.5 % BASOPHILS (test code = 1013) 0.1 % IMMATURE GRANYLOCYTES (test 0.5 % code = 1036) NUCLEATED RBCS (test code = 0.0 /100WBC'S 1065) PLATELET COUNT (test code = 365 K/UL 1015) ABSOLUTE NEUTROPHILS (test code 5.20 K/UL = 1066) ABSOLUTE LYMPHOCYTES (test code 2.61 K/UL = 1067) ABSOLUTE MONOCYTES (test code = 0.80 K/UL 1068) ABSOLUTE EOSINOPHILS (test code 0.13 K/UL = 1040) ABSOLUTE BASOPHILS (test code = 0.01 K/UL 1069) ABS IMMATURE GRANULOCYTES (test 0.04 K/UL code = 1020) ABS NUCLEATED RBCS (test code = 0.00 K/UL 24565) TEST, [id number] 00:00:00 Test Item Value Reference Range Interpretation Comments HCG, QUALITATIVE (test code = 2507) NEGATIVE TEST, [id number] 00:00:00 Test Item Value Reference Range Interpretation Comments HCG, QUALITATIVE (test code = 2507) NEGATIVE TEST, [id number] 00:00:00 Test Item Value Reference Range Interpretation Comments HCG, QUALITATIVE (test code = 2507) NEGATIVE CBC W/AUTO [id number] 00:00:00 Test Item Value Reference Range Interpretation Comments WBC (test code = 1001) 8.8 K/UL RBC (test code = 1002) 4.36 M/UL HEMOGLOBIN (test code = 1003) 12.1 G/DL HEMATOCRIT (test code = 1004) 35.6 % MCV (test code = 1005) 81.7 fL MCH (test code = 1006) 27.8 PG MCHC (test code = 1007) 34.0 G/DL RDW (test code = 1038) 13.5 % NEUTROPHILS (test code = 1008) 59.1 % LYMPHOCYTES (test code = 1010) 29.7 % MONOCYTES (test code = 1011) 9.1 % EOSINOPHILS (test code = 1012) 1.5 % BASOPHILS (test code = 1013) 0.1 % IMMATURE GRANYLOCYTES (test 0.5 % code = 1036) NUCLEATED RBCS (test code = 0.0 /100WBC'S 1065) PLATELET COUNT (test code = 365 K/UL 1015) ABSOLUTE NEUTROPHILS (test code 5.20 K/UL = 1066) ABSOLUTE LYMPHOCYTES (test code 2.61 K/UL = 1067) ABSOLUTE MONOCYTES (test code = 0.80 K/UL 1068) ABSOLUTE EOSINOPHILS (test code 0.13 K/UL = 1040) ABSOLUTE BASOPHILS (test code = 0.01 K/UL 1069) ABS IMMATURE GRANULOCYTES (test 0.04 K/UL code = 1020) ABS NUCLEATED RBCS (test code = 0.00 K/UL 29459) CBC W/AUTO [id number] 00:00:00 Test Item Value Reference Range Interpretation Comments WBC (test code = 1001) 8.8 K/UL RBC (test code = 1002) 4.36 M/UL HEMOGLOBIN (test code = 1003) 12.1 G/DL HEMATOCRIT (test code = 1004) 35.6 % MCV (test code = 1005) 81.7 fL MCH (test code = 1006) 27.8 PG MCHC (test code = 1007) 34.0 G/DL RDW (test code = 1038) 13.5 % NEUTROPHILS (test code = 1008) 59.1 % LYMPHOCYTES (test code = 1010) 29.7 % MONOCYTES (test code = 1011) 9.1 % EOSINOPHILS (test code = 1012) 1.5 % BASOPHILS (test code = 1013) 0.1 % IMMATURE GRANYLOCYTES (test 0.5 % code = 1036) NUCLEATED RBCS (test code = 0.0 /100WBC'S 1065) PLATELET COUNT (test code = 365 K/UL 1015) ABSOLUTE NEUTROPHILS (test code 5.20 K/UL = 1066) ABSOLUTE LYMPHOCYTES (test code 2.61 K/UL = 1067) ABSOLUTE MONOCYTES (test code = 0.80 K/UL 1068) ABSOLUTE EOSINOPHILS (test code 0.13 K/UL = 1040) ABSOLUTE BASOPHILS (test code = 0.01 K/UL 1069) ABS IMMATURE GRANULOCYTES (test 0.04 K/UL code = 1020) ABS NUCLEATED RBCS (test code = 0.00 K/UL 08918) TEST, [id number] 00:00:00 Test Item Value Reference Range Interpretation Comments HCG, QUALITATIVE (test code = 2507) NEGATIVE TEST, [id number] 00:00:00 Test Item Value Reference Range Interpretation Comments HCG, QUALITATIVE (test code = 2507) NEGATIVE VITAMIN [id number] 00:00:00 Test Item Value Reference Range Interpretation Comments VITAMIN B-12 (test code = 2840) 1039 PG/ML VITAMIN [id number] 00:00:00 Test Item Value Reference Range Interpretation Comments VITAMIN B-12 (test code = 2840) 1039 PG/ML VITAMIN [id number] 00:00:00 Test Item Value Reference Range Interpretation Comments VITAMIN B-12 (test code = 2840) 1039 PG/ML VITAMIN D, 25 [id number] 00:00:00 Test Item Value Reference Range Interpretation Comments VITAMIN D, 25 OH (test code = 4958) 55 NG/ML VITAMIN D, 25 [id number] 00:00:00 Test Item Value Reference Range Interpretation Comments VITAMIN D, 25 OH (test code = 4958) 55 NG/ML VITAMIN [id number] 00:00:00 Test Item Value Reference Range Interpretation Comments VITAMIN B-12 (test code = 2840) 1039 PG/ML VITAMIN [id number] 00:00:00 Test Item Value Reference Range Interpretation Comments VITAMIN B-12 (test code = 2840) 1039 PG/ML VITAMIN D, 25 [id number] 00:00:00 Test Item Value Reference Range Interpretation Comments VITAMIN D, 25 OH (test code = 4958) 55 NG/ML CBC W/AUTO [id number] 00:00:00 Test Item Value Reference Range Interpretation Comments WBC (test code = 1001) 8.6 K/UL RBC (test code = 1002) 4.27 M/UL HEMOGLOBIN (test code = 1003) 11.9 G/DL HEMATOCRIT (test code = 1004) 35.6 % MCV (test code = 1005) 83.4 fL MCH (test code = 1006) 27.9 PG MCHC (test code = 1007) 33.4 G/DL RDW (test code = 1038) 13.1 % NEUTROPHILS (test code = 1008) 59.7 % LYMPHOCYTES (test code = 1010) 31.3 % MONOCYTES (test code = 1011) 7.2 % EOSINOPHILS (test code = 1012) 1.4 % BASOPHILS (test code = 1013) 0.2 % IMMATURE GRANULOCYTES (test 0.2 % code = 1036) NUCLEATED RBCS (test code = 0.0 /100WBC'S 1065) PLATELET COUNT (test code = 335 K/UL 1015) ABSOLUTE NEUTROPHILS (test code 5.16 K/UL = 1066) ABSOLUTE LYMPHOCYTES (test code 2.70 K/UL = 1067) ABSOLUTE MONOCYTES (test code = 0.62 K/UL 1068) ABSOLUTE EOSINOPHILS (test code 0.12 K/UL = 1040) ABSOLUTE BASOPHILS (test code = 0.02 K/UL 1069) ABS IMMATURE GRANULOCYTES (test 0.02 K/UL code = 1020) ABS NUCLEATED RBCS (test code = 0.00 K/UL 97011) CBC W/AUTO [id number] 00:00:00 Test Item Value Reference Range Interpretation Comments WBC (test code = 1001) 8.6 K/UL RBC (test code = 1002) 4.27 M/UL HEMOGLOBIN (test code = 1003) 11.9 G/DL HEMATOCRIT (test code = 1004) 35.6 % MCV (test code = 1005) 83.4 fL MCH (test code = 1006) 27.9 PG MCHC (test code = 1007) 33.4 G/DL RDW (test code = 1038) 13.1 % NEUTROPHILS (test code = 1008) 59.7 % LYMPHOCYTES (test code = 1010) 31.3 % MONOCYTES (test code = 1011) 7.2 % EOSINOPHILS (test code = 1012) 1.4 % BASOPHILS (test code = 1013) 0.2 % IMMATURE GRANULOCYTES (test 0.2 % code = 1036) NUCLEATED RBCS (test code = 0.0 /100WBC'S 1065) PLATELET COUNT (test code = 335 K/UL 1015) ABSOLUTE NEUTROPHILS (test code 5.16 K/UL = 1066) ABSOLUTE LYMPHOCYTES (test code 2.70 K/UL = 1067) ABSOLUTE MONOCYTES (test code = 0.62 K/UL 1068) ABSOLUTE EOSINOPHILS (test code 0.12 K/UL = 1040) ABSOLUTE BASOPHILS (test code = 0.02 K/UL 1069) ABS IMMATURE GRANULOCYTES (test 0.02 K/UL code = 1020) ABS NUCLEATED RBCS (test code = 0.00 K/UL 28028) CBC W/AUTO [id number] 00:00:00 Test Item Value Reference Range Interpretation Comments WBC (test code = 1001) 8.6 K/UL RBC (test code = 1002) 4.27 M/UL HEMOGLOBIN (test code = 1003) 11.9 G/DL HEMATOCRIT (test code = 1004) 35.6 % MCV (test code = 1005) 83.4 fL MCH (test code = 1006) 27.9 PG MCHC (test code = 1007) 33.4 G/DL RDW (test code = 1038) 13.1 % NEUTROPHILS (test code = 1008) 59.7 % LYMPHOCYTES (test code = 1010) 31.3 % MONOCYTES (test code = 1011) 7.2 % EOSINOPHILS (test code = 1012) 1.4 % BASOPHILS (test code = 1013) 0.2 % IMMATURE GRANULOCYTES (test 0.2 % code = 1036) NUCLEATED RBCS (test code = 0.0 /100WBC'S 1065) PLATELET COUNT (test code = 335 K/UL 1015) ABSOLUTE NEUTROPHILS (test code 5.16 K/UL = 1066) ABSOLUTE LYMPHOCYTES (test code 2.70 K/UL = 1067) ABSOLUTE MONOCYTES (test code = 0.62 K/UL 1068) ABSOLUTE EOSINOPHILS (test code 0.12 K/UL = 1040) ABSOLUTE BASOPHILS (test code = 0.02 K/UL 1069) ABS IMMATURE GRANULOCYTES (test 0.02 K/UL code = 1020) ABS NUCLEATED RBCS (test code = 0.00 K/UL 03306) HEMOGLOBIN [id number] 00:00:00 Test Item Value Reference Range Interpretation Comments HEMOGLOBIN A1c (test code = 34078) 6.0 % HEMOGLOBIN [id number] 00:00:00 Test Item Value Reference Range Interpretation Comments HEMOGLOBIN A1c (test code = 20099) 6.0 % HEMOGLOBIN [id number] 00:00:00 Test Item Value Reference Range Interpretation Comments HEMOGLOBIN A1c (test code = 81953) 6.0 % COMPREHENSIVE METABOLIC [id number] 00:00:00 Test Item Value Reference Range Interpretation Comments GLUCOSE (test code = 2217) 103 MG/DL BUN (test code = 2208) 18 MG/DL CREATININE (test code = 2214) 0.57 MG/DL eGFR AMER. (test code 138 ML/MIN/1.73 = 59363) eGFR NON- AMER. (test 119 ML/MIN/1.73 code = 87223) CALC BUN/CREAT (test code = 32 RATIO 2235) SODIUM (test code = 2231) 141 MEQ/L POTASSIUM (test code = 2228) 3.6 MEQ/L CHLORIDE (test code = 2215) 103 MEQ/L CARBON DIOXIDE (test code = 26 MEQ/L 2205) CALCIUM (test code = 2209) 9.5 MG/DL PROTEIN, TOTAL (test code = 7.1 G/DL 2228) ALBUMIN (test code = 2201) 4.4 G/DL CALC GLOBULIN (test code = 2.7 G/DL 0) CALC A/G RATIO (test code = 1.6 RATIO 2233) BILIRUBIN, TOTAL (test code = 0.3 MG/DL 2206) ALKALINE PHOSPHATASE (test 94 U/L code = 2204) AST (test code = 2218) 19 U/L ALT (test code = 2219) 20 U/L COMPREHENSIVE METABOLIC [id number] 00:00:00 Test Item Value Reference Range Interpretation Comments GLUCOSE (test code = 2217) 103 MG/DL BUN (test code = 2208) 18 MG/DL CREATININE (test code = 2214) 0.57 MG/DL eGFR AMER. (test code 138 ML/MIN/1.73 = 60072) eGFR NON- AMER. (test 119 ML/MIN/1.73 code = 37809) CALC BUN/CREAT (test code = 32 RATIO 2234) SODIUM (test code = 2231) 141 MEQ/L POTASSIUM (test code = 2228) 3.6 MEQ/L CHLORIDE (test code = 2215) 103 MEQ/L CARBON DIOXIDE (test code = 26 MEQ/L 2205) CALCIUM (test code = 2209) 9.5 MG/DL PROTEIN, TOTAL (test code = 7.1 G/DL 2228) ALBUMIN (test code = 220) 4.4 G/DL CALC GLOBULIN (test code = 2.7 G/DL 2239) CALC A/G RATIO (test code = 1.6 RATIO 2233) BILIRUBIN, TOTAL (test code = 0.3 MG/DL 2206) ALKALINE PHOSPHATASE (test 94 U/L code = 2203) AST (test code = 2218) 19 U/L ALT (test code = 2219) 20 U/L VITAMIN D, 25 [id number] 00:00:00 Test Item Value Reference Range Interpretation Comments VITAMIN D, 25 OH (test code = 4958) 20 NG/ML VITAMIN D, 25 [id number] 00:00:00 Test Item Value Reference Range Interpretation Comments VITAMIN D, 25 OH (test code = 4958) 20 NG/ML VITAMIN B 12 AND FOLIC [id number] 00:00:00 Test Item Value Reference Range Interpretation Comments VITAMIN B-12 (test code = 2840) 1525 PG/ML FOLIC ACID (test code = 2695) 7.6 UG/L VITAMIN B 12 AND FOLIC [id number] 00:00:00 Test Item Value Reference Range Interpretation Comments VITAMIN B-12 (test code = 2840) 1525 PG/ML FOLIC ACID (test code = 2695) 7.6 UG/L CBC W/AUTO [id number] 00:00:00 Test Item Value Reference Range Interpretation Comments WBC (test code = 1001) 8.6 K/UL RBC (test code = 1002) 4.27 M/UL HEMOGLOBIN (test code = 1003) 11.9 G/DL HEMATOCRIT (test code = 1004) 35.6 % MCV (test code = 1005) 83.4 fL MCH (test code = 1006) 27.9 PG MCHC (test code = 1007) 33.4 G/DL RDW (test code = 1038) 13.1 % NEUTROPHILS (test code = 1008) 59.7 % LYMPHOCYTES (test code = 1010) 31.3 % MONOCYTES (test code = 1011) 7.2 % EOSINOPHILS (test code = 1012) 1.4 % BASOPHILS (test code = 1013) 0.2 % IMMATURE GRANULOCYTES (test 0.2 % code = 1036) NUCLEATED RBCS (test code = 0.0 /100WBC'S 1065) PLATELET COUNT (test code = 335 K/UL 1015) ABSOLUTE NEUTROPHILS (test code 5.16 K/UL = 1066) ABSOLUTE LYMPHOCYTES (test code 2.70 K/UL = 1067) ABSOLUTE MONOCYTES (test code = 0.62 K/UL 1068) ABSOLUTE EOSINOPHILS (test code 0.12 K/UL = 1040) ABSOLUTE BASOPHILS (test code = 0.02 K/UL 1069) ABS IMMATURE GRANULOCYTES (test 0.02 K/UL code = 1020) ABS NUCLEATED RBCS (test code = 0.00 K/UL 66357) CBC W/AUTO [id number] 00:00:00 Test Item Value Reference Range Interpretation Comments WBC (test code = 1001) 8.6 K/UL RBC (test code = 1002) 4.27 M/UL HEMOGLOBIN (test code = 1003) 11.9 G/DL HEMATOCRIT (test code = 1004) 35.6 % MCV (test code = 1005) 83.4 fL MCH (test code = 1006) 27.9 PG MCHC (test code = 1007) 33.4 G/DL RDW (test code = 1038) 13.1 % NEUTROPHILS (test code = 1008) 59.7 % LYMPHOCYTES (test code = 1010) 31.3 % MONOCYTES (test code = 1011) 7.2 % EOSINOPHILS (test code = 1012) 1.4 % BASOPHILS (test code = 1013) 0.2 % IMMATURE GRANULOCYTES (test 0.2 % code = 1036) NUCLEATED RBCS (test code = 0.0 /100WBC'S 1065) PLATELET COUNT (test code = 335 K/UL 1015) ABSOLUTE NEUTROPHILS (test code 5.16 K/UL = 1066) ABSOLUTE LYMPHOCYTES (test code 2.70 K/UL = 1067) ABSOLUTE MONOCYTES (test code = 0.62 K/UL 1068) ABSOLUTE EOSINOPHILS (test code 0.12 K/UL = 1040) ABSOLUTE BASOPHILS (test code = 0.02 K/UL 1069) ABS IMMATURE GRANULOCYTES (test 0.02 K/UL code = 1020) ABS NUCLEATED RBCS (test code = 0.00 K/UL 72432) HEMOGLOBIN [id number] 00:00:00 Test Item Value Reference Range Interpretation Comments HEMOGLOBIN A1c (test code = 26809) 6.0 % HEMOGLOBIN [id number] 00:00:00 Test Item Value Reference Range Interpretation Comments HEMOGLOBIN A1c (test code = 37361) 6.0 % COMPREHENSIVE METABOLIC [id number] 00:00:00 Test Item Value Reference Range Interpretation Comments GLUCOSE (test code = 2217) 103 MG/DL BUN (test code = 2208) 18 MG/DL CREATININE (test code = 2214) 0.57 MG/DL eGFR AMER. (test code 138 ML/MIN/1.73 = 68440) eGFR NON- AMER. (test 119 ML/MIN/1.73 code = 52015) CALC BUN/CREAT (test code = 32 RATIO 2235) SODIUM (test code = 2231) 141 MEQ/L POTASSIUM (test code = 2228) 3.6 MEQ/L CHLORIDE (test code = 2215) 103 MEQ/L CARBON DIOXIDE (test code = 26 MEQ/L 2205) CALCIUM (test code = 2209) 9.5 MG/DL PROTEIN, TOTAL (test code = 7.1 G/DL 2228) ALBUMIN (test code = 2201) 4.4 G/DL CALC GLOBULIN (test code = 2.7 G/DL 2240) CALC A/G RATIO (test code = 1.6 RATIO 2234) BILIRUBIN, TOTAL (test code = 0.3 MG/DL 2206) ALKALINE PHOSPHATASE (test 94 U/L code = 2204) AST (test code = 2218) 19 U/L ALT (test code = 2219) 20 U/L VITAMIN D, 25 [id number] 00:00:00 Test Item Value Reference Range Interpretation Comments VITAMIN D, 25 OH (test code = 4958) 20 NG/ML VITAMIN B 12 AND FOLIC [id number] 00:00:00 Test Item Value Reference Range Interpretation Comments VITAMIN B-12 (test code = 8750) 1525 PG/ML FOLIC ACID (test code = 2695) 7.6 UG/L FREE T4 (THYROXINE)2021-03-28 00:00:00 Test Item Value Reference Range Interpretation Comments FREE T4 (THYROXINE) (test code = 1.21 NG/DL 2823) FREE T4 (THYROXINE)2021-03-28 00:00:00 Test Item Value Reference Range Interpretation Comments FREE T4 (THYROXINE) (test code = 1.21 NG/DL 2823) FREE T4 (THYROXINE)2021-03-28 00:00:00 Test Item Value Reference Range Interpretation Comments FREE T4 (THYROXINE) (test code = 1.21 NG/DL 2823) FREE T4 (THYROXINE)2021-03-28 00:00:00 Test Item Value Reference Range Interpretation Comments FREE T4 (THYROXINE) (test code = 1.21 NG/DL 2823) FREE T4 (THYROXINE)2021-03-28 00:00:00 Test Item Value Reference Range Interpretation Comments FREE T4 (THYROXINE) (test code = 1.21 NG/DL 2823) [id number] 00:00:00 Test Item Value Reference Range Interpretation Comments TSH, THIRD GENERATION (test code 0.380 UIU/ML = 2821) [id number] 00:00:00 Test Item Value Reference Range Interpretation Comments TSH, THIRD GENERATION (test code 0.380 UIU/ML = 2821) [id number] 00:00:00 Test Item Value Reference Range Interpretation Comments TSH, THIRD GENERATION (test code 0.380 UIU/ML = 2821) FSH + LH [id number] 00:00:00 Test Item Value Reference Range Interpretation Comments FOLLICLE STIM HORMONE (test code = 46.2 IU/L 2700) LUTEINIZING HORMONE (test code = 35.7 IU/L 2776) FSH + LH [id number] 00:00:00 Test Item Value Reference Range Interpretation Comments FOLLICLE STIM HORMONE (test code = 46.2 IU/L 2700) LUTEINIZING HORMONE (test code = 35.7 IU/L 2776) [id number] 00:00:00 Test Item Value Reference Range Interpretation Comments ESTRADIOL (test code = 2505) 18.3 PG/ML [id number] 00:00:00 Test Item Value Reference Range Interpretation Comments ESTRADIOL (test code = 2505) 18.3 PG/ML [id number] 00:00:00 Test Item Value Reference Range Interpretation Comments ESTRADIOL (test code = 2505) 18.3 PG/ML [id number] 00:00:00 Test Item Value Reference Range Interpretation Comments PROLACTIN (test code = 2800) 13.1 NG/ML [id number] 00:00:00 Test Item Value Reference Range Interpretation Comments PROLACTIN (test code = 2800) 13.1 NG/ML [id number] 00:00:00 Test Item Value Reference Range Interpretation Comments TSH, THIRD GENERATION (test code 0.380 UIU/ML = 2821) [id number] 00:00:00 Test Item Value Reference Range Interpretation Comments TSH, THIRD GENERATION (test code 0.380 UIU/ML = 2821) FSH + LH [id number] 00:00:00 Test Item Value Reference Range Interpretation Comments FOLLICLE STIM HORMONE (test code = 46.2 IU/L 2700) LUTEINIZING HORMONE (test code = 35.7 IU/L 2776) [id number] 00:00:00 Test Item Value Reference Range Interpretation Comments ESTRADIOL (test code = 2505) 18.3 PG/ML [id number] 00:00:00 Test Item Value Reference Range Interpretation Comments ESTRADIOL (test code = 2505) 18.3 PG/ML [id number] 00:00:00 Test Item Value Reference Range Interpretation Comments PROLACTIN (test code = 2800) 13.1 NG/ML POCT [id number] 03:16:00 Test Item Value Reference Range Interpretation Comments POCT PREG (test code = 1605) Negative On board controls acceptable with Present C Line (test code = 3574) POCT PREG LOT # (test code = HCG [id number]) POCT PREG TEST DATE (test 06/15/2022 code = 3576) Lab Interpretation (test code = Normal 31212-1) [facility] 17[facility]:54 Test Item Value Reference Range Interpretation Comments APPEARANCE (test code = Hazy Clear A 5426750723) COLOR (test code = Yellow Yellow 3767697502) PH (test code = 4.8-8.0 9538025264) SP GRAVITY (test code = 1.003-1.030 2736622184) GLU U QUAL (test code = Normal Normal 4008319374) BLOOD (test code = 1+ Negative A 3406568391) KETONES (test code = Negative Negative 4777047907) PROTEIN (test code = Negative Negative 2887-8) UROBILIN (test code = Normal Normal 3538015084) BILIRUBIN (test code = Negative Negative 7165615209) NITRITE (test code = Negative Negative 7456031550) LEUK LUIZ (test code = Negative Negative 0117401474) RBC/HPF (test code = See_Comment H [Autom ated message] 5129793451) The system [employer] generated this result transmitted ref erence range: 0 - 3 HP F. The reference range was not used to int erpret this result as normal/abnormal . WBC/HPF (test code = See_Comment [Autom ated message] 3050882986) The system [employer] generated this result transmitted ref erence range: 0 - 5 HP F. The reference range was not used to int erpret this result as normal/abnormal . BACTERIA (test code = Few Negative A 8917620352) SQ EPITH (test code = HPF 6767048101) Lab Interpretation (test Abnormal code = 87543-3) [facility] WITH [id number] 17:27:22 Test Item Value Reference Range Interpretation Comments WBC (test code = See_Comment [Automated message] 6690-2) The system [employer] generated this result transmitted ref erence range: 4.30 - 1 1.10 10*3/?L. The re ference range was not u sed to interpret this result as normal/abnor mal. RBC (test code = See_Comment [Automated message] 069-8) The system [employer] generated this result transmitted ref erence range: [...] RDW-SD (test code 40.7 fL 39.0-49.9 = 86641-4) RDW-CV (test code 13.1 % 12.0-15.5 = 788-0) PLT (test code = See_Comment [Automated message] 777-3) The system whic h generated this result transmitted ref erence range: 166 - 35 8 10*3/?L. The re ference range was not u sed to interpret this result as normal/abnor mal. MPV (test code = 10.3 fL 9.5-12.9 38551-2) NRBC/100 WBC (test See_Comment [Automat ed message] code = 6098878771) The syste m which generated this result transmitted ref erence range: 0.0 - 10 .0 /100 WBCs. The refer ence range was not u sed to interpret this result as normal/abnor mal. NRBC x10^3 (test <0.01 See_Comment [Automated message] code = 6150517287) The syste m which generated this result transmitted ref erence range: 10*3/?L. The reference range was not used to interpr et this result as normal/abnormal . GRAN MAT (NEUT) % 58.2 % (test code = 770-8) IMM GRAN % (test 0.50 % code = 9162147125) LYMPH % (test code 29.0 % = 736-9) MONO % (test code 10.0 % = 5905-5) EOS % (test code = 2.0 % 713-8) BASO % (test code 0.3 % = 706-2) GRAN MAT 4.65 10*3/uL 1.88-7.09 x10^3(ANC) (test code = 7164160363) IMM GRAN x10^3 0.04 10*3/uL 0.00-0.06 (test code = 6397491034) LYMPH x10^3 (test 2.32 10*3/uL 1.32-3.29 code = 731-0) MONO x10^3 (test 0.80 10*3/uL 0.33-0.92 code = 742-7) EOS x10^3 (test 0.16 10*3/uL 0.03-0.39 code = 711-2) BASO x10^3 (test <0.03 0.01-0.07 code = 704-7) [facility] METABOLIC PANEL (NA, K, CL, CO2, GLUCOSE, BUN, CREATININE, CA)2021-01-08 17:13:17 Test Item Value Reference Range Interpretation Comments NA (test code = 139 mmol/L 135-145 7311591174) K (test code = 3.9 mmol/L 3.5-5.0 1885540022) CL (test code = 106 mmol/L 98-108 2963150676) CO2 TOTAL (test code 25 mmol/L 23-31 = 7041844061) AGAP (test code = 2-16 6198975894) BUN (test code = 21 mg/dL 7-23 4573656993) GLUCOSE (test code = 99 mg/dL 70-110 7014545388) CREATININE (test code 0.59 mg/dL 0.50-1.04 = 6817705410) CALCIUM (test code = 8.9 mg/dL 8.6-10.6 6268626427) eGFR (test code = mL/min/1.73m2 4563105324) REDD (test code = REDD) Association of [...] urine or abnormalities in imaging tests). [facility] (47443[facility] (ALB,T.PRO,BILI T,BU/BC,ALT,AST,ALK PHOS)2021-01-08 17:13:17 Test Item Value Reference Range Interpretation Comments TOTAL BILI (test code = 3155719361) 0.4 mg/dL 0.1-1.1 BILI UNCON (test code = 2730593533) 0.3 mg/dL 0.1-1.1 BILI CONJ (test code = 6443098561) 0.0 mg/dL 0.0-0.3 T PROTEIN (test code = 2531751286) 8.4 g/dL 6.3-8.2 H ALBUMIN (test code = 5461606293) 4.4 g/dL 3.5-5.0 ALK PHOS (test code = 3534894548) 91 U/L 34-122 ALTv (test code = 1742-6) 25 U/L 5-35 AST(SGOT) (test code = 2952837098) 35 U/L 13-40 Lab Interpretation (test code = Abnormal 03220-3) [facility]IP[facility]2021[facility] 17:13:17 Test Item Value Reference Range Interpretation Comments LIPASE (test code = 3456604863) 161 U/L 0-220 Lab Interpretation (test code = Normal 66130-9) [facility]PO[facility] [id number] 16:54:00 Test Item Value Reference Range Interpretation Comments POCT PREG (test code = 1605) negative On board controls acceptable with present C Line (test code = 3574) POCT PREG LOT # (test code = 3575) [id number] POCT PREG TEST DATE (test code = 3576) Lab Interpretation (test code = Normal 06081-3) [facility] [id number] 07:46:31 Test Item Value Reference Range Interpretation Comments Streptococcus pyogenes (group A) Negative Negative antigen (test code = 04740-4) Lab Interpretation (test code = Normal 58556-5) [facility]COVID[facility] (ID NOW RAPID TESTING)2021-01-06 07:02:23 Test Item Value Reference Range Interpretation Comments SARS-CoV-2 Rapid ID NOW Not Detected Not Detected (test code = 59723-7) REDD (test code = REDD) ID NOW COVID-19 Assay is an isothermal nucleic acid amplification test intended for the qualitative detection of nucleic acid from SARS-CoV-2 viral RNA in nasopharyngeal (LIBRARY TECHNOLOGY INSTRUCTOR) specimens. It is used under Emergency Use [...] indicated. Lab Interpretation Normal (test code = 33337-6) [facility]2021-[facility] 06:59:50 Test Item Value Reference Range Interpretation Comments APPEARANCE (test code = Cloudy Clear A 6680447003) COLOR (test code = Yellow Yellow 3009115442) PH (test code = 4.8-8.0 6621666251) SP GRAVITY (test code = 1.003-1.030 5776825216) GLU U QUAL (test code = Normal Normal 1097664729) BLOOD (test code = 1+ Negative A 0961233720) KETONES (test code = Negative Negative 8224992303) PROTEIN (test code = Negative Negative 2887-8) UROBILIN (test code = Normal Normal 7158894413) BILIRUBIN (test code = Negative Negative 8274229958) NITRITE (test code = Negative Negative 0435622712) LEUK LUIZ (test code = Negative Negative 4812627822) RBC/HPF (test code = See_Comment H [Autom ated message] 3333296958) The system [employer] generated this result transmitted ref erence range: 0 - 3 HP F. The reference range was not used to int erpret this result as normal/abnormal . WBC/HPF (test code = See_Comment [Autom ated message] 0572732324) The system [employer] generated this result transmitted ref erence range: 0 - 5 HP F. The reference range was not used to int erpret this result as normal/abnormal . BACTERIA (test code = Moderate Negative A 0282960788) MUCOUS (test code = Slight Negative LPF A 8274095779) SQ EPITH (test code = HPF 9148368454) TRANS EPI (test code = <1 See_Comment [Aut omated message] 7625510118) The system [employer] generated this result transmitted ref erence range: <=1 HPF. The reference range was not used to int erpret this result as normal/abnormal . Lab Interpretation (test Abnormal code = 66898-8) [facility] CenterXR ANKLE 3+ VW [id number] 01:53:59There is no acute fracture or dislocation [...] left ankle.RL: 6[facility]ysis[facility] 05:46:16 Test Item Value Reference Range Interpretation Comments APPEARANCE (test code = Hazy Clear A 4886490560) COLOR (test code = Yellow Yellow 8089981310) PH (test code = 4.8-8.0 6943795684) SP GRAVITY (test code = 1.003-1.030 4122597353) GLU U QUAL (test code = Normal Normal 2253273736) BLOOD (test code = 1+ Negative A 1790276699) KETONES (test code = Negative Negative 3259740545) PROTEIN (test code = 30 mg/dL Negative A 2887-8) UROBILIN (test code = Normal Normal 4414383674) BILIRUBIN (test code = Negative Negative 8516323724) NITRITE (test code = Negative Negative 1698019095) LEUK LUIZ (test code = Negative Negative 8145897580) RBC/HPF (test code = See_Comment H [Autom ated message] 7625797910) The system [employer] generated this result transmitted ref erence range: 0 - 3 HP F. The reference range was not used to int erpret this result as normal/abnormal . WBC/HPF (test code = See_Comment [Autom ated message] 6281053986) The system [employer] generated this result transmitted ref erence range: 0 - 5 HP F. The reference range was not used to int erpret this result as normal/abnormal . BACTERIA (test code = Few Negative A 2594271862) MUCOUS (test code = Slight Negative LPF A 0194191790) SQ EPITH (test code = HPF 9211672908) Lab Interpretation (test Abnormal code = 53899-1) [facility] CenterXR LUMBAR SPINE 2 [id number] 05:43:05 No acute osseous findings or significant [...] this study and agree with theabove report. [facility] CenterPOPA [id number] 04:41:00 Test Item Value Reference Range Interpretation Comments POCT PREG (test code = 1605) Negative On board controls acceptable with Present C Line (test code = 3574) POCT PREG LOT # (test code = HCG [id number]) POCT PREG TEST DATE (test 05/15/2022 code = 3576) Lab Interpretation (test code = Normal 01113-3) [facility] 1 VIEW [id number] 18:30:00 [facility]Name[facility] DON[facility] S[facility]Z I : 1985 [facility]: [id number] [place], [place] [address]XYQBDPRHUM IMAGING REPORTPatient Name: DONNY SÁNCHEZ of Service: 26-98-6083Khs: 35 Sex: F Order #: [id number] [facility] 1985 [facility] Number: [id number] Record Number: [id number] Hospital Number: [id number] Physician: Flavio JADE Physician: Eve WALKER: Chest APHistory: Shortness of breathComparison: No comparison availableFindings: No focal consolidation, pleural effusion or pneumothorax. Thecardiac and superior mediastinal silhouettes are within normal limits.Impression:No acutecardiopulmonary process.Electronically Signed By: Jesse Davalos M.D., 11/16/2020 6:28 PMLegally authenticated by MARYLU LOWE JR 2020-11-16 18:28:06COVID SYMPTOMATIC ER [id number] 17:45:00 Test Item Value Reference Range Interpretation Comments CORONAVIRUS (COVID-19)BY PCR (test NEGATIVE code = [id number]) ISTAT [id number] 17:10:00 Test Item Value Reference Range Interpretation Comments ISTAT HCG (test <5.0 IU/L A value of l ess than or code = ISHCG) equal to <5 IU /L is considered NEGA TIVE A value between 5 IU/L and 25 IU/L is cons idered INDETERMINATE A value of >25 IU/L is con sidered POSITIVE ANKLE 3 [id number] 04:24:00 [facility] I : 1985 Sex: [facility] [place], [place] [address]WHNGUCFROM IMAGING REPORTPatient Name: DONNY SÁNCHEZ of Service: 26-28-0711Lza: 35 Sex: F Order #: [id number] [facility]: 1985 X-Ray Number: [id number] Record Number: [id number] Hospital Number: [id number] Physician: Flavio JADE Physician: HAILE JADEPROEDINURE: ANKLE [...] Rutledge MD on10/08/2020 04:23:50Legally authenticated by NAZIA AUGUST [id number] 02:56:00"
[2023-03-18 18:48] LABS: Specific Gravity 1.026 (1.005-1.030)
[2023-03-18 18:50] LABS: Specific Gravity 1.026 (1.005-1.030); Urine Bacteria None Seen /HPF (<20); Urine Bilirubin NEGATIVE (Negative); Urine Blood 1+ (Negative); Urine Clarity Extremely Turbid (Clear); Urine Color Light-Yellow (Yellow); Urine Crystals Unidentified Few /HPF (None Seen); Urine Glucose NEGATIVE (Negative); Urine Mucus Slight /HPF (None Seen); Urine Protein TRACE (Negative); Urine RBC <5 /HPF (None Seen); Urine Urobilinogen Normal (Normal)
--- NOTE | 2023-03-18 18:56 | EDPHYS ---
Physician Documentation [facility] Name: Dionna Pack Age: 37 yrs Sex: Female : 1985 Arrival Date: 03/18/2023 Time: 17:50 Bed IW1 Private MD: ED Physician Nikolas Ladd HPI: 03/18 18:12 This 37 yrs old Female presents to ER via Unassigned with complaints of kb Vaginal Bleeding. 18:12 The patient presents with vaginal bleeding that is spotting. Onset: The kb symptoms/episode began/occurred today. Modifying factors: The symptoms are alleviated by nothing, the symptoms are aggravated by nothing. Associated signs and symptoms: Pertinent positives: vaginal bleeding. Severity of symptoms: At their worst the symptoms were very mild, in the emergency department the symptoms are unchanged. The patient has not experienced similar symptoms in the past. The patient has not recently seen a physician. Pt reports she hasn't had a period in 4 months, had 2 positive tests in November and today had some spotting.. Historical: - Allergies: 18:14 NSAIDS (Non-Steroidal Anti-Inflammatory Drug); aa5 - PMHx: 18:14 Asthma; aa5 - PSHx: 18:14 ; aa5 - Immunization history:: Adult Immunizations unknown. - Social history:: Smoking status: Patient denies any tobacco usage or history of. ROS: 18:12 Constitutional: Negative for fever, chills, and weight loss, kb 18:12 : Positive for vaginal bleeding, 18:12 All other systems are negative, Exam: 18:12 Constitutional: This is a well developed, well nourished patient who is awake, alert, kb and in no acute distress. Head/Face: Normocephalic, atraumatic. ENT: Moist Mucous membranes Cardiovascular: Regular rate Respiratory: Respirations even and unlabored. No increased work of breathing. Talking in full sentences Abdomen/GI: Soft, non-tender. No distention Skin: Warm, dry with normal turgor. Normal color. MS/ Extremity: Pulses equal, no cyanosis. Neurovascular intact. Full, normal range of motion. Neuro: Awake and alert, GCS 15, oriented to person, place, time, and situation. Moves all extremities. Normal gait. Vital Signs: 18:11 BP 128 / 90; Pulse 106; Resp 18 S; Temp 99(TE); Pulse Ox 99% on R/A; Weight 76.66 kg aa5 (R); Height 5 ft. 0 in. (R); 18:11 Body Mass Index 33.01 (76.66 kg, 152.4 cm) aa5 MDM: 17:57 Patient medically screened. kb 18:12 Differential diagnosis: uti, threatened , , menorrhea. Data reviewed: kb vital signs, nurses notes. 18:55 Counseling: I had a detailed discussion with the patient and/or guardian regarding the kb historical points, exam findings, and any diagnostic results supporting the discharge/admit diagnosis, lab results, the need for outpatient follow up, an OB/Gyne specialist, to return to the emergency department if symptoms worsen or persist or if there are any questions or concerns that arise at home. 03/18 18:03 Order name: Test, Urine; Complete Time: 19:01 kb 03/18 18:03 Order name: Urinalysis w/ reflexes; Complete Time: 18:52 kb Administered Medications: No medications were administered Disposition Summary: 03/18/23 18:56 Discharge Ordered Notes: Location: Home kb Condition: Stable kb Diagnosis - Irregular menstruation, unspecified kb Followup: kb - With: Emergency Department - When: As needed - Reason: Worsening of condition Followup: kb - With: Private Physician - When: 2 - 3 days - Reason: Recheck today's complaints, Continuance of care, Re-evaluation by your physician Discharge Instructions: - Discharge Summary Sheet kb - Abnormal Uterine Bleeding, Yeah-ce-Vkxo kb Forms: - Medication Reconciliation Form kb - Thank You Letter kb - Antibiotic Education kb - Prescription Opioid Use kb - Patient Portal Instructions kb - Leadership Thank You Letter kb Signatures: Dispatcher [employer] Richa Navarrete, PLAN NURSE-C SABAS-Jud Avitia, RN RN aa5
--- NOTE | 2023-03-18 18:56 | ER ---
Nurse's Notes [facility] Name: Dionna Pack Age: 37 yrs Sex: Female : 1985 Arrival Date: 03/18/2023 Time: 17:50 Bed IW1 Private MD: Diagnosis: Irregular menstruation, unspecified Presentation: 03/18 18:11 Chief complaint: Patient states: "I haven't had my period for 4 months and today I went aa5 to the restroom and when I wiped there was blood". Pt wants test. Pt states "last time I was they had difficulty telling I was and I didn't find out until I was 6 months ". Coronavirus screen: At this time, the client does not indicate any symptoms associated with coronavirus-19. Ebola Screen: Patient denies travel to an Ebola-affected area in the 21 days before illness onset. Initial Sepsis Screen: Does the patient meet any 2 criteria? No. Patient's initial sepsis screen is negative. Does the patient have a suspected source of infection? No. Patient's initial sepsis screen is negative. Risk Assessment: Do you want to hurt yourself or someone else? Patient reports no desire to harm self or others. Onset of symptoms was March 2023. 18:11 Acuity: CORTES 4 aa5 18:11 Method Of Arrival: Ambulatory aa5 Historical: - Allergies: 18:14 NSAIDS (Non-Steroidal Anti-Inflammatory Drug); aa5 - PMHx: 18:14 Asthma; aa5 - PSHx: 18:14 ; aa5 - Immunization history:: Adult Immunizations unknown. - Social history:: Smoking status: Patient denies any tobacco usage or history of. Assessment: 19:09 Reassessment: Patient is alert, oriented x 3, equal unlabored respirations, skin aa5 warm/dry/pink. Vital Signs: 18:11 BP 128 / 90; Pulse 106; Resp 18 S; Temp 99(TE); Pulse Ox 99% on R/A; Weight 76.66 kg aa5 (R); Height 5 ft. 0 in. (R); 18:11 Body Mass Index 33.01 (76.66 kg, 152.4 cm) aa5 ED Course: 17:54 Patient arrived in ED. mg5 17:57 Richa Carr FNP-C [facility]. kb 17:57 Nikolas Ladd MD is Attending Physician. kb 18:09 Arm band placed on. aa5 18:14 Triage completed. aa5 19:10 No provider procedures requiring assistance completed. Patient did not have IV access aa5 during this emergency room visit. Administered Medications: No medications were administered Outcome: 18:56 Discharge ordered by MD. kb 19:09 Discharged to home ambulatory, aa5 19:09 Condition: stable 19:09 Discharge instructions given to patient, Instructed on discharge instructions, follow up and referral plans. Demonstrated understanding of instructions, follow-up care, Pt notified of need to f/u with internetworking technician, pt states "I have an appointment next Friday" 19:10 Patient left the ED. aa5 Signatures: Richa Carr FNP-C FNP-Jud Avitia, RN RN aa5 Brigitte Silvestre mg5
[2023-03-18 19:14] VITALS: BP 128/90; TEMP 99; O2SAT 99
== END 2023-03-18 19:10 | disposition home or self-care (01) ==
LOC: ER 17:50
DX: N92.6 Irregular menstruation, unspecified (principal)
CPT/HCPCS: 81001; 81025; 99282